=== PATIENT | female | born 1960 | race Caucasian/White ===

== ENCOUNTER 2020-12-18 13:17 | Emergency (ER) | payer SELFPAY ==
[2020-12-18 14:40] LABS: Absolute Lymphocytes (CBC) 2.6 K/uL (0.7-4.9); Basophils % 0.7 % (0-1.3); Hematocrit 24.9 % (36.0-45.0); Lymphocytes % 31.9 % (15.3-44.8); MPV 8.2 fL (7.6-11.3); RBC Red Blood Cell Count 1.84 M/uL (3.86-4.86)
[2020-12-18 14:51] LABS: Protime INR 1.44
--- NOTE | 2020-12-18 15:00 | RAD REPORT ---
EXAM DESCRIPTION: RAD - Chest Single View - 12/18/2020 2:43 pm CLINICAL HISTORY: ABDOMINAL DISTENTION COMPARISON: None TECHNIQUE: AP portable chest image was obtained 12/18/2020 2:43 pm . FINDINGS: Lungs are clear. Mild prominence of the interstitial pattern is favored to be baseline. Fa ilure or volume overload are not suspected. Heart and vasculature are normal. No measurable pleural e ffusion and no pneumothorax. No acute bony abnormality seen. No acute aortic findings suspected. IMPRESSION: No acute cardiopulmonary process.
[2020-12-18] MEDS ORDERED: MORPHINE 2 MG/ML SYR ONE (15:02)
[2020-12-18] MEDS ORDERED: ONDANSETRON 4 MG/2 ML VIAL ONE (15:02)
[2020-12-18 15:11] LABS: ALT/SGPT 48 U/L (12-78); AST/SGOT 116 U/L (15-37); Albumin 2.7 g/dL (3.4-5.0); Alkaline Phosphatase 103 U/L (45-117); BUN Blood Urea Nitrogen 8 mg/dL (7-18); Bicarbonate 24 mmol/L (21-32); Bilirubin Direct 0.7 mg/dL (0-0.2); Bilirubin Total 1.5 mg/dL (0.2-1.0); Glucose Level 92 mg/dL (74-106); Lipase 66 U/L (73-393); Potassium 3.4 mmol/L (3.5-5.1); Protein, Total 6.2 g/dL (6.4-8.2); Sodium Level 140 mmol/L (136-145)
[2020-12-18 15:13] LABS: Magnesium 1.4 mg/dL (1.8-2.4)
[2020-12-18] MEDS ORDERED: DIPHENHYDRAMINE 50 MG/ML VIAL ONE (15:20)
[2020-12-18] MEDS ORDERED: METHYLPREDNISOLONE 125 MG INJ ONE (15:23)
[2020-12-18] MEDS ORDERED: FAMOTIDINE 20 MG/2 ML VIAL IV ONE (15:23)
[2020-12-18 15:49] LABS: Urine Blood Negative (Negative); Urine Glucose Negative (Negative); Urine Protein Negative (Negative); Urine pH 6.5 (5.0-7.0)
[2020-12-18] MEDS ORDERED: Magnesium Sulfate 2gm IVPB 2 G/50 ML BAG IV ONE (15:49)
--- NOTE | 2020-12-18 16:07 | RAD REPORT ---
EXAM DESCRIPTION: CT - Abdomen Pelvis W Contrast - 12/18/2020 3:48 pm CLINICAL HISTORY: Abdominal distention;Abd pain, history of cirrhosis, history hepatitis-B and C COMPARISON: No comparisons TECHNIQUE: Biphasic, helical CT imaging of the abdomen and pelvis was performed following 100 ml non -ionic IV contrast. No oral contrast administered. All CT scans are performed using dose optimization technique as appropriate and may include automated exposure control or mA/KV adjustment according to patient size. FINDINGS: No suspicious findings in the lung bases. Liver is upper normal to slightly enlarged in size and shows nodular capsule contour. Diffuse fatty i nfiltration present with no focal liver parenchymal lesion. No portal vein abnormality. No focal panc reatic process identifiable. No splenomegaly or focal splenic finding. Multiple gallstones layer in t he dependent portion the gallbladder. Slight gallbladder wall thickening or edema seen. Biliary tree is prominent without intrahepatic dilatation. Duct stones can additional gallstones can be occult. Symmetric renal function is seen with no hydronephrosis or suspicious renal mass. No pyelonephritis o r acute parenchymal process. Urinary bladder is mostly contracted which limits assessment. No bladder stone or gross bladder wall abnormality seen. Uterus and ovaries show no suspicious findings. No adr enal abnormalities. No gastric wall abnormality. Small bowel loops are not dilated. No findings to suspect acute appendic itis. There may be minimal wall thickening of the colon. This could be due to electrolyte tissues. No colon mass seen. Acute colitis is not likely or only minimal in severity. Small gastrohepatic ligame nt lymph node is seen. No free air or pneumatosis. Small quantity of free fluid is present in the dependent portion of the pelvis and adjacent to the liver. No mass or bulky lymphadenopathy. Calcifications and surgical cli ps are seen along the pelvic floor. Patient has a very small fat only umbilical hernia. Atrophy of th e abdominal wall musculature noted. Disc and bone degenerative changes are present. No pathologic bone process seen. IMPRESSION: Cirrhosis and fatty infiltration of the liver with no focal liver lesion or portal vein abnormality. Ascites is minimal. No acute GI abnormality confirmed. Mild enteritis is possible.
[2020-12-18 16:10] LABS: Urine Bacteria <20 /HPF (<20); Urine RBC <5 /HPF (NONE SEEN)
--- NOTE | 2020-12-18 16:40 | EDPHYS ---
Physician Documentation [facility] Name: Selina Jasso Age: 60 yrs Sex: Female : 1960 Arrival Date: 12/18/2020 Time: 13:22 Bed 18 Private MD: ED Physician Reed Landeros HPI: 12/18 14:25 This 60 yrs old Female presents to ER via Ambulatory with complaints of cp Abdominal Pain, Urinary Problem. 14:25 The patient presents with abdominal distention that is diffuse. cp 14:25 Onset: The symptoms/episode began/occurred gradually. cp 14:25 The symptoms do not radiate. Associated signs and symptoms: Pertinent positives: cp nausea, flank pain, Pertinent negatives: blood in stools, chest pain, constipation, diarrhea, fever. The symptoms are described as constant. Modifying factors: the symptoms are aggravated by pressure. Historical: - Allergies: 13:42 Codeine; ss 13:42 clindamycin HCl; ss 14:00 Zofran; jd3 - PMHx: 13:42 Cirrhosis; Hypertension; Hepatits B\T\C; ss - PSHx: 13:42 Tubal ligation; Tonsillectomy; L arm; leg; ss - Immunization history:: Adult Immunizations up to date. - Social history:: Smoking status: Patient denies any tobacco usage or history of. ROS: 14:30 Constitutional: Negative for body aches, chills, fever, poor PO intake. cp 14:30 Eyes: Negative for injury, pain, redness, and discharge. cp 14:30 ENT: Negative for ear pain, sore throat, difficulty swallowing, difficulty handling secretions. 14:30 Cardiovascular: Negative for chest pain, edema, palpitations. 14:30 Respiratory: Negative for cough, shortness of breath, wheezing. 14:30 Abdomen/GI: Positive for abdominal pain, abdominal distension, Negative for vomiting, diarrhea, anorexia, black/tarry stool, rectal bleeding. 14:30 Back: Negative for radiated pain. 14:30 Neuro: Negative for altered mental status, headache, weakness. 14:30 All other systems are negative. Exam: 14:35 Constitutional: The patient appears in no acute distress, alert, awake, cp non-diaphoretic, non-toxic, well developed, well nourished. 14:35 Head/Face: Normocephalic, atraumatic. cp 14:35 Eyes: Periorbital structures: appear normal, Conjunctiva: normal, no exudate, no injection, Sclera: no appreciated abnormality, Lids and lashes: appear normal, bilaterally. 14:35 ENT: External ear(s): are unremarkable, Nose: is normal, Mouth: Lips: moist, Oral mucosa: moist, Posterior pharynx: Airway: no evidence of obstruction, patent. 14:35 Chest/axilla: Inspection: normal, Palpation: is normal, no crepitus, no tenderness. 14:35 Cardiovascular: Rate: tachycardic, Rhythm: regular, Edema: is not appreciated, JVD: is not appreciated. 14:35 Respiratory: the patient does not display signs of respiratory distress, Respirations: normal, no use of accessory muscles, no retractions, labored breathing, is not present, Breath sounds: are clear throughout, no decreased breath sounds, no stridor, no wheezing. 14:35 Abdomen/GI: Inspection: distension, that is mild, in the abdomen diffusely, Bowel sounds: active, all quadrants, Palpation: soft, in all quadrants, moderate abdominal tenderness, in all quadrants, rebound tenderness, is not appreciated, involuntary guarding, is not appreciated. 14:35 Back: CVA tenderness, is absent. 14:35 Skin: no rash present. 14:35 Neuro: Orientation: to person, place \T\ time. Mentation: is normal. 15:43 ECG was reviewed by the Attending Physician. cp Vital Signs: 13:38 BP 119 / 81; Pulse 101; Resp 18; Temp 98.4(TE); Pulse Ox 99% on R/A; Height 5 ft. 2 in. ss (157.48 cm); Pain 9/10; 16:09 Pulse 72; Resp 18 S; Pulse Ox 96% on R/A; jd3 18:01 BP 121 / 79; Pulse 70; Resp 17 S; Pulse Ox 97% on R/A; jd3 MDM: 14:14 Patient medically screened. cp 16:38 Data reviewed: vital signs, nurses notes, lab test result(s), EKG, radiologic studies, cp CT scan, plain films. 16:38 Test interpretation: by ED physician or midlevel provider: ECG, plain radiologic cp studies. 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 ED course: VSS. Pain improved. Will discharge to home for continued monitoring. Patient instructed to f/u with GI for chronic cirrhosis. 12/18 14:17 Order name: Basic Metabolic Panel; Complete Time: 15:19 cp 12/18 15:19 Interpretation: Normal except: K 3.4; CL 109. cp 12/18 14:17 Order name: CBC with Diff cp 12/18 15:20 Interpretation: Normal except: RBC 1.84; HGB 8.5; HCT 24.9; MCV 135.4; MCH 46.0; PLT cp 122; RDW 16.2. 12/18 14:17 Order name: Hepatic Function; Complete Time: 15:19 cp 12/18 15:20 Interpretation: Normal except: AST 116; BILIT 1.5; BILID 0.7; TP 6.2; ALB 2.7; A/G 0.8. cp 12/18 14:17 Order name: Lipase; Complete Time: 15:19 cp 12/18 16:28 Interpretation: LIP 66; Reviewed. cp 12/18 14:17 Order name: Magnesium; Complete Time: 15:19 cp 12/18 15:20 Interpretation: Abnormal: MG 1.4. cp 12/18 14:17 Order name: PT-INR; Complete Time: 15:19 cp 12/18 16:36 Interpretation: Abnormal: PT 16.6. cp 12/18 14:17 Order name: Ptt, Activated; Complete Time: 15:19 cp 12/18 14:17 Order name: Urine Microscopic Only; Complete Time: 16:27 cp 12/18 16:27 Interpretation: Reviewed. cp 12/18 14:17 Order name: XRAY Chest (1 view); Complete Time: 15:19 cp 12/18 15:21 Order name: CT Abd/Pelvis - IV Contrast Only; Complete Time: 16:27 cp 12/18 15:49 Order name: Urine Dipstick-Ancillary; Complete Time: 16:27 EDMS 12/18 16:46 Order name: CBC Smear Scan EDMS 12/18 14:17 Order name: IV Saline Lock; Complete Time: 14:18 cp 12/18 14:17 Order name: Labs collected and sent; Complete Time: 14:20 cp 12/18 15:21 Order name: EKG; Complete Time: 15:22 cp 12/18 15:21 Order name: EKG - Nurse/Tech; Complete Time: 15:40 cp EC:43 Rate is 77 beats/min. Rhythm is regular. WA interval is normal. QRS interval is normal. cp QT interval is normal. T waves are Inverted in lead aVR. Interpreted by me. Reviewed by me. Administered Medications: 14:48 Drug: morphine 2 mg Route: IVP; Site: left forearm; jd3 15:42 Follow up: Response: No adverse reaction; RASS: Alert and Calm (0) jd3 14:49 Drug: Zofran (Ondansetron) 4 mg Route: IVP; Site: left forearm; jd3 15:03 Follow up: Response: Adverse reaction, Physician notified; Adverse reaction, Physician jd3 notified, pt with hives up her arm from the site of the IV that itch. 15:03 Drug: Benadryl (diphenhydrAMINE) 25 mg Route: IVP; Site: left forearm; jd3 15:10 Drug: Pepcid (famotidine) 20 mg Route: IVP; Site: left forearm; jd3 15:11 Drug: SOLU-Medrol (methylPrednisoLONE) 125 mg Route: IVP; Site: left forearm; jd3 15:40 Drug: Magnesium Sulfate 2 grams Route: IVPB; Infused Over: 2 hrs; Site: left forearm; jd3 17:34 Drug: Potassium Effervescent Tablet 50 mEq Route: PO; jd3 17:34 Drug: ProTONIX (pantoprazole) 40 mg Route: PO; jd3 Disposition: 12/19 07:17 Co-signature as Attending Physician, Reed Landeros MD I agree with the assessment and reyna plan of care. Disposition: 12/18/20 16:39 Discharged to Home. Impression: Unspecified cirrhosis of liver, Disorder of teeth and supporting structures, unspecified, Hypomagnesemia, Ascites. - Condition is Stable. - Discharge Instructions: Ascites, Dental Pain, Hypomagnesemia. - Prescriptions for Amoxicillin 875 mg Oral Tablet - take 1 tablet by ORAL route every 12 hours for 10 days; 20 tablet. Bentyl 20 mg Oral Tablet - take 2 tablets by ORAL route every 6 hours As needed; 30 tablet. Protonix 40 mg Oral Tablet - take 1 tablet by ORAL route once daily; 30 tablet. - Medication Reconciliation Form, Thank You Letter, Antibiotic Education, Prescription Opioid Use form. - Follow up: Angelo Dela Cruz MD; When: 2 - 3 days; Reason: Recheck today's complaints. - Problem is an ongoing problem. - Symptoms have improved. Signatures: Dispatcher [employer] EDReed Canales MD MD cha Williams, Irene, RN RN iw Joslyn Foy RN RN ss Reed Garg, REYNA PA Tra West RN RN jd3 Corrections: (The following items were deleted from the chart) 12/18 16:40 16:39 12/18/2020 16:39 Discharged to Home. Impression: Unspecified cirrhosis of liver; cp Disorder of teeth and supporting structures, unspecified; Hypomagnesemia. Condition is Stable. Forms are Medication Reconciliation Form, Thank You Letter, Antibiotic Education, Prescription Opioid Use. Follow up: Angelo Dela Cruz; When: 2 - 3 days; Reason: Recheck today's complaints. Problem is an ongoing problem. Symptoms have improved. cp 18:06 16:40 12/18/2020 16:39 Discharged to Home. Impression: Unspecified cirrhosis of liver; iw Disorder of teeth and supporting structures, unspecified; Hypomagnesemia; Ascites. Condition is Stable. Discharge Instructions: Ascites, Dental Pain, Hypomagnesemia. Forms are Medication Reconciliation Form, Thank You Letter, Antibiotic Education, Prescription Opioid Use. Follow up: Angelo Dela Cruz; When: 2 - 3 days; Reason: Recheck today's complaints. Problem is an ongoing problem. Symptoms have improved. cp
--- NOTE | 2020-12-18 16:40 | ER ---
Nurse's Notes [facility] Name: Selina Jasso Age: 60 yrs Sex: Female : 1960 Arrival Date: 12/18/2020 Time: 13:22 Bed 18 Private MD: Diagnosis: Unspecified cirrhosis of liver;Disorder of teeth and supporting structures, unspecified;Hypomagnesemia;Ascites Presentation: 12/18 13:38 Chief complaint: Patient states: "I have liver cirrhosis and I'm retaining water bad. I ss also have reflux and kidney pain.". Coronavirus screen: Client denies travel out of the [place] in the last 14 days. Ebola Screen: Patient denies exposure to infectious person. Patient denies travel to an Ebola-affected area in the 21 days before illness onset. Initial Sepsis Screen: Does the patient meet any 2 criteria? No. Patient's initial sepsis screen is negative. Does the patient have a suspected source of infection? No. Patient's initial sepsis screen is negative. Risk Assessment: Do you want to hurt yourself or someone else? Patient reports no desire to harm self or others. Onset of symptoms was December 04, 2020. 13:38 Method Of Arrival: Ambulatory ss 13:38 Acuity: GABRIEL 3 ss Historical: - Allergies: 13:42 Codeine; ss 13:42 clindamycin HCl; ss 14:00 Zofran; jd3 - PMHx: 13:42 Cirrhosis; Hypertension; Hepatits B\\T\\C; ss - PSHx: 13:42 Tubal ligation; Tonsillectomy; L arm; leg; ss - Immunization history:: Adult Immunizations up to date. - Social history:: Smoking status: Patient denies any tobacco usage or history of. Screenin:11 Abuse screen: Denies threats or abuse. Nutritional screening: No deficits noted. jd3 Tuberculosis screening: No symptoms or risk factors identified. Fall Risk Ambulatory Aid- None/Bed Rest/Nurse Assist (0 pts). Gait- Normal/Bed Rest/Wheelchair (0 pts) Mental Status- Oriented to own ability (0 pts). Total Malave Fall Scale indicates No Risk (0-24 pts). Assessment: 14:05 General: Appears in no apparent distress. comfortable, Behavior is calm, cooperative, jd3 appropriate for age. Pain: Complains of pain in abdomen Quality of pain is described as aching, pressure. Neuro: Level of Consciousness is awake, alert, obeys commands, Oriented to person, place, time, situation. Cardiovascular: Denies chest pain, Capillary refill < 3 seconds Patient's skin is warm and dry. Respiratory: Airway is patent Respiratory effort is even, unlabored, Respiratory pattern is regular, symmetrical, Denies cough, shortness of breath. GI: Abdomen is round distended, Abd is soft X 4 quads Reports lower abdominal pain, upper abdominal pain, Patient currently denies diarrhea, nausea, vomiting. : No signs and/or symptoms were reported regarding the genitourinary system. EENT: No signs and/or symptoms were reported regarding the EENT system. Derm: Skin is intact, Skin is dry, Skin is normal, Skin temperature is warm. Musculoskeletal: Circulation, motion, and sensation intact. Range of motion: intact in all extremities. 15:00 Reassessment: Patient appears in no apparent distress at this time. No changes from jd3 previously documented assessment. Patient and/or family updated on plan of care and expected duration. Pain level reassessed. Patient is alert, oriented x 3, equal unlabored respirations, skin warm/dry/pink. 16:00 Reassessment: Patient appears in no apparent distress at this time. No changes from jd3 previously documented assessment. Patient and/or family updated on plan of care and expected duration. Pain level reassessed. Patient is alert, oriented x 3, equal unlabored respirations, skin warm/dry/pink. 17:00 Reassessment: Patient appears in no apparent distress at this time. Patient and/or jd3 family updated on plan of care and expected duration. Pain level reassessed. Patient is alert, oriented x 3, equal unlabored respirations, skin warm/dry/pink. 18:00 Reassessment: Patient appears in no apparent distress at this time. Patient and/or jd3 family updated on plan of care and expected duration. Pain level reassessed. Patient is alert, oriented x 3, equal unlabored respirations, skin warm/dry/pink. reported understanding of discharge instructions, even and steady gait upon discharge. Vital Signs: 13:38 BP 119 / 81; Pulse 101; Resp 18; Temp 98.4(TE); Pulse Ox 99% on R/A; Height 5 ft. 2 in. ss (157.48 cm); Pain 9/10; 16:09 Pulse 72; Resp 18 S; Pulse Ox 96% on R/A; jd3 18:01 BP 121 / 79; Pulse 70; Resp 17 S; Pulse Ox 97% on R/A; jd3 ED Course: 13:22 Patient arrived in ED. mr 13:40 Triage completed. ss 13:42 Arm band placed on right wrist. ss 14:07 Reed Garg PA is PHCP. cp 14:07 Reed Landeros MD is Attending Physician. cp 14:07 Tra Spaulding RN is Primary Nurse. jd3 14:35 Inserted saline lock: 20 gauge in left forearm, using aseptic technique. Blood tr6 collected. 14:43 XRAY Chest (1 view) In Process Unspecified. EDMS 15:00 Patient has correct armband on for positive identification. Placed in gown. Bed in low jd3 position. Call light in reach. Side rails up X 1. 15:00 Pulse ox on. NIBP on. jd3 15:48 CT Abd/Pelvis - IV Contrast Only In Process Unspecified. EDMS 16:38 Angelo Dela Cruz MD is Referral Physician. cp 18:03 No provider procedures requiring assistance completed. IV discontinued, intact, jd3 bleeding controlled, No redness/swelling at site. Pressure dressing applied. Administered Medications: 14:48 Drug: morphine 2 mg Route: IVP; Site: left forearm; jd3 15:42 Follow up: Response: No adverse reaction; RASS: Alert and Calm (0) jd3 14:49 Drug: Zofran (Ondansetron) 4 mg Route: IVP; Site: left forearm; jd3 15:03 Follow up: Response: Adverse reaction, Physician notified; Adverse reaction, Physician jd3 notified, pt with hives up her arm from the site of the IV that itch. 15:03 Drug: Benadryl (diphenhydrAMINE) 25 mg Route: IVP; Site: left forearm; jd3 15:10 Drug: Pepcid (famotidine) 20 mg Route: IVP; Site: left forearm; jd3 15:11 Drug: SOLU-Medrol (methylPrednisoLONE) 125 mg Route: IVP; Site: left forearm; jd3 15:40 Drug: Magnesium Sulfate 2 grams Route: IVPB; Infused Over: 2 hrs; Site: left forearm; jd3 17:34 Drug: Potassium Effervescent Tablet 50 mEq Route: PO; jd3 17:34 Drug: ProTONIX (pantoprazole) 40 mg Route: PO; jd3 Outcome: 16:39 Discharge ordered by MD. cp 18:05 Discharged to home ambulatory. iw 18:05 Condition: good 18:05 Discharged to home ambulatory, with family. jd3 18:05 Condition: stable 18:05 Discharge instructions given to patient, Instructed on discharge instructions, follow up and referral plans. medication usage, Demonstrated understanding of instructions, follow-up care, medications, Prescriptions given X 3. 18:06 Discharge instructions given to patient, Instructed on discharge instructions, follow iw up and referral plans. medication usage, Demonstrated understanding of instructions, follow-up care, medications, Prescriptions given X 3. 18:06 Patient left the ED. iw Signatures: Dispatcher [employer] EDDC Joel Linda Alix Herrera RN RN Joslyn Foy RN RN Reed Garg PA PA cp Davies, Jonathon, RN RN j Lesly Piper RN RN tr6 Corrections: (The following items were deleted from the chart) 15:41 15:03 Benadryl (diphenhydrAMINE) 25 mg IVP in left antecubital jd3 j 15:41 15:10 Pepcid (famotidine) 20 mg IVP in left antecubital [facility] j 15:41 15:11 SOLU-Medrol (methylPrednisoLONE) 125 mg IVP in left antecubital jd3 j 15:42 14:48 morphine 2 mg IVP in left antecubital jd3 j 15:43 14:49 Zofran (Ondansetron) 4 mg IVP in left antecubital jd3 j
[2020-12-18 16:49] LABS: Anisocytosis 2+; Blood Morphology Comment NOTED (NOT SEEN); Platelet Estimate DECR; Poikilocytosis 2+; White Blood Cell Scan OK (OK)
[2020-12-18] MEDS ORDERED: PANTOPRAZOLE 40MG TABLET PO ONE ×2 (17:30→17:53)
[2020-12-18] MEDS ORDERED: POTASSIUM 25 MEQ EFFERV TAB ONE (17:31)
[2020-12-18 18:21] VITALS: TEMP 98.4
[2020-12-18 18:24] VITALS: BP 121/79; O2SAT 97
--- NOTE | 2020-12-19 10:28 | EKG ---
Test Date: 2020-12-18 Test Time: 15:36:50 Fireboat Operator: DELVIS MEASUREMENT RESULTS: Intervals: Rate: 77 PA: 136 QRSD: 68 QT: 418 QTc: 473 [place]: P: 65 PA: 136 QRS: 49 T: 54 INTERPRETIVE STATEMENTS: Normal sinus rhythm Cannot rule out Anterior infarct, age undetermined Abnormal ECG No previous ECG available for comparison Electronically Signed On 12-19-20 10:25:47 CDT by Luther Rhoades
== END 2020-12-18 18:06 | disposition home or self-care (01) ==
LOC: ER 13:17
DX: R18.8 Other ascites (principal); K74.60 Unspecified cirrhosis of liver; E83.42 Hypomagnesemia; K08.9 Disorder of teeth and supporting structures, unspecified; I10 Essential (primary) hypertension; Z88.1 Allergy status to other antibiotic agents; Z88.5 Allergy status to narcotic agent; Z88.8 Allergy status to other drugs, medicaments and biological substances
CPT/HCPCS: 36415; 71045; 74177; 80048; 80076; 81003; 81015; 83690; 83735; 85025; 85610; 85730; 93005; 96374; 96375; 99284; J1200; J2270; J2405; J2930; J3475; Q9967

== ENCOUNTER 2021-01-16 16:43 | Emergency (ER) | payer SELFPAY ==
--- OUTSIDE RECORDS SUMMARY | 2021-01-16 16:45 | XMS REPORT | Continuity of Care Document ---
:1960 Author Organization [facility] t Address [address] [place] [address] Care Team Providers Name Role Phone [place] Attending Clinician Unavailable Betsy Gomez MD Attending Clinician Doctor Unassigned, Name Attending Clinician Unavailable Problems This patient has no known problems. Allergies, Adverse Reactions, Alerts This patient has no known allergies or adverse reactions. Medications This patient has no known medications. Procedures This patient has no known procedures. Encounters Start End Encounter Admission Attending Care Care Encounter Source Date/Time Date/Time Type Type Clinicians Facility Department ID 2020-11-20 2020-11-20 Letter JAMES Titus [id number] 00:00:00 00:00:00 (Out) [facility]rology [facility] [id number] [facility] [id number] 2020-08-14 2020-08-14 Telephone SHON Gomez [id number] 00:00:00 00:00:00 Norma [facility] [id number] [facility] [place] [id number] [facility] [id number] [facility] 2020-07-20 2020-07-20 Orders Doctor RHODES [id number] 00:00:00 00:00:00 Only Unassigned, DEE [id number] [facility] [id number] Results This patient has no known results.
[2021-01-16 21:18] LABS: Absolute Lymphocytes (CBC) 2.1 K/uL (0.7-4.9); Hematocrit 33.3 % (36.0-45.0); Lymphocytes % 18.1 % (15.3-44.8); MPV 8.3 fL (7.6-11.3); RBC Red Blood Cell Count 2.77 M/uL (3.86-4.86)
[2021-01-16 21:19] LABS: Protime INR 1.44
--- NOTE | 2021-01-16 21:30 | RAD REPORT ---
EXAM DESCRIPTION: RAD - Chest Single View - 01/16/2021 8:50 pm CLINICAL HISTORY: COUGH COMPARISON: Chest Single View dated 12/18/2020 FINDINGS: No evidence of edema or pneumonia. The heart size is within normal limits.No acute osseous abnormality. No significant pleural effusions or pneumothorax. IMPRESSION: No acute cardiopulmonary disease.
[2021-01-16] MEDS ORDERED: NA CHLORIDE 0.9% 1,000 ML ONE (21:34)
[2021-01-16] MEDS ORDERED: FAMOTIDINE 20 MG/2 ML VIAL IV ONE (21:34)
[2021-01-16 21:38] LABS: ALT/SGPT 31 U/L (12-78); AST/SGOT 63 U/L (15-37); Albumin 2.1 g/dL (3.4-5.0); Alkaline Phosphatase 72 U/L (45-117); BUN Blood Urea Nitrogen 9 mg/dL (7-18); Bicarbonate 22 mmol/L (21-32); Bilirubin Direct 0.4 mg/dL (0-0.2); Bilirubin Total 0.7 mg/dL (0.2-1.0); Glucose Level 137 mg/dL (74-106); Lipase 81 U/L (73-393); Magnesium 1.8 mg/dL (1.8-2.4); NT PRO-BNP 433 pg/mL (<125); Potassium 3.5 mmol/L (3.5-5.1); Protein, Total 6.5 g/dL (6.4-8.2); Sodium Level 142 mmol/L (136-145); Troponin (Emerg Dept Use Only) < 0.02 ng/mL (0.0-0.045)
[2021-01-16 21:39] LABS: Platelet Estimate ADEQ; White Blood Cell Scan OK (OK)
[2021-01-16 21:40] LABS: Blood Morphology Comment NOTED (NOT SEEN); Macrocytosis 3+
[2021-01-16 22:03] LABS: Urine Blood Negative (Negative); Urine Glucose Negative (Negative); Urine Protein 1+ (Negative); Urine Specific Gravity 1.025 (1.005-1.030); Urine pH 5.5 (5.0-7.0)
--- NOTE | 2021-01-16 22:08 | RAD REPORT ---
EXAM DESCRIPTION: CT - Head Brain Wo Cont - 01/16/2021 9:57 pm COMPARISON: None. TECHNIQUE: Axial 5 mm thick images of the head were obtained without IV contrast. All CT scans are performed using dose optimization technique as appropriate and may include automated exposure control or mA/KV adjustment according to patient size. FINDINGS: No intracranial hemorrhage, mass, edema or shift of mid-line structures. No acute infarcti on changes seen. No abnormal extra-axial fluid collections. Remote appearing left basal ganglia lacun ar infarct. Mild chronic small vessel ischemic changes. Mastoid air cells and visualized portions of the paranasal sinuses are clear. No acute bony findings. IMPRESSION: Negative non-contrast CT head examination.
--- NOTE | 2021-01-16 22:16 | RAD REPORT ---
EXAM DESCRIPTION: CTAbdomen Pelvis W Contrast - 01/16/2021 10:00 pm CLINICAL HISTORY: Abdominal pain. Abd pain;Abdominal distention COMPARISON: Abdomen Pelvis W Contrast dated 01/04/2021; Abdomen Pelvis W Contrast dated 12/18/2020; Cholangiogram dated 01/04/2021 TECHNIQUE: Biphasic CT imaging of the abdomen and pelvis was performed with 100 ml non-ionic IV cont rast. All CT scans are performed using dose optimization technique as appropriate and may include automated exposure control or mA/KV adjustment according to patient size. FINDINGS: Dependent atelectasis. Cirrhotic liver morphology. No focal liver lesions are seen. Surgical changes from recent cholecystec letitia. There is a mild to moderate volume of free air within the abdomen with some fluid as well. No l oculated fluid collections are identified. No bowel obstruction is identified. Atherosclerosis. Renal scarring. The spleen is within normal limits. The former location of the patient's right lower quadr ant surgical drain noted where there is gas in the anterior abdominal wall as well as a tract of flui d. Slight inferior endplate deformity of T12 is unchanged. New T10 compression deformity with less than 20% loss of height. . IMPRESSION: 1. Surgical changes from recent cholecystectomy. Moderate volume of free air and free f luid which is more than expected given recent surgery and could reflect hollow viscus perforation. No discrete collection to suggest abscess. 2. New mild superior endplate compression deformity at T10 concerning for a acute compression fractur e. No bony retropulsion.
--- NOTE | 2021-01-16 22:43 | EDPHYS ---
Physician Documentation [facility] Name: Selina Hickey Age: 60 yrs Sex: Female : 1960 Arrival Date: 01/16/2021 Time: 16:44 Bed 17 Private MD: ARNOLD Physician Reed Landeros HPI: 01/16 20:38 This 60 yrs old Female presents to ER via Wheelchair with complaints of reyna bowel/urine incontinence, General Weakness. 20:38 The patient presents with abdominal pain abdominal distention in the upper abdomen, in reyna the lower abdomen. Onset: The symptoms/episode began/occurred 2 day(s) ago. weak all over , cirrhosis, draining RUQ, drain out, vel last week. Onset: The symptoms/episode began/occurred 3 day(s) ago. The symptoms do not radiate. Associated signs and symptoms: none. The symptoms are described as constant, crampy. Modifying factors: The symptoms are alleviated by nothing, the symptoms are aggravated by nothing. Severity of pain: At its worst the pain was mild moderate in the emergency department the pain is unchanged. Severity of symptoms: At their worst the symptoms were mild moderate in the emergency department the symptoms are unchanged. Historical: - Allergies: 16:53 Codeine; hb 16:53 Clindamycin; hb 16:53 Vancomycin; hb 16:53 Zofran; hb - PMHx: 16:53 Cirrhosis; Hepatits B\T\C; Hypertension; hb - Immunization history:: Adult Immunizations up to date. - Social history:: Smoking status: Patient denies any tobacco usage or history of. - Family history:: not pertinent. ROS: 20:38 Constitutional: Negative for fever, chills, and weight loss, Eyes: Negative for injury, reyna pain, redness, and discharge, ENT: Negative for injury, pain, and discharge, Neck: Negative for injury, pain, and swelling, Cardiovascular: Negative for chest pain, palpitations, and edema, Respiratory: Negative for shortness of breath, cough, wheezing, and pleuritic chest pain, Back: Negative for injury and pain, : Negative for injury, bleeding, discharge, and swelling, MS/Extremity: Negative for injury and deformity, Skin: Negative for injury, rash, and discoloration, Neuro: Negative for headache, weakness, numbness, tingling, and seizure, Psych: Negative for depression, anxiety, suicide ideation, homicidal ideation, and hallucinations, Allergy/Immunology: Negative for hives, rash, and allergies, Endocrine: Negative for neck swelling, polydipsia, polyuria, polyphagia, and marked weight changes, Hematologic/Lymphatic: Negative for swollen nodes, abnormal bleeding, and unusual bruising. 20:38 Abdomen/GI: Positive for Exam: 20:38 Constitutional: This is a well developed, well nourished patient who is awake, alert, reyna and in no acute distress. Head/Face: Normocephalic, atraumatic. Eyes: Pupils equal round and reactive to light, extra-ocular motions intact. Lids and lashes normal. Conjunctiva and sclera are non-icteric and not injected. Cornea within normal limits. Periorbital areas with no swelling, redness, or edema. ENT: Nares patent. No nasal discharge, no septal abnormalities noted. Tympanic membranes are normal and external auditory canals are clear. Oropharynx with no redness, swelling, or masses, exudates, or evidence of obstruction, uvula midline. Mucous membranes moist. Neck: Trachea midline, no thyromegaly or masses palpated, and no cervical lymphadenopathy. Supple, full range of motion without nuchal rigidity, or vertebral point tenderness. No Meningismus. Chest/axilla: Normal chest wall appearance and motion. Nontender with no deformity. No lesions are appreciated. Cardiovascular: Regular rate and rhythm with a normal S1 and S2. No gallops, murmurs, or rubs. Normal PMI, no JVD. No pulse deficits. Respiratory: Lungs have equal breath sounds bilaterally, clear to auscultation and percussion. No rales, rhonchi or wheezes noted. No increased work of breathing, no retractions or nasal flaring. Back: No spinal tenderness. No costovertebral tenderness. Full range of motion. Female : Normal external genitalia. Skin: Warm, dry with normal turgor. Normal color with no rashes, no lesions, and no evidence of cellulitis. MS/ Extremity: Pulses equal, no cyanosis. Neurovascular intact. Full, normal range of motion. Neuro: Awake and alert, GCS 15, oriented to person, place, time, and situation. Cranial nerves II-XII grossly intact. Motor strength 5/5 in all extremities. Sensory grossly intact. Cerebellar exam normal. Normal gait. Psych: Awake, alert, with orientation to person, place and time. Behavior, mood, and affect are within normal limits. 20:38 Abdomen/GI: Bowel sounds: active, Palpation: mild abdominal tenderness, in all quadrants, Liver: is firm, Hernia: not appreciated. 20:38 Skin: Appearance: Color: pale. 21:32 ECG was reviewed by the Attending Physician. [facility] Vital Signs: 16:49 BP 108 / 79; Pulse 98; Resp 20; Temp 97.5; Pulse Ox 98% on R/A; Weight 54.43 kg; Height hb 5 ft. 2 in. (157.48 cm); Pain 8/10; 16:49 Body Mass Index 21.95 (54.43 kg, 157.48 cm) hb MDM: 20:11 Patient medically screened. reyna 20:41 Differential Diagnosis altered mental status. Differential diagnosis: bowel reyna obstruction, gastritis, non-specific abd pain, pancreatitis, Peptic Ulcer Disease, Peritonitis, urinary tract infection. Data reviewed: vital signs, nurses notes, lab test result(s), EKG, radiologic studies, CT scan, plain films. Data interpreted: residential monitor: rate is 98 beats/min, rhythm is regular, Pulse oximetry: on room air is 98 %. Test interpretation: by ED physician or midlevel provider: ECG, plain radiologic studies. Counseling: I had a detailed discussion with the patient and/or guardian regarding: the historical points, exam findings, and any diagnostic results supporting the discharge/admit diagnosis, lab results, radiology results. 22:43 Physician consultation: Timo Priest MD and will see patient in office, on . 01/16 20:37 Order name: Basic Metabolic Panel [facility] 01/16 20:37 Order name: CBC with Diff [facility] 01/16 20:37 Order name: LFT's; Complete Time: 21:39 [facility] 01/16 20:37 Order name: Magnesium; Complete Time: 21:39 [facility] 01/16 20:37 Order name: NT PRO-BNP; Complete Time: 21:39 [facility] 01/16 20:37 Order name: PT-INR; Complete Time: 21:39 [facility] 01/16 20:37 Order name: Troponin (emerg Dept Use Only); Complete Time: 21:39 [facility] 01/16 20:37 Order name: Lipase; Complete Time: 21:39 [facility] 01/16 20:37 Order name: AMMONIA; Complete Time: 21:39 [facility] 01/16 20:37 Order name: Urine Culture [facility] 01/16 20:38 Order name: Basic Metabolic Panel; Complete Time: 21:39 [facility] 01/16 20:38 Order name: CBC with Automated Diff; Complete Time: 21:59 [facility] 01/16 20:47 Order name: Type And Screen [facility] 01/16 20:37 Order name: XRAY Chest (1 view); Complete Time: 21:39 [facility] 01/16 20:37 Order name: EKG; Complete Time: 20:38 [facility] 01/16 20:37 Order name: Cardiac monitoring; Complete Time: 22:25 [facility] 01/16 20:37 Order name: EKG - Nurse/Tech; Complete Time: 21:30 [facility] 01/16 20:37 Order name: IV Saline Lock; Complete Time: 21:30 [facility] 01/16 20:37 Order name: Labs collected and sent; Complete Time: 21:30 [facility] 01/16 20:37 Order name: O2 Per Protocol; Complete Time: 21:30 [facility] 01/16 20:37 Order name: CT Head Brain wo Cont; Complete Time: 22:30 [facility] 01/16 20:37 Order name: CT Abd/Pelvis - IV Contrast Only; Complete Time: 22:30 [facility] 01/16 21:40 Order name: CBC Smear Scan; Complete Time: 21:59 [facility] 01/16 22:03 Order name: Urine Dipstick-Ancillary; Complete Time: 22:30 [facility] 01/16 23:09 Order name: SARS-COV-2 RT PCR [facility] 01/16 20:37 Order name: O2 Sat Monitoring; Complete Time: 21:30 [facility] 01/16 20:37 Order name: Urine Dipstick-Ancillary (obtain specimen); Complete Time: 22:25 [facility] EC:32 Rate is 76 beats/min. Rhythm is regular. QRS S[place] is Normal. NC interval is normal. QRS reyna interval is normal. QT interval is normal. No Q waves. T waves are Normal. No ST changes noted. Clinical impression: Normal ECG and No evidence of ischemia. Interpreted by me. Reviewed by me. Administered Medications: 21:47 Drug: NS 0.9% 1000 ml Route: IV; Rate: 125 ml/hr; Site: right forearm; bs2 21:47 Drug: Pepcid (famotidine) 20 mg Route: IVP; Site: right forearm; bs2 22:25 Follow up: Response: No adverse reaction bs2 23:24 Drug: Rocephin (cefTRIAXone) 1 grams Route: IV; Rate: per protocol; Site: left ld1 antecubital; 23:24 Drug: Cipro (ciprofloxacin) 500 mg Route: PO; ld1 Disposition Summary: 01/16/21 22:42 Discharge Ordered Location: Home reyna Problem: new reyna Symptoms: have improved reyna Condition: Stable reyna Diagnosis - Alcoholic cirrhosis of liver with ascites reyna - UTI/ Urinary tract infection, site not specified reyna Followup: reyna - With: Private Physician - When: 2 - 3 days - Reason: Recheck today's complaints, Continuance of care, Re-evaluation by your physician Followup: reyna - With: Sriram Loya MD - When: 2 - 3 days - Reason: Recheck today's complaints, Re-evaluation by your physician Followup: reyna - With: Timo Priest MD - When: 1 - 2 days - Reason: Recheck today's complaints, Continuance of care, Re-evaluation by your physician Discharge Instructions: - Discharge Summary Sheet reyna - Ascites reyna - Cirrhosis reyna - Dysuria reyna - Urinary Tract Infection, Adult reyna Forms: - Medication Reconciliation Form reyna - Thank You Letter reyna - Antibiotic Education reyna - Prescription Opioid Use [facility] Prescriptions: - Cipro 250 mg Oral Tablet - take 1 tablet by ORAL route every 12 hours; 14 tablet; Refills: 0, Product [facility] Selection Permitted - Pepcid 20 mg Oral Tablet - take 1 tablet by ORAL route every 12 hours for 15 days; 30 tablet; Refills: 0, [facility] Product Selection Permitted Signatures: Dispatcher [employer] EDMS Reed Landeros MD MD cha Baxter, Heather RN TAMIKA hb Darlyn Barnett RN RN ld1 Janie Martinez RN RN bs2 Corrections: (The following items were deleted from the chart) 16:54 16:53 Allergies: ondansetron; hb hb 16:54 16:53 Allergies: clindamycin HCl; hb hb 17:47 16:53 PMHx: Thyroid CA; hb hb 22:04 20:48 CORONAVIRUS+MR.LAB.BRZ ordered. EDMS EDMS
--- NOTE | 2021-01-16 22:43 | ER ---
Nurse's Notes [facility] Name: Selina Hickey Age: 60 yrs Sex: Female : 1960 Arrival Date: 01/16/2021 Time: 16:44 Bed 17 Private MD: Diagnosis: Alcoholic cirrhosis of liver with ascites;UTI/ Urinary tract infection, site not specified Presentation: 01/16 16:49 Coronavirus screen: At this time, the client does not indicate any symptoms associated hb with coronavirus-19. Ebola Screen: No symptoms or risks identified at this time. Initial Sepsis Screen: Does the patient meet any 2 criteria? No. Patient's initial sepsis screen is negative. Does the patient have a suspected source of infection? No. Patient's initial sepsis screen is negative. Risk Assessment: Do you want to hurt yourself or someone else? Patient reports no desire to harm self or others. Onset of symptoms was January 16, 2021. 16:49 Method Of Arrival: Wheelchair hb 16:49 Chief complaint: Generalized weakness, dizziness, and incontinence since hb cholecystectomy and hernia repair 01/06. 16:49 Acuity: GABRIEL 3 hb Historical: - Allergies: 16:53 Codeine; hb 16:53 Clindamycin; hb 16:53 Vancomycin; hb 16:53 Zofran; hb - PMHx: 16:53 Cirrhosis; Hepatits B\T\C; Hypertension; hb - Immunization history:: Adult Immunizations up to date. - Social history:: Smoking status: Patient denies any tobacco usage or history of. - Family history:: not pertinent. Screenin:26 Abuse screen: Denies threats or abuse. Denies injuries from another. Nutritional bs2 screening: No deficits noted. Tuberculosis screening: No symptoms or risk factors identified. Fall Risk None identified. Assessment: 20:26 General: Appears uncomfortable, well groomed, well developed, well nourished, Behavior bs2 is calm, cooperative, appropriate for age. Pain: Complains of pain in abdomen Pain currently is 5 out of 10 on a pain scale. Pain began 1 day ago. Neuro: No deficits noted. Cardiovascular: No deficits noted. Respiratory: No deficits noted. GI: Abdomen is round non-distended, Last BM was January 16, 2021. Bowel sounds present X 4 quads. Abd is soft X 4 quads Abdomen is tender to palpation X 4 quads. Reports lower abdominal pain, upper abdominal pain. : No deficits noted. No signs and/or symptoms were reported regarding the genitourinary system. EENT: No deficits noted. No signs and/or symptoms were reported regarding the EENT system. Derm: No signs and/or symptoms reported regarding the dermatologic system. 20:28 General: pt had cholecystectomy, hernia repair and liver biopsy 01/06/2021, was sent home bs2 with drain to RT upper quadrant, drain was removed yesterday and pt states consistent drainage since of light green liquid. . Vital Signs: 16:49 BP 108 / 79; Pulse 98; Resp 20; Temp 97.5; Pulse Ox 98% on R/A; Weight 54.43 kg; Height hb 5 ft. 2 in. (157.48 cm); Pain 8/10; 16:49 Body Mass Index 21.95 (54.43 kg, 157.48 cm) hb ED Course: 16:44 Patient arrived in ED. as 16:49 Arm band placed on. hb 16:53 Triage completed. hb 20:11 Janie Martinez, RN is Primary Nurse. bs2 20:11 Reed Landeros MD is Attending Physician. reyna 20:26 Patient has correct armband on for positive identification. Placed in gown. Bed in low bs2 position. Call light in reach. Side rails up X2. Adult w/ patient. Pulse ox on. NIBP on. Door closed. Warm blanket given. 20:50 XRAY Chest (1 view) In Process Unspecified. EDMS 21:30 Type And Screen Sent. bs2 21:30 Basic Metabolic Panel Sent. bs2 21:30 Lipase Sent. bs2 21:30 Basic Metabolic Panel Sent. bs2 21:30 CBC with Diff Sent. bs2 21:30 LFT's Sent. bs2 21:30 Magnesium Sent. bs2 21:30 NT PRO-BNP Sent. bs2 21:30 Troponin (emerg Dept Use Only) Sent. bs2 21:57 CT Head Brain wo Cont In Process Unspecified. EDMS 22:00 CT Abd/Pelvis - IV Contrast Only In Process Unspecified. EDMS 22:25 Urine Culture Sent. bs2 22:41 Sriram Loya MD is Referral Physician. reyna 22:42 Timo Priest MD is Referral Physician. reyna 23:37 No provider procedures requiring assistance completed. IV discontinued, intact, ld1 bleeding controlled, No redness/swelling at site. Administered Medications: 21:47 Drug: NS 0.9% 1000 ml Route: IV; Rate: 125 ml/hr; Site: right forearm; bs2 21:47 Drug: Pepcid (famotidine) 20 mg Route: IVP; Site: right forearm; bs2 22:25 Follow up: Response: No adverse reaction bs2 23:24 Drug: Rocephin (cefTRIAXone) 1 grams Route: IV; Rate: per protocol; Site: left ld1 antecubital; 23:24 Drug: Cipro (ciprofloxacin) 500 mg Route: PO; ld1 Outcome: 22:42 Discharge ordered by . [facility] 23:37 Discharged to home via wheelchair, with family. ld1 23:37 Condition: stable 23:37 Discharge instructions given to patient, Instructed on discharge instructions, follow up and referral plans. medication usage, Demonstrated understanding of instructions, follow-up care, medications. 23:37 Patient left the ED. ld1 Signatures: Dispatcher [employer] EDMS Reed Landeros MD MD cha Martinez, Amelia as Dee Dee Maza RN RN Darlyn Barnett RN RN ld1 Janie Martinez RN RN bs2 Corrections: (The following items were deleted from the chart) 16:54 16:49 Chief complaint: EMS states: Worsening lethargy since feeding tube placement last hb week. originally called EMS for ride to [place] but was rerouted here. Appears sedated, speech slurred, slumped in wheelchair, unable to maintain conversation. Reported taking [place] for pain, hospice not yet set up. hb 16:54 16:49 Chief complaint: EMS states: Worsening lethargy since feeding tube placement last hb week. originally called EMS for ride to [place] but was rerouted here. Appears sedated, speech slurred, slumped in wheelchair, unable to maintain conversation. Reported taking [place] for pain, hospice not yet set up. hb 16:54 16:49 BP 127 / 77; Pulse 82bpm; Resp 16bpm; Pulse Ox 98% RA; Temp 98.9F; Pain 10/10; hb hb 16:54 16:49 Acuity: GABRIEL 2 hb hb 16:54 16:53 Allergies: ondansetron; hb hb 16:54 16:53 Allergies: clindamycin HCl; hb hb 17:01 16:49 Method Of Arrival: EMS: [facility] 17:47 16:53 PMHx: Thyroid CA; hb hb 22:04 21:30 CORONAVIRUS+MRDEREK.BRZ drawn and sent. bs2 EDMS
[2021-01-16 23:42] VITALS: BP 108/79; TEMP 97.5; O2SAT 98
[2021-01-16] MEDS ORDERED: CIPROFLOXACIN HCL 500 MG TAB ONE (23:44)
[2021-01-16] MEDS ORDERED: CEFTRIAXONE/SWI 1gm 1 GM/10 ML SYR ONE (23:44)
--- NOTE | 2021-01-17 12:40 | EKG ---
Test Date: 2021-01-16 Test Time: 21:26:00 Manager Of Network: MARGOTH MEASUREMENT RESULTS: Intervals: Rate: 76 PA: 132 QRSD: 72 QT: 418 QTc: 470 Aiken: P: 53 PA: 132 QRS: 27 T: 42 INTERPRETIVE STATEMENTS: Normal sinus rhythm Normal ECG No previous ECG available for comparison Electronically Signed On 01-17-21 12:37:32 CDT by Luther Rhoades
== END 2021-01-16 23:37 | disposition home or self-care (01) ==
LOC: ER 16:43
DX: K70.31 Alcoholic cirrhosis of liver with ascites (principal); N39.0 Urinary tract infection, site not specified; I10 Essential (primary) hypertension; Z88.1 Allergy status to other antibiotic agents; Z88.3 Allergy status to other anti-infective agents; Z88.5 Allergy status to narcotic agent; Z88.8 Allergy status to other drugs, medicaments and biological substances; Z20.822 Contact with and (suspected) exposure to COVID-19
CPT/HCPCS: 36415; 70450; 71045; 74177; 80048; 80076; 81003; 82140; 83690; 83735; 83880; 84484; 85025; 85610; 86850; 86900; 86901; 87077; 87086; 87088; 87186; 93005; 99284; J0696; J7030; Q9967; U0003

== ENCOUNTER 2021-02-07 13:18 | Emergency (ER) | payer SELFPAY ==
--- OUTSIDE RECORDS SUMMARY | 2021-02-07 13:21 | XMS REPORT | Continuity of Care Document ---
:1960 Author Organization [facility] t Address [address] [place] [address] Care Team Providers Name Role Phone [place] Attending Clinician Unavailable Betsy Gomez MD Attending [...] 2020-11-20 2020-11-20 Letter JAMES Titus [id number] 00:00:00 00:00:00 (Out) Nephrology [facility] [id number] [facility] [id number] 2020-08-14 2020-08-14 Telephone SHON Gomez [id number] 00:00:00 00:00:00 Norma [facility] [id number] [facility] [place] [id number] [facility] [id number] [facility] 2020-07-20 2020-07-20 Orders Doctor RHODES [id number] 00:00:00 00:00:00 Only Unassigned, DEE [id number] [place] [facility] [id number] Results This patient has no known results.
[2021-02-07 18:23] LABS: Absolute Lymphocytes (CBC) 2.2 K/uL (0.7-4.9); Basophils % 0.8 % (0-1.3); Hematocrit 34.3 % (36.0-45.0); Lymphocytes % 20.2 % (15.3-44.8); MPV 8.8 fL (7.6-11.3); RBC Red Blood Cell Count 3.18 M/uL (3.86-4.86)
[2021-02-07 18:42] LABS: Bilirubin Direct 0.3 mg/dL (0-0.2); Bilirubin Total 0.9 mg/dL (0.2-1.0); Potassium 4.3 mmol/L (3.5-5.1); Protein, Total 7.8 g/dL (6.4-8.2)
[2021-02-07] MEDS ORDERED: KETOROLAC 30 MG/ML INJ ONE (19:02)
--- NOTE | 2021-02-07 19:42 | ER ---
Nurse's Notes [facility] Name: Selina Hickey Age: 60 yrs Sex: Female : 1960 Arrival Date: 02/07/2021 Time: 13:20 Bed 12 Private MD: Diagnosis: Gout, unspecified;Olecranon bursitis, right elbow Presentation: 02/07 13:53 Chief complaint: Patient states: Pain to R elbow, R knee, and L foot for over 10 days. ll1 Chills, fever, and nausea since last night. No PCP. Had liver biopsy and cholecystectomy 3 weeks ago. Coronavirus screen: Client denies travel out of the [place] in the last 14 days. At this time, the client does not indicate any symptoms associated with coronavirus-19. Ebola Screen: Patient denies travel to an Ebola-affected area in the 21 days before illness onset. No symptoms or risks identified at this time. Initial Sepsis Screen: Does the patient meet any 2 criteria? No. Patient's initial sepsis screen is negative. Does the patient have a suspected source of infection? Yes: Bone or joint infection. Risk Assessment: Do you want to hurt yourself or someone else? Patient reports no desire to harm self or others. Onset of symptoms was January 30, 2021. 13:53 Method Of Arrival: Ambulatory ll1 13:53 Acuity: GABRIEL 3 ll1 Historical: - Allergies: 13:56 Clindamycin; ll1 13:56 Codeine; ll1 13:56 Vancomycin; ll1 13:56 Zofran; ll1 - PMHx: 13:56 Cirrhosis; Hepatits B\T\C; Hypertension; high cholesterol; ll1 - PSHx: 13:56 Cholecystectomy; liver biopsy; ll1 - Immunization history:: Client reports having NOT received the Covid vaccine. Flu vaccine is not up to date. - Social history:: Smoking status: Patient reports the use of cigarette tobacco products, smokes one pack cigarettes per day. Screenin:48 Abuse screen: Denies threats or abuse. Denies injuries from another. Nutritional iw screening: No deficits noted. Tuberculosis screening: No symptoms or risk factors identified. Fall Risk None identified. Assessment: 18:00 General: Appears uncomfortable, Behavior is. Pain: Complains of pain in abdomen, right iw foot and right leg. Neuro: Level of Consciousness is awake, alert, obeys commands, Oriented to person, place, time. 18:48 Reassessment: Patient appears in no apparent distress at this time. Patient and/or iw family updated on plan of care and expected duration. Pain level reassessed. Patient is alert, oriented x 3, equal unlabored respirations, skin warm/dry/pink. Vital Signs: 13:53 BP 126 / 102; Pulse 77; Resp 17; Temp 97.1; Pulse Ox 100% ; Weight 50.35 kg; Height 5 ll1 ft. 2 in. (157.48 cm); Pain 9/10; 17:49 BP 155 / 89; Pulse 85; Resp 17; Temp 98.4; Pulse Ox 100% on R/A; mh5 13:53 Body Mass Index 20.30 (50.35 kg, 157.48 cm) ll1 ED Course: 13:20 Patient arrived in ED. mr 13:56 Triage completed. ll1 13:57 Arm band placed on. ll1 17:27 Alix Tinsley, TAMIKA is Primary Nurse. iw 17:40 Ryan Luke PA is PHCP. jr8 17:40 Reed Landeros MD is Attending Physician. jr8 17:49 Patient has correct armband on for positive identification. Bed in low position. Call 5 light in reach. Pulse ox on. NIBP on. 18:11 Initial lab(s) drawn, by id, sent to lab. Missed attempt(s): 20 gauge in right wrist. 5 18:12 Uric Acid Sent. 5 18:12 Basic Metabolic Panel Sent. 5 18:12 CBC with Diff Sent. 5 18:12 Hepatic Function Sent. 5 18:13 Lipase Sent. 5 20:02 No provider procedures requiring assistance completed. Patient did not have IV access iw during this emergency room visit. Administered Medications: 18:30 Drug: Ketorolac 30 mg Route: IM; Site: left deltoid; iw 19:00 Follow up: Response: No adverse reaction iw 19:04 Not Given (Physician Discretion): Ketorolac 15 mg IVP once iw Outcome: 19:41 Discharge ordered by . jr8 20:02 Discharged to home ambulatory. iw 20:02 Condition: good 20:02 Discharge instructions given to patient, Instructed on discharge instructions, follow up and referral plans. medication usage, Demonstrated understanding of instructions, follow-up care, medications, Prescriptions given X 1. 20:04 Patient left the ED. Signatures: Linda Maldonado Irene, RN RN Ryan Luke PA PA jr8 Martinez, Maria [facility] Crystal Padron RN RN ll1 Corrections: (The following items were deleted from the chart) 18:17 18:12 Uric Acid drawn and sent. [facility] EDMA
--- NOTE | 2021-02-07 19:42 | EDPHYS ---
Physician Documentation [facility] Name: Selina Hickey Age: 60 yrs Sex: Female : 1960 Arrival Date: 02/07/2021 Time: 13:20 Bed 12 Private MD: ARNOLD Physician Reed Landeros HPI: 02/07 19:42 This 60 yrs old Female presents to ER via Ambulatory with complaints of Foot jr8 Pain, Knee Pain, Elbow Pain. 19:42 Severity of symptoms: At their worst the symptoms were moderate, in the emergency jr8 department the symptoms are unchanged. The patient has not experienced similar symptoms in the past. The patient has not recently seen a physician. Patient stated that she had a flareup of her gout in the left foot and great toe. Also had swelling that started yesterday to the right elbow with pain and warmness. Denies trauma to the elbow. Has been on colchicine at home.. Historical: - Allergies: 13:56 Clindamycin; ll1 13:56 Codeine; ll1 13:56 Vancomycin; ll1 13:56 Zofran; ll1 - PMHx: 13:56 Cirrhosis; Hepatits B\T\C; Hypertension; high cholesterol; ll1 - PSHx: 13:56 Cholecystectomy; liver biopsy; ll1 - Immunization history:: Client reports having NOT received the Covid vaccine. Flu vaccine is not up to date. - Social history:: Smoking status: Patient reports the use of cigarette tobacco products, smokes one pack cigarettes per day. ROS: 19:42 Eyes: Negative for injury, pain, redness, and discharge, ENT: Negative for injury, jr8 pain, and discharge, Neck: Negative for injury, pain, and swelling, Cardiovascular: Negative for chest pain, palpitations, and edema, Respiratory: Negative for shortness of breath, cough, wheezing, and pleuritic chest pain, Abdomen/GI: Negative for abdominal pain, nausea, vomiting, diarrhea, and constipation, Back: Negative for injury and pain, Skin: Negative for injury, rash, and discoloration, Neuro: Negative for headache, weakness, numbness, tingling, and seizure. 19:42 MS/extremity: Positive for pain, swelling, warmth, of the left foot and right arm. Exam: 19:42 Constitutional: This is a well developed, well nourished patient who is awake, alert, jr8 and in no acute distress. Cardiovascular: Regular rate and rhythm with a normal S1 and S2. No gallops, murmurs, or rubs. Normal PMI, no JVD. No pulse deficits. Respiratory: Lungs have equal breath sounds bilaterally, clear to auscultation and percussion. No rales, rhonchi or wheezes noted. No increased work of breathing, no retractions or nasal flaring. Skin: Warm, dry with normal turgor. Normal color with no rashes, no lesions, and no evidence of cellulitis. Neuro: Awake and alert, GCS 15, oriented to person, place, time, and situation. Cranial nerves II-XII grossly intact. Motor strength 5/5 in all extremities. Sensory grossly intact. Cerebellar exam normal. Normal gait. 19:42 Musculoskeletal/extremity: Extremities: grossly normal except: noted in the left foot: Patient has mild swelling with tenderness and warmth to the left MCP with mild tenderness to the anterior left ankle. Small amount of erythema noted to the left MCP., noted in the right arm: Patient has moderate swelling to the right olecranon process. Mild tenderness to palpation with warmth. No erythema or cellulitis noted. No abrasion or other external trauma signs., ROM: intact in all extremities, Circulation is intact in all extremities. Sensation intact. Vital Signs: 13:53 BP 126 / 102; Pulse 77; Resp 17; Temp 97.1; Pulse Ox 100% ; Weight 50.35 kg; Height 5 ll1 ft. 2 in. (157.48 cm); Pain 9/10; 17:49 BP 155 / 89; Pulse 85; Resp 17; Temp 98.4; Pulse Ox 100% on R/A; mh5 13:53 Body Mass Index 20.30 (50.35 kg, 157.48 cm) ll1 MDM: 17:40 Patient medically screened. [facility] 19:40 Data reviewed: vital signs, nurses notes, lab test result(s), and as a result, I will [facility] discharge patient. Data interpreted: Pulse oximetry: on room air is 100 %. Interpretation: normal. Counseling: I had a detailed discussion with the patient and/or guardian regarding: the historical points, exam findings, and any diagnostic results supporting the discharge/admit diagnosis, lab results, the need for outpatient follow up, a family practitioner, to return to the emergency department if symptoms worsen or persist or if there are any questions or concerns that arise at home. Response to treatment: the patient's symptoms have mildly improved after treatment. 02/07 17:37 Order name: Basic Metabolic Panel; Complete Time: 19:40 iw 02/07 17:37 Order name: CBC with Diff iw 02/07 17:37 Order name: Hepatic Function; Complete Time: 19:40 iw 02/07 17:37 Order name: Lipase; Complete Time: 19:40 iw 02/07 18:00 Order name: Uric Acid jr8 02/07 17:37 Order name: Labs collected and sent; Complete Time: 18:25 iw 02/07 18:15 Order name: Uric Acid; Complete Time: 19:40 EDMS Administered Medications: 18:30 Drug: Ketorolac 30 mg Route: IM; Site: left deltoid; iw 19:00 Follow up: Response: No adverse reaction iw 19:04 Not Given (Physician Discretion): Ketorolac 15 mg IVP once iw Disposition: 02/08 07:29 Co-signature as Attending Physician, Reed Landeros MD I agree with the assessment and reyna plan of care. Disposition Summary: 02/07/21 19:41 Discharge Ordered Location: Home jr8 Problem: new jr8 Symptoms: have improved jr8 Condition: Stable jr8 Diagnosis - Gout, unspecified jr8 - Olecranon bursitis, right elbow jr8 Followup: jr8 - With: Private Physician - When: 2 - 3 days - Reason: Recheck today's complaints, Continuance of care, Re-evaluation by your physician Discharge Instructions: - Discharge Summary Sheet jr8 - Bursitis jr8 - Gout jr8 Forms: - Medication Reconciliation Form jr8 - Thank You Letter jr8 - Antibiotic Education jr8 - Prescription Opioid Use jr8 Prescriptions: - Prednisone 20 mg Oral Tablet - take 3 tablets by ORAL route once daily for 5 days; 15 tablet; Refills: 0, jr8 Product Selection Permitted Signatures: Dispatcher [employer] Reed Licona MD MD cha Williams, Irene, RN RN Ryan Luke PA PA jr8 Crystal Padron RN RN ll1 Corrections: (The following items were deleted from the chart) 02/07 18:17 18:02 Uric Acid ordered. EDMS EDMS 20:01 17:37 IV Saline Lock ordered. iw iw
[2021-02-07 20:22] VITALS: O2SAT 100
[2021-02-07 20:22] LABS: Blood Morphology Comment NOTED (NOT SEEN); Macrocytosis 1+; Platelet Estimate ADEQ; White Blood Cell Scan OK (OK)
[2021-02-07 20:25] VITALS: BP 155/89; TEMP 98.4
== END 2021-02-07 20:04 | disposition home or self-care (01) ==
LOC: ER 13:18
DX: M70.21 Olecranon bursitis, right elbow (principal); M10.9 Gout, unspecified; I10 Essential (primary) hypertension; F17.210 Nicotine dependence, cigarettes, uncomplicated; Z88.3 Allergy status to other anti-infective agents; Z88.5 Allergy status to narcotic agent; Z88.8 Allergy status to other drugs, medicaments and biological substances
CPT/HCPCS: 36415; 80048; 80076; 83690; 84550; 85025; 96372; 99284

== ENCOUNTER 2021-10-03 12:56 | Emergency (ER) | payer SELFPAY ==
--- OUTSIDE RECORDS SUMMARY | 2021-10-03 13:00 | XMS REPORT | Continuity of Care Document ---
:1960 Author Organization [facility] t Address [address] [place] [address] Care Team Providers Name Role Phone RAYMUNDO, Kyler Primary Care Physician Unavailable RAYMUNDO, Kyler Attending Clinician Unavailable Kyler Fonseca PA-C Attending Clinician Dunia BHARDWAJ Attending Clinician Unavailable [place] TERRAZAS, R Attending Clinician BETSY GOMEZ Attending Clinician Unavailable Sebastien ENRIQUEZ Attending Clinician Delmy TOTH Attending Clinician Unavailable Delmy Toth MD Attending Clinician NAILA ALFARO Attending Clinician Unavailable [place] Attending Clinician Unavailable Betsy Gomez MD Attending Clinician Doctor Unassigned, Name Attending Clinician Unavailable Dunia BHARDWAJ Admitting Clinician Unavailable Payers Payer Name Policy Type Policy Number Effective Date Expiration Date S ource Problems Condition Condition Condition Status Onset Resolution Last Treating Co mments Source Name Details Category Date Date Treatment Clinician Date 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 Added automatic ally from request for surgery [id number] Hepatitis Hepatitis Disease Active Overview: Univers C virus C virus 08-03 Formattin ity o f infection infection 00:00: [place] of [place] without without 00 note Medical hepatic hepatic might be Branch coma, coma, different unspecifie unspecifie from the d d original. chronicity chronicity Added automatic ally from request for surgery [id number] NSAID NSAID Disease Active Overview: Univer s long-term long-term 08-03 Formattin i ty of use use 00:00: g of this [place] 00 note Medical might be Branch different from the original. 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 00:00: [place] multiple multiple 00 Medica l sites with sites with Br ritesh toparmidas tophus Immunizati Immunizati Disease Active 2017-07 U quitaers on on 08-03 ity of counseling counseling 00:00: [place] 00 [facility] [place] Hepatitis Hepatitis Disease Active 2017-07 Uni vers B core B core 08-03 ity of antibody antibody 00:00: [place] positive positive 00 Medica l Branch Blurry Blurry Disease Active 2017-07 Univers vision vision 08-03 ity of 00:00: [place] [facility] 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 08-03 ity of microscopi microscopi 00:00: [place] c c 00 Medical hematuria hematuria 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 Added automatic ally from request for surgery [id number] Special Special Disease Active Overview: Univ ers screening screening 02-09 Formattin i ty of for for 00:00: g of this [place] malignant malignant 00 note Medi kimber neoplasms, neoplasms, might be Branch colon colon different from the original. Added automatic ally from request for surgery [id number] Dysphagia, Dysphagia, Disease Active Overview : Univers oropharyng oropharyng 02-09 Formattin ity of eal phase eal phase 00:00: g of this [place] 00 note Medical might be Branch different from the original. Added automatic ally from request for surgery [id number] Gastroesop Gastroesop Disease Active Overview : Univers hageal hageal 02-09 Formattin ity of reflux reflux 00:00: g of this [place] disease, disease, 00 note Medica l esophagiti esophagiti might be Branch s presence s presence different not not from the specified specified original. Added automatic ally from request for surgery [id number] Hepatitis Hepatitis Disease Active Overview: Univers C C 01-08 Formattin ity of 00:00: g of this [place] 00 note Medical might be Branch different from the original. currently being treated at [facility] transferr ing to [facility] Allergies, Adverse Reactions, Alerts Allergy Allergy Status Severity Reaction(s) Onset Inactive Treating Comm ents Source Name Type Date Date Clinician Vancomyc Propensi Active Hives Univer s in ty to 03-18 ity of adverse 00:00: [place] reaction 00 Medical s Branch VANCOMYC DRUG Active Hives Univers IN INGREDI 03-18 ity of 00:00: [place] 00 Medical Branch Codeine Propensi Active Itching Univer s ty to 01-08 ity of adverse 00:00: [place] reaction 00 Medical s Branch CODEINE DRUG Active ITCHING Univers INGREDI 01-08 ity of 00:00: [place] 00 Medical Branch Social History Social Habit Start Date Stop Date Quantity Comments Source History of tobacco Cigarette Smoker University of use [place] [facility] History [facility] University o f Alcohol Frequency [place] [facility] History [facility] University o f Alcohol Std Drinks [place] [facility] History [facility] o f Alcohol Binge [place] [facility] Branch Exposure to Not sure University of SARS-CoV-2 (event) [place] [facility] Alcohol intake 2021-05-28 2021-05-28 .57 /d University of 00:00:00 00:00:00 [facility] Tobacco Comment 2018-03-18 2018-03-18 1 pack a day Univers ity of 00:00:00 00:00:00 [facility] Cigarettes smoked 2018-01-08 2018-01-08 Univers ity of current (pack per 00:00:00 00:00:00 [facility] ) - Reported Branch Cigarette 2018-01-08 2018-01-08 University of pack-years 00:00:00 00:00:00 [facility] Tobacco use and 2018-01-08 2018-01-08 Never used Universit y of exposure 00:00:00 00:00:00 [facility] Alcohol Comment 2018-01-08 2018-01-08 quit etoh when Unive rsity of 00:00:00 00:00:00 started [employer] [place] Med ical 6.9.18 Branch Sex [birth year] At [birth year] Universit y of 00:00:00 00:00:00 [facility] Smoking Status Start Date Stop Date Source Current every day smoker 2018-01-08 00:00:00 Uni versity of [facility] Medications Ordered Filled Start Stop Current Ordering Indication Dosage Frequency Signature Comments Components Source Medication Medication Date Date Medication? Clinician (SIG) Name Name predniSONE Yes [id number] 5mg Take 1 U nivers 5 mg tablet 3-02 tablet by ity of 00:00: mouth [place] 00 daily. Medical Branch PREDNISONE Yes [id number] TAKE 1 U nivers 5 mg tablet 1-14 TABLET BY ity of 00:00: MOUTH [place] 00 EVERY DAY Medical Branch PREDNISONE 2021-0 Yes [id number] TAKE 1 U nivers 5 mg tablet 1-14 TABLET BY ity of 00:00: MOUTH [place] 00 EVERY DAY Medical Branch PREDNISONE 2021-2021- No [id number] TAKE 1 Univers 5 mg tablet 1-14 03-02 TABLET BY it y of 00:00: 16:49 MOUTH [place] 00 :03 EVERY DAY Medical Branch predniSONE 2021-0 2021- Yes [id number] 40mg Take 2 Univers 20 mg 1-13 07-25 [id number] tablets by ity o f tablet 00:00: 05:59 mouth [place] 00 :00 daily for Medical 5 days. Branch dexamethaso No 10mg 10 mg, Uni vers ne 07-18 Oral, ity of (DECADRON 19:30: 18:54 ONCE, 1 [place] PHOSPHATE) 00 :00 dose, On Medic al injection Wed Branch 10 mg 07/18/21 at 1330, VIKAS ibuprofen No 600mg 600 mg, Uni vers (IBU) 07-18 Oral, ity of tablet 600 18:30: 18:00 ONCE, 1 [place] as mg 00 :00 dose, On Medical Wed Branch 07/18/21 at 1230, VIKAS HYDROcodone No 1{tbl} 1 tablet, Univers -acetaminop 07-18 Oral, ity of hen (NORCO) 18:30: 18:00 ONCE, 1 [place] 10-325 mg 00 :00 dose, On Medica l tablet 1 Wed Branch tablet 07/18/21 at 1230, Routine ibuprofen Yes [id number] 800mg Take 1 Univers 800 mg 1-12 [id number] tablet by ity of tablet 00:00: mouth [place] 00 every 6 Medical (six) Branch hours as needed for Pain (scale 4-6) for up to 24 doses. traMADoL 50 0 Yes [id number] 50mg Take 1 Univ ers mg tablet 1-12 tablet by ity o f 00:00: mouth [place] 00 every 8 Medical (eight) Branch hours as needed for Pain (scale 7-10) for up to 12 doses. Indication s: acute pain ibuprofen 0 Yes [id number] 800mg Take 1 Univers 800 mg 1-12 [id number] tablet by ity of tablet 00:00: mouth [place] 00 every 6 Medical (six) Branch hours as needed for Pain (scale 4-6) for up to 24 doses. traMADoL 50 2021-0 Yes [id number] 50mg Take 1 Univ ers mg tablet 1-12 tablet by ity o f 00:00: mouth [place] 00 every 8 Medical (eight) Branch hours as needed for Pain (scale 7-10) for up to 12 doses. Indication s: acute pain ibuprofen 0 Yes [id number] 800mg Take 1 Univers 800 mg 1-12 [id number] tablet by ity of tablet 00:00: mouth [place] 00 every 6 Medical (six) Branch hours as needed for Pain (scale 4-6) for up to 24 doses. traMADoL 50 Yes [id number] 50mg Take 1 Univ ers mg tablet 1-12 tablet by ity o f 00:00: mouth [place] 00 every 8 Medical (eight) Branch hours as needed for Pain (scale 7-10) for up to 12 doses. Indication s: acute pain allopurinoL 2020-07 Yes [id number] 100mg Take 1 Univers 100 mg 2-09 tablet by ity of tablet 00:00: mouth [place] 00 daily. Medical Branch allopurinoL 2020-07 Yes [id number] 100mg Take 1 Univers 100 mg 2-09 tablet by ity of tablet 00:00: mouth [place] 00 daily. Medical Branch allopurinoL 2020-07 Yes [id number] 100mg Take 1 Univers 100 mg 2-09 tablet by ity of tablet 00:00: mouth [place] 00 daily. Medical Branch allopurinoL 2020-07 Yes [id number] 100mg Take 1 Univers 100 mg 2-09 tablet by ity of tablet 00:00: mouth [place] 00 daily. Medical Branch allopurinoL 2020-07 Yes [id number] 100mg Take 1 Univers 100 mg 2-09 tablet by ity of tablet 00:00: mouth [place] 00 daily. Medical Branch allopurinoL 2020-07 Yes [id number] 100mg Take 1 Univers 100 mg 2-09 tablet by ity of tablet 00:00: mouth [place] 00 daily. Medical Branch traMADoL 50 2020-07 Yes [id number] 50mg Take 1 Univ ers mg tablet 1-17 tablet by ity o f 00:00: mouth [place] 00 every 6 Medical (six) Branch hours as needed for Pain (scale 4-6). Indication s: acute pain traMADoL 50 2020-07 Yes [id number] 50mg Take 1 Univ ers mg tablet 1-17 tablet by ity o f 00:00: mouth [place] 00 every 6 Medical (six) Branch hours as needed for Pain (scale 4-6). Indication s: acute pain traMADoL 50 2020-07 Yes [id number] 50mg Take 1 Univ ers mg tablet 1-17 tablet by ity o f 00:00: mouth [place] 00 every 6 Medical (six) Branch hours as needed for Pain (scale 4-6). Indication s: acute pain traMADoL 50 2020-07 Yes [id number] 50mg Take 1 Univ ers mg tablet 1-17 tablet by ity o f 00:00: mouth [place] 00 every 6 Medical (six) Branch hours as needed for Pain (scale 4-6). Indication s: acute pain traMADoL 50 2020-07 Yes [id number] 50mg Take 1 Univ ers mg tablet 1-17 tablet by ity o f 00:00: mouth [place] 00 every 6 Medical (six) Branch hours as needed for Pain (scale 4-6). Indication s: acute pain traMADoL 50 2020-07 Yes [id number] 50mg Take 1 Univ ers mg tablet 1-17 tablet by ity o f 00:00: mouth [place] 00 every 6 Medical (six) Branch hours as needed for Pain (scale 4-6). Indication s: acute pain traMADoL 50 2020-07 Yes [id number] 50mg Take 1 Univ ers mg tablet 1-17 tablet by ity o f 00:00: mouth [place] 00 every 6 Medical (six) Branch hours as needed for Pain (scale 4-6). Indication s: acute pain traMADoL 50 2020-07 Yes [id number] 50mg Take 1 Univ ers mg tablet 1-17 tablet by ity o f 00:00: mouth [place] 00 every 6 Medical (six) Branch hours as needed for Pain (scale 4-6). Indication s: acute pain traMADoL 50 2020-07 Yes [id number] 50mg Take 1 Univ ers mg tablet 1-17 tablet by ity o f 00:00: mouth [place] 00 every 6 Medical (six) Branch hours as needed for Pain (scale 4-6). Indication s: acute pain traMADoL 50 2020-07 Yes [id number] 50mg Take 1 Univ ers mg tablet 1-17 tablet by ity o f 00:00: mouth [place] 00 every 6 Medical (six) Branch hours as needed for Pain (scale 4-6). Indication s: acute pain traMADoL 50 2020-07 Yes [id number] 50mg Take 1 Univ ers mg tablet 1-17 tablet by ity o f 00:00: mouth [place] 00 every 6 Medical (six) Branch hours as needed for Pain (scale 4-6). Indication s: acute pain predniSONE 2020-07- No [id number] 5mg Take 1 Univers 5 mg tablet 07-15 tablet by it y of 00:00: 00:00 mouth [place] 00 :00 daily for Medical 60 days. Branch predniSONE 2020-2021- No [id number] 5mg Take 1 Univers 5 mg tablet 07-15 tablet by it y of 00:00: 05:59 mouth [place] 00 :00 daily for Medical 60 days. Branch predniSONE 2020-2021- No [id number] 5mg Take 1 Univers 5 mg tablet 07-15 tablet by it y of 00:00: 05:59 mouth [place] 00 :00 daily for Medical 60 days. Branch predniSONE 2020-2021- No [id number] 5mg Take 1 Univers 5 mg tablet 07-15 tablet by it y of 00:00: 05:59 mouth [place] 00 :00 daily for Medical 60 days. Branch predniSONE 2020-2021- No [id number] 5mg Take 1 Univers 5 mg tablet 07-15 tablet by it y of 00:00: 05:59 mouth [place] 00 :00 daily for Medical 60 days. Branch predniSONE 2020-2021- No [id number] 5mg Take 1 Univers 5 mg tablet 07-15 tablet by it y of 00:00: 05:59 mouth [place] 00 :00 daily for Medical 60 days. Branch predniSONE 2020-07- No [id number] 5mg Take 1 Univers 5 mg tablet 07-15 tablet by it y of 00:00: 05:59 mouth [place] 00 :00 daily for Medical 60 days. Branch predniSONE 2020-07- No [id number] 5mg Take 1 Univers 5 mg tablet 07-15 tablet by it y of 00:00: 05:59 mouth [place] 00 :00 daily for Medical 60 days. Branch colchicine 0 Yes .6mg Take 0.6 Uni vers (MITIGARE) 2-08 mg by ity of 0.6 mg Cap 00:00: mouth [place] 00 daily. Medical Branch colchicine 2020-0 Yes .6mg Take 0.6 Uni vers (MITIGARE) 2-08 mg by ity of 0.6 mg Cap 00:00: mouth [place] 00 daily. Medical Branch colchicine Yes .6mg Take 0.6 Uni vers (MITIGARE) 2-08 mg by ity of 0.6 mg Cap 00:00: mouth [place] 00 daily. Medical Branch colchicine 2021-0 Yes .6mg Take 0.6 Uni vers (MITIGARE) 2-08 mg by ity of 0.6 mg Cap 00:00: mouth [place] 00 daily. Medical Branch colchicine 0 Yes .6mg Take 0.6 Uni vers (MITIGARE) 2-08 mg by ity of 0.6 mg Cap 00:00: mouth [place] 00 daily. Medical Branch colchicine 2020-0 Yes .6mg Take 0.6 Uni vers (MITIGARE) 2-08 mg by ity of 0.6 mg Cap 00:00: mouth [place] 00 daily. Medical Branch colchicine 0 Yes .6mg Take 0.6 Uni vers (MITIGARE) 2-08 mg by ity of 0.6 mg Cap 00:00: mouth [place] 00 daily. Medical Branch colchicine Yes .6mg Take 0.6 Uni vers (MITIGARE) 2-08 mg by ity of 0.6 mg Cap 00:00: mouth [place] 00 daily. Medical Branch colchicine Yes .6mg Take 0.6 Uni vers (MITIGARE) 2-08 mg by ity of 0.6 mg Cap 00:00: mouth [place] 00 daily. Medical Branch colchicine Yes .6mg Take 0.6 Uni vers (MITIGARE) 2-08 mg by ity of 0.6 mg Cap 00:00: mouth [place] 00 daily. Medical Branch colchicine Yes .6mg Take 0.6 Uni vers (MITIGARE) 2-08 mg by ity of 0.6 mg Cap 00:00: mouth [place] 00 daily. Medical Branch allopurinoL 0 Yes [id number] 100mg Take 1 Univers 100 mg 2-01 tablet by ity of tablet 00:00: mouth [place] 00 daily. Medical Branch allopurinoL 0 Yes [id number] 100mg Take 1 Univers 100 mg 2-01 tablet by ity of tablet 00:00: mouth [place] 00 daily. Medical Branch allopurinoL 0 Yes [id number] 100mg Take 1 Univers 100 mg 2-01 tablet by ity of tablet 00:00: mouth [place] 00 daily. Medical Branch allopurinoL Yes [id number] 100mg Take 1 Univers 100 mg 2-01 tablet by ity of tablet 00:00: mouth [place] 00 daily. Medical Branch allopurinoL 2020-0 Yes [id number] 100mg Take 1 Univers 100 mg 2- tablet by ity of tablet 00:00: mouth [place] 00 daily. Medical Branch allopurinoL 0 2021- No [id number] 100mg Take 1 Univers 100 mg 2- 12-09 tablet by ity of tablet 00:00: 00:00 mouth [place] 00 :00 daily. Medical Branch naproxen 2020-0 Yes 500mg Take 500 Univ ers 500 mg 1-26 mg by ity of tablet 10:33: mouth at [place] [address] bedtime. Medical Branch naproxen 0 Yes 500mg Take 500 Univ ers 500 mg 1-26 mg by ity of tablet 10:33: mouth at [place] [address] bedtime. Medical Branch naproxen 0 Yes 500mg Take 500 Univ ers 500 mg 1-26 mg by ity of tablet 10:33: mouth at [place] [address] bedtime. Medical Branch naproxen 0 Yes 500mg Take 500 Univ ers 500 mg 1-26 mg by ity of tablet 10:33: mouth at [place] [address] bedtime. Medical Branch naproxen 0 Yes 500mg Take 500 Univ ers 500 mg 1-26 mg by ity of tablet 10:33: mouth at [place] [address] bedtime. Medical Branch naproxen 0 Yes 500mg Take 500 Univ ers 500 mg 1-26 mg by ity of tablet 10:33: mouth at [place] [address] bedtime. Medical Branch naproxen 0 Yes 500mg Take 500 Univ ers 500 mg 1-26 mg by ity of tablet 10:33: mouth at [place] [address] bedtime. Medical Branch naproxen 2020-0 Yes 500mg Take 500 Univ ers 500 mg 1-26 mg by ity of tablet 10:33: mouth at [place] [address] bedtime. Medical Branch naproxen 2020-0 Yes 500mg Take 500 Univ ers 500 mg 1-26 mg by ity of tablet 10:33: mouth at [place] [address] bedtime. Medical Branch naproxen 2020-0 Yes 500mg Take 500 Univ ers 500 mg 1-26 mg by ity of tablet 10:33: mouth at [place] [address] bedtime. Medical Branch naproxen 2020-0 Yes 500mg Take 500 Univ ers 500 mg 1-26 mg by ity of tablet 10:33: mouth at [place] [address] bedtime. Medical Branch colchicine 2019-07 Yes [id number] .6mg Take 0.6 Univers 0.6 mg Cap 2-29 mg by ity of 00:00: mouth [place] (two) Medical times Branch daily. colchicine 2019- Yes [id number] .6mg Take 0.6 Univers 0.6 mg Cap 2-29 mg by ity of 00:00: mouth [place] (two) Medical times Branch daily. colchicine 2019-07 Yes [id number] .6mg Take 0.6 Univers 0.6 mg Cap 2-29 mg by ity of 00:00: mouth [place] (two) Medical times Branch daily. colchicine 2019- Yes [id number] .6mg Take 0.6 Univers 0.6 mg Cap 2-29 mg by ity of 00:00: mouth [place] (two) Medical times Branch daily. colchicine 2019-07 Yes [id number] .6mg Take 0.6 Univers 0.6 mg Cap 2-29 mg by ity of 00:00: mouth [place] (two) Medical times Branch daily. colchicine 2019-07 Yes [id number] .6mg Take 0.6 Univers 0.6 mg Cap 2-29 mg by ity of 00:00: mouth [place] (two) Medical times Branch daily. colchicine 2019- Yes [id number] .6mg Take 0.6 Univers 0.6 mg Cap 2-29 mg by ity of 00:00: mouth [place] (two) Medical times Branch daily. colchicine 2019- Yes [id number] .6mg Take 0.6 Univers 0.6 mg Cap 2-29 mg by ity of 00:00: mouth [place] (two) Medical times Branch daily. colchicine 2019- Yes [id number] .6mg Take 0.6 Univers 0.6 mg Cap 2-29 mg by ity of 00:00: mouth [place] (two) Medical times Branch daily. colchicine 2019- Yes [id number] .6mg Take 0.6 Univers 0.6 mg Cap 2-29 mg by ity of 00:00: mouth [place] (two) Medical times Branch daily. colchicine 2019- Yes [id number] .6mg Take 0.6 Univers 0.6 mg Cap 2-29 mg by ity of 00:00: mouth [place] (two) Medical times Branch daily. ketorolac 2019- Yes [id number] 10mg Take 1 Un mag 10 mg 2-26 tablet by ity of tablet 00:00: mouth [place] 00 every 6 Medical (six) Branch hours as needed for Pain (scale 4-6) for up to 12 doses. ketorolac 2019-1 Yes 10mg Take 1 Un mag 10 mg 2-26 tablet by ity of tablet 00:00: mouth [place] 00 every 6 Medical (six) Branch hours as needed for Pain (scale 4-6) for up to 12 doses. ketorolac 2019- Yes 10mg Take 1 Un mag 10 mg 2-26 tablet by ity of tablet 00:00: mouth [place] 00 every 6 Medical (six) Branch hours as needed for Pain (scale 4-6) for up to 12 doses. ketorolac 2019-1 Yes 10mg Take 1 Un mag 10 mg 2-26 tablet by ity of tablet 00:00: mouth [place] 00 every 6 Medical (six) Branch hours as needed for Pain (scale 4-6) for up to 12 doses. ketorolac 2019-1 Yes 10mg Take 1 Un mag 10 mg 2-26 tablet by ity of tablet 00:00: mouth [place] 00 every 6 Medical (six) Branch hours as needed for Pain (scale 4-6) for up to 12 doses. ketorolac 2019-1 Yes 10mg Take 1 Un mag 10 mg 2-26 tablet by ity of tablet 00:00: mouth [place] 00 every 6 Medical (six) Branch hours as needed for Pain (scale 4-6) for up to 12 doses. ketorolac 2019-1 Yes 10mg Take 1 Un mag 10 mg 2-26 tablet by ity of tablet 00:00: mouth [place] 00 every 6 Medical (six) Branch hours as needed for Pain (scale 4-6) for up to 12 doses. ketorolac 2019-1 Yes [id number] 10mg Take 1 Un mag 10 mg 2-26 tablet by ity of tablet 00:00: mouth [place] 00 every 6 Medical (six) Branch hours as needed for Pain (scale 4-6) for up to 12 doses. ketorolac 2019-1 Yes [id number] 10mg Take 1 Un mag 10 mg 2-26 tablet by ity of tablet 00:00: mouth [place] 00 every 6 Medical (six) Branch hours as needed for Pain (scale 4-6) for up to 12 doses. ketorolac 2020-1 Yes [id number] 10mg Take 1 Un mag 10 mg 2-26 tablet by ity of tablet 00:00: mouth [place] 00 every 6 Medical (six) Branch hours as needed for Pain (scale 4-6) for up to 12 doses. ketorolac 2020-1 Yes [id number] 10mg Take 1 Un mag 10 mg 2-26 tablet by ity of tablet 00:00: mouth [place] 00 every 6 Medical (six) Branch hours as needed for Pain (scale 4-6) for up to 12 doses. levothyroxi 2020-0 Yes [id number] 25ug Take 1 Univers ne 25 mcg 9-28 tablet by ity o f tablet 00:00: mouth [place] 00 every Medical morning. Branch levothyroxi 2020-0 Yes [id number] 25ug Take 1 Univers ne 25 mcg 9-28 tablet by ity o f tablet 00:00: mouth [place] 00 every Medical morning. Branch levothyroxi 2020-0 Yes [id number] 25ug Take 1 Univers ne 25 mcg 9-28 tablet by ity o f tablet 00:00: mouth [place] 00 every Medical morning. Branch levothyroxi 2020-0 Yes [id number] 25ug Take 1 Univers ne 25 mcg 9-28 tablet by ity o f tablet 00:00: mouth [place] 00 every Medical morning. Brilliant levothyroxi 2020-0 Yes [id number] 25ug Take 1 Univers ne 25 mcg 9-28 tablet by ity o f tablet 00:00: mouth [place] 00 every Medical morning. Branch levothyroxi 2020-0 Yes [id number] 25ug Take 1 Univers ne 25 mcg 9-28 tablet by ity o f tablet 00:00: mouth [place] 00 every Medical morning. Branch levothyroxi 2020-0 Yes [id number] 25ug Take 1 Univers ne 25 mcg 9-28 tablet by ity o f tablet 00:00: mouth [place] 00 every Medical morning. Branch levothyroxi 2020-0 Yes [id number] 25ug Take 1 Univers ne 25 mcg 9-28 tablet by ity o f tablet 00:00: mouth [place] 00 every Medical morning. Branch levothyroxi 2020-0 Yes [id number] 25ug Take 1 Univers ne 25 mcg 9-28 tablet by ity o f tablet 00:00: mouth [place] 00 every Medical morning. Branch levothyroxi 2020-0 Yes [id number] 25ug Take 1 Univers ne 25 mcg 9-28 tablet by ity o f tablet 00:00: mouth [place] 00 every Medical morning. Branch levothyroxi 2020-0 Yes [id number] 25ug Take 1 Univers ne 25 mcg 9-28 tablet by ity o f tablet 00:00: mouth [place] 00 every Medical morning. Branch ergocalcife 2020-0 Yes [id number] Take Univ ers rol, 9-17 50,000 ity of vitamin d2, 13:57: Units by [place] (VITAMIN 34 mouth Medical D2) 50,000 weekly. Branch unit capsule ergocalcife 2020-0 Yes [id number] Take Univ ers rol, 9-17 50,000 ity of vitamin d2, 13:57: Units by [place] (VITAMIN 34 mouth Medical D2) 50,000 weekly. Branch unit capsule ergocalcife 2020-0 Yes [id number] Take Univ ers rol, 9-17 50,000 ity of vitamin d2, 13:57: Units by [place] (VITAMIN 34 mouth Medical D2) 50,000 weekly. Branch unit capsule ergocalcife 2020-0 Yes [id number] Take Univ ers rol, 9-17 50,000 ity of vitamin d2, 13:57: Units by [place] (VITAMIN 34 mouth Medical D2) 50,000 weekly. Branch unit capsule ergocalcife 2020-0 Yes [id number] Take Univ ers rol, 9-17 50,000 ity of vitamin d2, 13:57: Units by [place] (VITAMIN 34 mouth Medical D2) 50,000 weekly. Branch unit capsule ergocalcife 2020-0 Yes [id number] Take Univ ers rol, 9-17 50,000 ity of vitamin d2, 13:57: Units by [place] (VITAMIN 34 mouth Medical D2) 50,000 weekly. Branch unit capsule ergocalcife 2020-0 Yes [id number] Take Univ ers rol, 9-17 50,000 ity of vitamin d2, 13:57: Units by [place] (VITAMIN 34 mouth Medical D2) 50,000 weekly. Branch unit capsule ergocalcife 2020-0 Yes [id number] Take Univ ers rol, 9-17 50,000 ity of vitamin d2, 13:57: Units by [place] (VITAMIN 34 mouth Medical D2) 50,000 weekly. Branch unit capsule ergocalcife 2020-0 Yes [id number] Take Univ ers rol, 9-17 50,000 ity of vitamin d2, 13:57: Units by [place] (VITAMIN 34 mouth Medical D2) 50,000 weekly. Branch unit capsule ergocalcife 2020-0 Yes [id number] Take Univ ers rol, 9-17 50,000 ity of vitamin d2, 13:57: [place] (VITAMIN 34 mouth Medical D2) 50,000 weekly. Branch unit capsule ergocalcife 2020-0 Yes [id number] Take Univ ers rol, 9-17 50,000 ity of vitamin d2, 13:57: [place] (VITAMIN 34 mouth Medical D2) 50,000 weekly. Branch unit capsule Diclofenac 2020-0 Yes [id number] Apply to Univers Sodium 9-17 area(s) 2 ity of (VOLTAREN) 00:00: (two) [place] 1 % gel 00 times Medical daily. Branch Diclofenac 2020-0 Yes [id number] Apply to Univers Sodium 9-17 area(s) 2 ity of (VOLTAREN) 00:00: (two) [place] 1 % gel 00 times Medical daily. Branch Diclofenac 2020-0 Yes [id number] Apply to Univers Sodium 9-17 area(s) 2 ity of (VOLTAREN) 00:00: (two) [place] 1 % gel 00 times Medical daily. Branch Diclofenac 2020-0 Yes [id number] Apply to Univers Sodium 9-17 area(s) 2 ity of (VOLTAREN) 00:00: (two) [place] 1 % gel 00 times Medical daily. Branch Diclofenac 2020-0 Yes [id number] Apply to Univers Sodium 9-17 area(s) 2 ity of (VOLTAREN) 00:00: (two) [place] 1 % gel 00 times Medical daily. Branch Diclofenac 2020-0 Yes [id number] Apply to Univers Sodium 9-17 area(s) 2 ity of (VOLTAREN) 00:00: (two) [place] 1 % gel 00 times Medical daily. Branch Diclofenac 2020-0 Yes [id number] Apply to Univers Sodium 9-17 area(s) 2 ity of (VOLTAREN) 00:00: (two) [place] 1 % gel 00 times Medical daily. Branch Diclofenac 2020-0 Yes [id number] Apply to Univers Sodium 9-17 area(s) 2 ity of (VOLTAREN) 00:00: (two) [place] 1 % gel 00 times Medical daily. Branch Diclofenac 2020-0 Yes [id number] Apply to Univers Sodium 9-17 area(s) 2 ity of (VOLTAREN) 00:00: (two) [place] 1 % gel 00 times Medical daily. Branch Diclofenac 2020-0 Yes [id number] Apply to Univers Sodium 9-17 area(s) 2 ity of (VOLTAREN) 00:00: (two) [place] 1 % gel 00 times Medical daily. Branch Diclofenac 2020-0 Yes [id number] Apply to Univers Sodium 9-17 area(s) 2 ity of (VOLTAREN) 00:00: (two) [place] 1 % gel 00 times Medical daily. [facility]illiant atorvastati 2017-07 Yes [id number] 40mg Take 1 Univers n 40 mg 0-04 tablet by ity of tablet 00:00: mouth [place] 00 every Medical evening. [place]ant atorvastati 2017-07 Yes [id number] 40mg Take 1 Univers n 40 mg 0-04 tablet by ity of tablet 00:00: mouth [place] 00 every Medical evening. [place]illiant atorvastati 2017-07 Yes [id number] 40mg Take 1 Univers n 40 mg 0-04 tablet by ity of tablet 00:00: mouth [place] 00 every Medical evening. Brilliant atorvastati 2017-07 Yes [id number] 40mg Take 1 Univers n 40 mg 0-04 tablet by ity of tablet 00:00: mouth [place] 00 every Medical evening. Brilliant atorvastati 2017-07 Yes [id number] 40mg Take 1 Univers n 40 mg 0-04 tablet by ity of tablet 00:00: mouth [place] 00 every Medical evening. Brilliant atorvastati 2017-07 Yes [id number] 40mg Take 1 Univers n 40 mg 0-04 tablet by ity of tablet 00:00: mouth [place] 00 every Medical evening. Brilliant atorvastati 2017-07 Yes [id number] 40mg Take 1 Univers n 40 mg 0-04 tablet by ity of tablet 00:00: mouth [place] 00 every Medical evening. Brilliant atorvastati 2017-07 Yes [id number] 40mg Take 1 Univers n 40 mg 0-04 tablet by ity of tablet 00:00: mouth [place] 00 every Medical evening. [facility] 2017-07 Yes [id number] 40mg Take 1 Univers n 40 mg 0-04 tablet by ity of tablet 00:00: mouth [place] 00 every Medical evening. Branch atorvasta 2017-07 Yes [id number] 40mg Take 1 Univers n 40 mg 0-04 tablet by ity of tablet 00:00: mouth [place] 00 every Medical evening. Branch atorvasta 2017-07 Yes [id number] 40mg Take 1 Univers n 40 mg 0-04 tablet by ity of tablet 00:00: mouth [place] 00 every Medical evening. Branch Vital Signs Vital Name Observation Time Observation Value Comments Source Systolic blood 2021-07-18 18:59:20 135 mm[Hg] [facility] [place] Diastolic blood 2021-07-18 18:59:20 70 mm[Hg] [facility] Heart rate 2021-07-18 18:59:20 81 /min [facility] Respiratory rate 2021-07-18 18:59:20 16 /min [facility] Oxygen saturation in 2021-07-18 18:59:20 100 /min [facility] Arterial blood by [facility] Pulse oximetry [place]illi[place] Body temperature 2021-07-18 17:16:00 36.78 Mayra [facility] Body weight 2021-07-18 17:16:00 52.617 kg [facility] BMI 2021-07-18 17:16:00 21.22 kg/m2 [facility] Procedures Procedure Date / Time Performing Clinician Source Performed ED SPLINT APPLICATION 2021-07-18 18:51:50 Yana Bhardwaj [facility] XR ANKLE 3+ VW RIGHT 2021-07-18 17:50:00 Yana Bhardwaj [facility] XR FOOT 3+ VW RIGHT 2021-07-18 17:50:00 Yana Bhardwaj [facility] XR KNEE 3 VW RIGHT 2021-07-18 17:50:00 Yana Bhardwaj [facility] XR TIBIA FIBULA 2 VW 2021-07-18 17:50:00 Yana Bhardwaj ity [facility] CONSENT/REFUSAL FOR 2021-07-18 17:17:57 Doctor Unassigned, No Un [facility] DIAGNOSIS AND TREATMENT Name Medical Branch Encounters Start End Encounter Admission Attending Care Care Encounter Source Date/Time Date/Time Type Type Clinicians Facility Department ID 2021-09-13 2021-09-13 Outpatient Dunia FONSECA [facility] [id number] Univers 14:45:00 14:45:00 JACKIE [id number] zoe [facility] 2021-09-13 2021-09-13 Outpatient Dunia FONSECA [facility] [id number] Univers 14:45:00 14:45:00 JACKIE enriquez [facility] 2021-09-05 2021-09-05 [facility] [id number] Univers 00:00:00 00:00:00 Jackie WEBBPEC 350.1.13.10 [place] [id number] [address] [facility] 2021-08-23 2021-08-23 Outpatient Dunia FONSECA [facility] [id number] Univers 14:45:00 14:45:00 JACKIE enriquez [facility] 2021-08-07 2021-08-07 Rachel [facility] [id number] Univers 00:00:00 00:00:00 Jackie WEBBPEC 350.1.13.10 [place] [id number] [address] [facility] 2021-07-18 2021-07-18 Emergency X [place], INANNY ERT [id number] Univers 11:17:00 13:12:00 YANA enriquez [facility] 2021-07-18 2021-07-18 Emergency [place], TRAUMA [id number] Univers 11:17:00 13:12:00 Yana [place]que [place] 350.1.13.10 [place] [id number] [address] 2021-07-11 2021-07-11 Sarika Fonseca [facility] [id number] Univers 00:00:00 00:00:00 Jackie WEBBPEC 350.1.13.10 [place] [id number] [address] [facility] 2021-06-21 2021-06-21 Outpatient R [facility] [id number] Univers 10:15:00 10:15:00 [id number] ity of [facility] 2021-06-21 2021-06-21 [facility] [id number] Univers 10:15:00 10:15:00 [facility] 2021-[facility] 2021-06-21 Telephone [facility] [id number] Univers 00:00:00 00:00:00 Jackie ULLOA 350.1.13.10 [place] [id number] [address] [facility] 2021-06-14 2021-06-14 Nohelia Ward [facility] [id number] Univers 00:00:00 00:00:00 TRACEYPEC 350.1.13.10 [place] [id number] [address] [facility] 2021-06-13 2021-06-13 Out[facility] [id number] Univers 14:00:00 14:00:00 GELY enriquez [facility] 2021-06-11 2021-06-11 Telephone [facility] [id number] Univers 00:00:00 00:00:00 Gely HEALTH 350.1.13.10 it y of [place] 4.2.7.2.686 Edgar as BHAVIN?BLEA [id number] [address] MEDICAL OFFICE BUILDING 2021-06-08 2021-06-08 Telephone Navneet [facility] [id number] Univers 00:00:00 00:00:00 Gely Brock HEALTH 350.1.13.10 it y of [place] 4.2.7.2.686 [place] as BHAVIN?BLEA [id number] Ok taylor [address] MEDICAL OFFICE [facility] 2021-06-04 2021-06-04 Telephone [facility] [id number] Univers 00:00:00 00:00:00 Jackie Chávez MULTISPEC 350.1.13.10 [place] [id number] [facility] AND MARCELO [address] [place] [address] DIABETES CLINIC 2021-05-28 2021-05-28 Office [facility] [id number] Univers 14:55:29 15:30:46 Visit Gely Brock [facility] 350.1.13.10 it y of [place] 4.2.7.2.686 [place] as BHAVIN?BLEA [id number] Ok taylor [address] OFFICE [facility] 2021-05-23 2021-05-23 Outpatient R Edwin ALFARO [facility] [id number] Univers 16:09:19 16:09:19 ity of [facility] 2020-11-20 2020-11-20 Letter Pelham, JAMES [id number] 00:00:00 00:00:00 (Out) Nephrology Y HEALTH 350.1.13.10 CLINICS 4.2.7.2.686 [id number] [facility] 2020-08-14 2020-08-14 Telephone [facility] [id number] 00:00:00 00:00:00 Jose MULTISPEC 350.1.13.10 [place] IALTY 4.2.7.2.686 CENTER [id number] AND MARCLEO [facility] DIABETES CLINIC 2020-07-20 2020-07-20 Orders Doctor CARMELO [id number] [id number] 00:00:00 00:00:00 Only Unassigned, DEE 350.1.13.10 [place] [facility] 4.2.7.2.686 [id number] Results This patient has no known results.
[2021-10-03] MEDS ORDERED: ONDANSETRON 4 MG/2 ML VIAL ONE (13:14)
[2021-10-03] MEDS ORDERED: MORPHINE 4 MG/ML SYR ONE ×2 (13:14→16:05)
[2021-10-03] MEDS ORDERED: NA CHLORIDE 0.9% 1,000 ML ONE (13:14)
[2021-10-03 13:20] LABS: Urine Blood Negative (Negative); Urine Glucose Negative (Negative); Urine Protein Negative (Negative); Urine Specific Gravity <=1.005 (1.005-1.030)
[2021-10-03 13:36] LABS: Urine Bacteria 20-50 /HPF (<20); Urine RBC NONE SEEN /HPF (NONE SEEN)
[2021-10-03 13:56] LABS: Absolute Lymphocytes (CBC) 2.9 K/uL (0.7-4.9); Hematocrit 30.2 % (36.0-45.0); Lymphocytes % 39.8 % (15.3-44.8); MPV 7.9 fL (7.6-11.3); RBC Red Blood Cell Count 2.59 M/uL (3.86-4.86)
[2021-10-03 14:10] LABS: Albumin 2.9 g/dL (3.4-5.0); Bilirubin Total 3.6 mg/dL (0.2-1.0); Potassium 3.9 mmol/L (3.5-5.1); Protein, Total 6.6 g/dL (6.4-8.2)
--- NOTE | 2021-10-03 14:51 | RAD REPORT ---
EXAM DESCRIPTION: CT - Abdomen Pelvis W Contrast - 10/03/2021 2:28 pm CLINICAL HISTORY: Abdominal pain COMPARISON: 2020 TECHNIQUE: Computed axial tomography of the abdomen pelvis was obtained. 100 cc Isovue-300 was admin istered intravenously. Oral contrast was not requested which limits evaluation of bowel. All CT scans are performed using dose optimization technique as appropriate and may include automated exposure control or mA/KV adjustment according to patient size. FINDINGS: Cirrhotic fatty liver Cholecystectomy. Spleen, pancreas, adrenals are unremarkable. Cortical thinning involves the right kidney perhaps related to prior inflammation. There is prominent calcification involving the proximal left renal artery which appears to result in a high-grade steno sis. This could result in ischemia to left kidney. Small amount of ascites abdomen small to moderate amount of ascites pelvis There is no evidence of diverticulitis. Small to moderate umbilical hernia High-grade stenosis celiac artery IMPRESSION: Cirrhosis Small to moderate amount of ascites
[2021-10-03 15:36] LABS: Protime INR 1.43
[2021-10-03 15:44] LABS: Anisocytosis 1+; Blood Morphology Comment NOTED (NOT SEEN); Platelet Estimate DECR; White Blood Cell Scan OK (OK)
[2021-10-03 15:45] LABS: Poikilocytosis 2+
[2021-10-03] MEDS ORDERED: PANTOPRAZOLE 40 MG INJ ONE (16:05)
--- NOTE | 2021-10-03 16:44 | EDPHYS ---
Physician Documentation [facility] Name: Selina Hickey Age: 60 yrs Sex: Female : 1960 Arrival Date: 10/03/2021 Time: 12:57 Bed 19 Private MD: ED Physician Jose Juan Almaraz HPI: 10/03 15:52 This 60 yrs old Female presents to ER via Ambulatory with complaints of Pain All Over, kb Blood in Urine/Stool. 15:52 The patient complains of pain in the left flank and right flank. The pain does not kb radiate. Onset: The symptoms/episode began/occurred 1 month(s) ago. Modifying factors: The symptoms are alleviated by nothing. the symptoms are aggravated by nothing. Associated signs and symptoms: Pertinent positives: hematuria. Severity of pain: At its worst the pain was moderate in the emergency department the pain is unchanged. The patient has not experienced similar symptoms in the past. The patient has not recently seen a physician. Pt reports severe flank pain, abd pain, blood in stool and urine. States it started a month ago, but has gotten progressively worse. Could not tolerate the pain today. Historical: - Allergies: 13:05 Clindamycin; ll1 13:05 Codeine; ll1 13:05 Vancomycin; ll1 13:05 Zofran; ll1 - PMHx: 13:05 Cirrhosis; Hepatits B\\T\\C; High Cholesterol; Hypertension; ll1 - PSHx: 13:05 Cholecystectomy; liver biopsy; Tonsillectomy; arm/leg SX; "tubes tied"; ll1 - Immunization history:: Client reports receiving the 1st dose of the Covid vaccine. - Social history:: Smoking status: Patient reports the use of cigarette tobacco products, smokes one pack cigarettes per day. ROS: 15:51 Constitutional: Negative for fever, chills, and weight loss. kb 15:51 Abdomen/GI: Positive for abdominal pain, black/tarry stool. 15:51 Back: Positive for flank pain, bilaterally. 15:51 All other systems are negative. Exam: 15:51 Constitutional: This is a well developed, well nourished patient who is awake, alert, kb and in no acute distress. Head/Face: Normocephalic, atraumatic. ENT: Moist Mucous membranes Cardiovascular: Regular rate and rhythm with a normal S1 and S2. No gallops, murmurs, or rubs. No pulse deficits. Respiratory: Respirations even and unlabored. No increased work of breathing. Talking in full sentences Skin: Warm, dry with normal turgor. Normal color. MS/ Extremity: Pulses equal, no cyanosis. Neurovascular intact. Full, normal range of motion. Neuro: Awake and alert, GCS 15, oriented to person, place, time, and situation. Moves all extremities. Normal gait. Psych: Awake, alert, with orientation to person, place and time. Behavior, mood, and affect are within normal limits. 15:51 Abdomen/GI: Inspection: abdomen appears normal, Bowel sounds: normal, in all quadrants, Palpation: soft, in all quadrants, moderate abdominal tenderness, in all quadrants. 15:51 Back: CVA tenderness, that is moderate, is noted bilaterally. Vital Signs: 13:06 BP 135 / 93; Pulse 100; Resp 17; Pulse Ox 100% ; Weight 54.43 kg; Height 5 ft. 2 in. ll1 (157.48 cm); Pain 9/10; 13:53 BP 124 / 84; Pulse 89; Resp 18; Pulse Ox 98% on R/A; ph 15:19 BP 122 / 82; Pulse 76; Resp 16; Pulse Ox 97% on R/A; ph 16:25 BP 115 / 68; Pulse 78; Resp 16; Pulse Ox 98% on R/A; ph 17:56 BP 108 / 70; Pulse 72; Resp 18; Temp 97.8; Pulse Ox 98% on R/A; ph 13:06 Body Mass Index 21.95 (54.43 kg, 157.48 cm) ll1 MDM: 13:00 Patient medically screened. kb 15:50 Data reviewed: vital signs, nurses notes. Data interpreted: Pulse oximetry: on room air kb is 97 %. Interpretation: normal. 16:40 Counseling: I had a detailed discussion with the patient and/or guardian regarding: the kb historical points, exam findings, and any diagnostic results supporting the discharge/admit diagnosis, lab results, radiology results, the need to transfer to another facility, [facility] does not immediately have the required specialist. ED course: Transfer initiated to [facility] due to lack of GI coverage here. Dr Lizama (GI at [facility]) accepts pt for consult, Dr Murray (hospitalist at [facility]) accepts pt for transfer. . 10/03 13:05 Order name: CBC with Diff; Complete Time: 15:47 kb 10/03 13:05 Order name: CMP; Complete Time: 14:28 kb 10/03 13:05 Order name: Lipase; Complete Time: 14:28 kb 10/03 13:05 Order name: Urine Microscopic Only; Complete Time: 13:38 kb 10/03 13:20 Order name: Urine Dipstick-Ancillary; Complete Time: 13:21 EDMS 10/03 13:38 Order name: Urine Culture EDMS 10/03 13:05 Order name: CT Abd/Pelvis - IV Contrast Only; Complete Time: 14:54 kb 10/03 14:59 Order name: Protime (+inr); Complete Time: 15:37 kb 10/03 14:59 Order name: Ptt, Activated; Complete Time: 15:37 kb 10/03 15:34 Order name: COVID-19 SARS RT PCR (Document "Date of Onset" if Symptomatic); Complete ss Time: 16:36 10/03 15:45 Order name: CBC Smear Scan; Complete Time: 15:47 EDMS 10/03 13:05 Order name: IV Saline Lock; Complete Time: 13:52 kb 10/03 13:05 Order name: Labs collected and sent; Complete Time: 13:52 kb 10/03 13:05 Order name: Urine Dipstick-Ancillary (obtain specimen); Complete Time: 13:14 kb Administered Medications: 13:52 Drug: NS 0.9% 1000 ml Route: IV; Rate: 1 bolus; Site: right forearm; ph 15:30 Follow up: Response: No adverse reaction; IV Status: Completed infusion; IV Intake: ph 1000ml 13:52 Drug: Zofran (Ondansetron) 4 mg Route: IVP; Site: right forearm; ph 16:58 Follow up: Response: No adverse reaction ph 13:52 Drug: morphine 4 mg Route: IVP; Site: right forearm; ph 14:05 Follow up: Response: No adverse reaction; Pain is decreased; RASS: Alert and Calm (0) ph 16:09 Drug: morphine 4 mg Route: IVP; Site: right forearm; ph 16:58 Follow up: Response: No adverse reaction ph 16:51 Drug: ProTONIX (pantoprazole) 40 mg Route: IVP; Site: right forearm; ph 16:58 Follow up: Response: No adverse reaction ph Disposition: 10/04 13:48 Co-signature as Attending Physician, Jose Juan ROSALES was immediately available on-site ms3 in the Emergency Department for consultation in the care of the patient.. Disposition Summary: 10/03/21 16:43 Transfer Ordered Transfer Location: Other Acute Care Facility kb Reason: Higher level of care kb Condition: Stable kb Problem: new kb Symptoms: are unchanged kb Accepting Physician: Trevor(10/03/21 17:57) ph Diagnosis - GI Bleed/ Gastrointestinal hemorrhage, unspecified kb - Alcoholic cirrhosis of liver with ascites kb - Abnormal results of liver function studies kb Forms: - Medication Reconciliation Form kb - SBAR form kb Signatures: Dispatcher [employer] Valerie Franco, MK-C DEALER ACCOUNTS INVESTIGATOR-Caity Leiva RN Crystal Moreno ph, RN RN ll1 Jose Juan Almaraz DO DO ms3 Corrections: (The following items were deleted from the chart) 10/03 15:53 15:51 Abdomen/GI: Positive for abdominal pain, kb kb 17:57 16:43 Trevor kb ph
--- NOTE | 2021-10-03 16:44 | ER ---
Nurse's Notes [facility] Name: Selina Hickey Age: 60 yrs Sex: Female : 1960 Arrival Date: 10/03/2021 Time: 12:57 Bed 19 Private MD: Diagnosis: GI Bleed/ Gastrointestinal hemorrhage, unspecified;Alcoholic cirrhosis of liver with ascites;Abnormal results of liver function studies Presentation: 10/03 13:06 Chief complaint: Patient states: "My kidneys and my liver are shot". 5 days of abd ll1 pain, low back pain, blood in stool and urine. No known fever. Coronavirus screen: Vaccine status: Patient reports receiving the 1st dose of the Covid vaccine. Client denies travel out of the [place] in the last 14 days. fatigue, muscle pain, Client presents with at least one sign or symptom that may indicate coronavirus-19. Standard/surgical mask placed on the client. Ebola Screen: Patient denies travel to an Ebola-affected area in the 21 days before illness onset. Initial Sepsis Screen: Does the patient meet any 2 criteria? HR > 90 bpm. No. Patient's initial sepsis screen is negative. Does the patient have a suspected source of infection? Yes: Acute abdominal pain. Risk Assessment: Do you want to hurt yourself or someone else? Patient reports no desire to harm self or others. Onset of symptoms was September 28, 2021. 13:06 Method Of Arrival: Ambulatory [facility] 13:06 Acuity: GABRIEL 3 ll1 Triage Assessment: 13:09 General: Appears uncomfortable, ill, Behavior is calm, cooperative, appropriate for 3 age. Pain: Complains of pain in abdomen Quality of pain is described as aching, crampy. Neuro: No deficits noted. Cardiovascular: No deficits noted. Respiratory: No deficits noted. GI: Reports lower abdominal pain, upper abdominal pain. : Reports pain in bilateral in lower back bilateral low back pain and tenderness. Historical: - Allergies: 13:05 Clindamycin; ll1 13:05 Codeine; ll1 13:05 Vancomycin; ll1 13:05 Zofran; ll1 - PMHx: 13:05 Cirrhosis; Hepatits B\\T\\C; High Cholesterol; Hypertension; ll1 - PSHx: 13:05 Cholecystectomy; liver biopsy; Tonsillectomy; arm/leg SX; "tubes tied"; ll1 - Immunization history:: Client reports receiving the 1st dose of the Covid vaccine. - Social history:: Smoking status: Patient reports the use of cigarette tobacco products, smokes one pack cigarettes per day. Screenin:09 Abuse screen: Denies threats or abuse. Denies injuries from another. Nutritional ph screening: No deficits noted. Tuberculosis screening: No symptoms or risk factors identified. Fall Risk None identified. Assessment: 13:30 General: Appears in no apparent distress. uncomfortable, well groomed, Behavior is ph calm, cooperative, appropriate for age, Denies fever. Pain: Complains of pain in low back area and right low back. Pain: Complains of pain in left lower quadrant. Neuro: Level of Consciousness is awake, alert, obeys commands, Oriented to person, place, time, situation. Cardiovascular: Capillary refill < 3 seconds in bilateral fingers Patient's skin is warm and dry. Respiratory: Airway is patent Respiratory effort is even, unlabored. GI: Reports lower abdominal pain, bloody stool, nausea. : Reports pain in lower back. Derm: Skin is healthy with good turgor, Skin is jaundiced. Musculoskeletal: Circulation, motion, and sensation intact. Range of motion: intact in all extremities. 14:30 Reassessment: Patient appears in no apparent distress at this time. Patient and/or ph family updated on plan of care and expected duration. Pain level reassessed. Patient is alert, oriented x 3, equal unlabored respirations, skin warm/dry/pink. 15:39 Reassessment: Patient appears in no apparent distress at this time. Patient and/or ph family updated on plan of care and expected duration. Pain level reassessed. Patient is alert, oriented x 3, equal unlabored respirations, skin warm/dry/pink. Pt c/o abdominal pain, states that IV medication helped but has worn off. 16:30 Reassessment: Patient appears in no apparent distress at this time. Patient and/or ph family updated on plan of care and expected duration. Pain level reassessed. Patient is alert, oriented x 3, equal unlabored respirations, skin warm/dry/pink. 17:34 Reassessment: Patient appears in no apparent distress at this time. Patient and/or ph family updated on plan of care and expected duration. Pain level reassessed. Patient is alert, oriented x 3, equal unlabored respirations, skin warm/dry/pink. Report called to TAMIKA Fisher at [facility], transfer form signed by pt, awaiting EMS for transport. Vital Signs: 13:06 BP 135 / 93; Pulse 100; Resp 17; Pulse Ox 100% ; Weight 54.43 kg; Height 5 ft. 2 in. ll1 (157.48 cm); Pain 9/10; 13:53 BP 124 / 84; Pulse 89; Resp 18; Pulse Ox 98% on R/A; ph 15:19 BP 122 / 82; Pulse 76; Resp 16; Pulse Ox 97% on R/A; ph 16:25 BP 115 / 68; Pulse 78; Resp 16; Pulse Ox 98% on R/A; ph 17:56 BP 108 / 70; Pulse 72; Resp 18; Temp 97.8; Pulse Ox 98% on R/A; ph 13:06 Body Mass Index 21.95 (54.43 kg, 157.48 cm) ll1 ED Course: 12:57 Patient arrived in ED. ds1 13:00 Valerie De Leon FNP-C is PHCP. kb 13:00 Jose Juan Almaraz DO is Attending Physician. kb 13:04 Caity Ruby RN is Primary Nurse. ph 13:05 Arm band placed on Patient placed in an exam room, on a stretcher. ll1 13:09 Triage completed. ll1 13:09 Patient has correct armband on for positive identification. Bed in low position. Call ph light in reach. Side rails up X 1. Pulse ox on. NIBP on. Door closed. Noise minimized. 13:52 Initial lab(s) drawn, by wa, sent to lab. Inserted saline lock: 22 gauge in right ph forearm, using aseptic technique. Blood collected. 14:30 CT Abd/Pelvis - IV Contrast Only In Process Unspecified. EDMS 15:28 Protime (+inr) Sent. 5 15:29 Ptt, Activated Sent. 5 15:30 Served as a personal lines advisor during rectal exam. ph 15:38 No provider procedures requiring assistance completed. Patient transferred, IV remains ph in place. Administered Medications: 13:52 Drug: NS 0.9% 1000 ml Route: IV; Rate: 1 bolus; Site: right forearm; ph 15:30 Follow up: Response: No adverse reaction; IV Status: Completed infusion; IV Intake: ph 1000ml 13:52 Drug: Zofran (Ondansetron) 4 mg Route: IVP; Site: right forearm; ph 16:58 Follow up: Response: No adverse reaction ph 13:52 Drug: morphine 4 mg Route: IVP; Site: right forearm; ph 14:05 Follow up: Response: No adverse reaction; Pain is decreased; RASS: Alert and Calm (0) ph 16:09 Drug: morphine 4 mg Route: IVP; Site: right forearm; ph 16:58 Follow up: Response: No adverse reaction ph 16:51 Drug: ProTONIX (pantoprazole) 40 mg Route: IVP; Site: right forearm; ph 16:58 Follow up: Response: No adverse reaction ph Intake: 15:30 IV: 1000ml; Total: 1000ml. ph Outcome: 16:43 ER care complete, transfer ordered by . kb 17:56 Transferred by ground EMS [place]. to [facility], [facility] [place], Transfer form ph completed. X-rays sent w/ patient. 17:56 Condition: stable 17:56 Instructed on the need for transfer. 17:57 Patient left the ED. ph Signatures: Dispatcher [employer] EDIL Valerie De Leon, AGUILA FISH SALTER-Beryl Rdidle ds1 Caity Ruby, RN RN Berkley Priest [facility] Crystal Padron RN RN ll1 Corrections: (The following items were deleted from the chart) 13:10 13:06 Chief complaint: Patient states: "My kidneys and my liver" are shot. 5 days of ll1 abd pain, low back pain, blood in stool and urine. No known fever. ll1
[2021-10-03 18:28] VITALS: O2SAT 98
[2021-10-03 18:29] VITALS: BP 108/70; TEMP 97.8
== END 2021-10-03 17:57 ==
LOC: ER 12:56
DX: K70.31 Alcoholic cirrhosis of liver with ascites (principal); R94.5 Abnormal results of liver function studies; F17.210 Nicotine dependence, cigarettes, uncomplicated; I10 Essential (primary) hypertension; Z20.822 Contact with and (suspected) exposure to COVID-19; Z88.1 Allergy status to other antibiotic agents; Z88.5 Allergy status to narcotic agent; Z88.8 Allergy status to other drugs, medicaments and biological substances
CPT/HCPCS: 36415; 74177; 80053; 81003; 81015; 83690; 85025; 85610; 85730; 87086; 87088; C9113; J2405; J7030; Q9967; U0003

== ENCOUNTER 2021-10-31 13:38 | Inpatient (IN) | payer OTHER ==
--- OUTSIDE RECORDS SUMMARY | 2021-10-31 14:37 | XMS REPORT | Continuity of Care Document ---
:1960 Author Organization [facility] [place] [facility] t Address [address] [place] [address] Care Team Providers Name Role Phone RAYMUNDO, Kyler Primary Care Physician Unavailable Raymundo KENDRICK, Kyler Attending Clinician DARIUS Attending Clinician Unavailable Billie RIVERA Attending Clinician Unavailable PATRICE Attending Clinician Unavailable Kyler FONSECA Attending Clinician Unavailable Dunia BHARDWAJ Attending Clinician Unavailable Dunia Deluca Attending Clinician BETSY GOMEZ Attending Clinician Unavailable Sebastien ENRIQUEZ Attending Clinician Delmy TOTH Attending Clinician Unavailable Delmy Toth MD Attending Clinician NAILA ALFARO Attending Clinician Unavailable Malcolm Attending Clinician Unavailable Betsy Gomez MD Attending Clinician Doctor Unassigned, Name Attending Clinician Unavailable DARIUS Admitting Clinician Unavailable RODOLFO MARRERO Admitting Clinician Unavailable Dunia BHARDWAJ Admitting Clinician Unavailable NAILA ALFARO Admitting Clinician Unavailable Payers Payer Name Policy [...] Added automatic ally from request for surgery [id number] Hepatitis Hepatitis Disease Active Overview: Univers C virus C virus 08-03 Formattin ity o f infection infection 00:00: [place] without without 00 note Medical hepatic hepatic might be Branch coma, coma, different unspecifie unspecifie from the d d original. chronicity chronicity Added automatic ally from request for surgery [id number] NSAID NSAID Disease Active Overview: Univer s long-term long-term 08-03 Formattin i ty of use use 00:00: g of this [place] 00 note Medical might be Branch different from the original. 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 08-03 ity of microscopi microscopi 00:00: [place] c c 00 Medical hematuria hematuria Bran ch [facility] for medical terminology Disease Active 2017-07 Uni vers current current 08-03 ity of use of use of 00:00: [place] systemic systemic 00 Medica l steroids steroids Branch Chest pain Chest pain Disease Active U nivers 9-12 ity of 00:00: [place] 00 Medical Branch Elbow pain Elbow pain Disease Active U nivers 9-12 ity of 00:00: [place] 00 Medical Branch Abdominal Abdominal Disease Active Overview: Univers pain, pain, 02-09 Formattin ity of right right 00:00: g of this [place] upper upper 00 note Medical quadrant quadrant might be Bran ch different from the original. Added automatic ally from request for surgery [id number] Special Special Disease Active Overview: Univ ers screening screening 02-09 Formattin i ty of for for 00:00: g of this [place] malignant malignant 00 note Medi kimber neoplasms, neoplasms, might be Branch colon colon different from the original. Added automatic ally from request for surgery [id number] Dysphagia, Dysphagia, Disease Active Overview : Univers oropharyng oropharyng 02-09 Formattin ity of eal phase eal phase 00:00: [place] of this [place] 00 note Medical might be Branch different from the original. Added automatic ally from request for surgery [id number] Gastroesop Gastroesop Disease Active Overview : Univers hageal hageal 02-09 Formattin ity of reflux reflux 00:00: g of this [place] disease, disease, 00 note Medica l esophagiti esophagiti might be Branch s presence s presence different not not from the specified specified original. Added automatic ally from request for surgery [id number] Hepatitis Hepatitis Disease Active Overview: Univers C C 7-05 Formattin ity of 00:00: g of this [place] 00 note Medical might be Branch different from the original. currently being treated at [facility] clinic transferr ing to [facility] Allergies, Adverse Reactions, Alerts Allergy Allergy Status Severity Reaction(s) Onset Inactive Treating Comm ents Source Name Type Date Date Clinician FISH Allergy Active High Sob [facility] CONTAINI 4-01 NG 00:00: PRODUCTS 00 CLINDAMY Allergy Active 0 [facility]SL EDDIE 3 00:00: 00 ONDANSET Allergy Active [facility]SL GAUDENCIO HCL 10-04 00:00: 00 CODEINE Allergy Active Itching SLSL 3 00:00: 00 VANCOMYC Allergy Active High Hives 0 SLSL IN 10-03 00:00: 00 Vancomyc Propensi Active Hives Univer s in ty to 03-18 ity of adverse 00:00: [place] reaction 00 Medical s Branch VANCOMYC DRUG Active Hives Univers IN INGREDI 03-18 ity of 00:00: [place] 00 Medical Branch Codeine Propensi Active Itching Univer s ty to 01-08 ity of adverse 00:00: [place] reaction Medical s Branch CODEINE DRUG Active ITCHING Univers INGREDI 01-08 ity of 00:00: [place] 00 Medical [place] NO KNOWN Allergy Active SLSL ALLERGIE S Social History Social Habit Start Date Stop Date Quantity Comments Source History of tobacco Cigarette Smoker University of use [facility] o f Alcohol Std Drinks [place] Medical [place] History [facility] o f Alcohol Binge [facility] al [place] Exposure to Not sure University of SARS-CoV-2 (event) [facility] Alcohol intake 2021-10-15 2021-10-15 .57 /d University of 00:00:00 00:00:00 [facility] Tobacco Comment 2018-03-18 2018-03-18 1 pack a day Univers ity of 00:00:00 00:00:00 [facility] Cigarettes smoked 2018-01-08 2018-01-08 Univers ity of current (pack per 00:00:00 00:00:00 [facility] ) - Reported Branch Cigarette 2018-01-08 2018-01-08 University of pack-years 00:00:00 00:00:00 [facility] Tobacco use and 2018-01-08 2018-01-08 Never used Universit y of exposure 00:00:00 00:00:00 [facility] Alcohol Comment 2018-01-08 2018-01-08 quit etoh when Unive rsity of 00:00:00 00:00:00 started [employer] [place] Med ical 6.9.18 Branch Sex [birth year] At [birth year] Universit y of 00:00:00 00:00:00 [facility] Smoking Status Start Date Stop Date Source Current every day smoker 2018-01-08 00:00:00 Uni versity of [facility] Medications Ordered Filled Start Stop Current Ordering Indication Dosage Frequency Signature Comments Components Source Medication Medication Date Date Medication? Clinician (SIG) Name Name traMADoL 50mg 50 mg, Univer s (ULTRAM) 10-15 Oral, ity of tablet 50 18:45: 17:55 ONCE, 1 [place] mg 00 :00 dose, On Medical Mon Branch 10/15/21 at 1345, Routine iopamidol 2021- No [id number] 100mL 100 mL, Univers (ISOVUE 10-15 [id number] Intravenou ity of 370-500 mL) 16:50: 16:50 s, ONCE, 1 [place] injection 00 :00 dose, On Medica l 100 mL Mon Branch 10/15/21 at 1200, Routine predniSONE Yes [id number] 5mg Take 1 U nivers 5 mg tablet 3-02 tablet by ity of 00:00: mouth [place] 00 daily. Medical Branch predniSONE Yes [id number] 5mg Take 1 U nivers 5 mg tablet 3-02 tablet by ity of 00:00: mouth [place] 00 daily. Medical Branch predniSONE Yes [id number] 5mg Take 1 U nivers 5 mg tablet 3-02 tablet by ity of 00:00: mouth [place] 00 daily. Medical Branch PREDNISONE Yes [id number] TAKE 1 U nivers 5 mg tablet 1-14 TABLET BY ity of 00:00: MOUTH [place] 00 EVERY DAY Medical Branch PREDNISONE 2021-0 Yes [id number] TAKE 1 U nivers 5 mg tablet 1-14 TABLET BY ity of 00:00: MOUTH [place] 00 EVERY DAY Medical Branch PREDNISONE 2021-0 2021- No [id number] TAKE 1 Univers 5 mg tablet -14 -02 TABLET BY it y of 00:00: 16:49 MOUTH [place] 00 :03 EVERY DAY Medical Branch predniSONE 2021-0 2021- No [id number] 40mg Take 2 Univers 20 mg 07-19 [id number] tablets by ity o f tablet 00:00: 05:59 mouth [place] 00 :00 daily for Medical 5 days. Branch dexamethaso 2021-2021- No 10mg 10 mg, Uni vers ne 07-18 Oral, ity of (DECADRON 19:30: 18:54 ONCE, 1 [place] PHOSPHATE[place] 00 :00 dose, On Medic al injection Wed Branch 10 mg 07/18/21 at 1330, VIKAS ibuprofen 2021-2021- No 600mg 600 mg, Uni vers (IBU) 07-18 Oral, ity of tablet 600 18:30: 18:00 ONCE, 1 [place] mg 00 :00 dose, On Medical Wed Branch 07/18/21 at 1230, VIKAS HYDROcodone 2021-0 2021- No 1{tbl} 1 tablet, Univers -acetaminop 07-18 Oral, ity of hen (NORCO) 18:30: 18:00 ONCE, 1 [place] 10-325 mg 00 :00 dose, On Medica l tablet 1 Wed Branch tablet 07/18/21 at 1230, Routine ibuprofen 2021-0 Yes [id number] 800mg Take 1 Univers 800 mg 1-12 [id number] tablet by ity of tablet 00:00: mouth [...] Indication s: acute pain ibuprofen 0 Yes [id number] 800mg Take 1 Univers 800 mg 1-12 [id number] tablet by ity of tablet 00:00: mouth [...] 12 doses. Indication s: acute pain ibuprofen 2021-0 Yes [id number] 800mg Take 1 Univers 800 mg 1-12 [id number] tablet by ity of tablet 00:00: mouth [...] 12 doses. Indication s: acute pain ibuprofen 2021-0 Yes [id number] 800mg Take 1 Univers 800 mg 1-12 [id number] tablet by ity of tablet 00:00: mouth [...] 12 doses. Indication s: acute pain ibuprofen Yes [id number] 800mg Take 1 Univers 800 mg 1-12 [id number] tablet by ity of tablet 00:00: mouth [...] Indication s: acute pain allopurinoL 2020-07 Yes [id number] 100mg Take 1 Univers 100 mg 2-09 tablet by ity of tablet 00:00: mouth [place] 00 daily. Medical Branch allopurinoL 2020-07 Yes [id number] 100mg Take 1 Univers 100 mg 2-09 tablet by ity of tablet 00:00: mouth [place] 00 daily. Medical Branch allopurinoL 2020-07 Yes [id number] 100mg Take 1 Univers 100 mg 2-09 tablet by ity of tablet 00:00: mouth [place] 00 daily. Medical Branch allopurinoL 2020-07 Yes [id number] 100mg Take 1 Univers 100 mg 2-09 tablet by ity of tablet 00:00: mouth [place] 00 daily. Medical Branch allopurinoL 2020-07 Yes [id number] 100mg Take 1 Univers 100 mg 2-09 tablet by ity of tablet 00:00: mouth [place] 00 daily. Medical Branch allopurinoL 2020-07 Yes [id number] 100mg Take 1 Univers 100 mg 2-09 tablet by ity of tablet 00:00: mouth [place] 00 daily. Medical Branch allopurinoL 2020-07 Yes [id number] 100mg Take 1 Univers 100 mg 2-09 tablet by ity of tablet 00:00: mouth [place] 00 daily. Medical Branch allopurinoL 2020-07 Yes [id number] 100mg Take 1 Univers 100 mg 2-09 [...] 4-6). Indication s: acute pain traMADoL 50 2021-1 Yes [id number] 50mg Take 1 Univ ers [...] Indication s: acute pain predniSONE 2020-07- No [id number] 5mg Take 1 Univers 5 mg tablet 07-15 tablet by it y of 00:00: 00:00 mouth [place] 00 :00 daily for Medical 60 days. Branch predniSONE 2020-07- No [id number] 5mg Take 1 Univers 5 mg tablet 07-15 tablet by it y of 00:00: 05:59 mouth [place] 00 :00 daily for Medical 60 days. Branch predniSONE 2020-07- No [id number] 5mg Take 1 Univers 5 mg tablet 07-15 tablet by it y of 00:00: 05:59 mouth [place] 00 :00 daily for Medical 60 days. Branch predniSONE 2020-07- No [id number] 5mg Take 1 Univers 5 mg tablet 07-15 tablet by it y of 00:00: 05:59 mouth [place] 00 :00 daily for Medical 60 days. Branch predniSONE 2020-07- No [id number] 5mg Take 1 Univers 5 mg tablet 07-15 tablet by it y of 00:00: 05:59 mouth [place] 00 :00 daily for Medical 60 days. Branch predniSONE 2020-2021- No [id number] 5mg Take 1 Univers 5 mg tablet 07-15 tablet by it y of 00:00: 05:59 mouth [place] 00 :00 daily for Medical 60 days. Branch predniSONE 2020-2021- No [id number] 5mg Take 1 Univers 5 mg tablet 07-15 tablet by it y of 00:00: 05:59 mouth [place] 00 :00 daily for Medical 60 days. Branch predniSONE 2020-2021- No [id number] 5mg Take 1 Univers 5 mg tablet 07-15 tablet by it y of 00:00: 05:59 mouth [place] 00 :00 daily for Medical 60 days. Branch colchicine Yes .6mg Take 0.6 Uni [...] [place] 00 daily. Medical Branch allopurinoL Yes [id number] 100mg Take 1 Univers 100 mg 2-01 tablet by ity of tablet 00:00: mouth [place] 00 daily. Medical Branch allopurinoL 0 Yes [id number] 100mg Take 1 Univers 100 mg 2-01 tablet by ity of tablet 00:00: mouth [place] 00 daily. Medical Branch allopurinoL Yes [id number] 100mg Take 1 Univers 100 mg 2-01 tablet by ity of tablet 00:00: mouth [place] 00 daily. Medical Branch allopurinoL 0 Yes [id number] 100mg Take 1 Univers 100 mg 2-01 tablet by ity of tablet 00:00: mouth [place] 00 daily. Medical Branch allopurinoL 0 Yes [id number] 100mg Take 1 Univers 100 mg 2-01 tablet by ity of tablet 00:00: mouth [place] 00 daily. Medical Branch allopurinoL 2020- No [id number] 100mg Take 1 Univers 100 mg 2-01 12-09 tablet by ity of tablet 00:00: 00:00 mouth [place] 00 :00 daily. Medical Branch naproxen 0 Yes 500mg Take 500 Univ ers 500 mg 1-26 mg by ity of tablet 10:33: mouth at [place] [address] bedtime. Medical Branch naproxen 2020-0 Yes 500mg Take 500 Univ ers 500 mg 1-26 mg by ity of tablet 10:33: mouth at [place] [address] bedtime. Medical Branch naproxen 2020-0 Yes 500mg Take 500 Univ ers 500 mg 1-26 mg by ity of tablet 10:33: mouth at [place] [address] bedtime. Medical Branch naproxen 2020-0 Yes 500mg Take 500 Univ ers 500 mg 1-26 mg by ity of tablet 10:33: mouth at [place] [address] bedtime. Medical Branch naproxen 2020-0 Yes 500mg Take 500 Univ ers 500 mg 1-26 mg by ity of tablet 10:33: mouth at [place] [address] bedtime. Medical Branch naproxen 2020-0 Yes 500mg Take 500 Univ ers 500 mg 1-26 mg by ity of tablet 10:33: mouth at [place] [address] bedtime. Medical Branch naproxen 2020-0 Yes 500mg Take 500 Univ ers 500 mg 1-26 mg by ity of tablet 10:33: mouth at [place] [address] bedtime. Medical Branch naproxen 0 Yes 500mg Take 500 Univ ers 500 mg 1-26 mg by ity of tablet 10:33: mouth at [place] [address] bedtime. Medical Branch naproxen 2020-0 Yes 500mg Take 500 Univ ers 500 mg 1-26 mg by ity of tablet 10:33: mouth at [place] [address] bedtime. Medical Branch naproxen 2020-0 Yes 500mg Take 500 Univ ers 500 mg 1-26 mg by ity of tablet 10:33: mouth at [place] [address] bedtime. Medical Branch naproxen 2020-0 Yes 500mg Take 500 Univ ers 500 mg 1-26 mg by ity of tablet 10:33: mouth at [place] [address] bedtime. Medical Branch naproxen 2020-0 Yes 500mg Take 500 Univ ers 500 mg 1-26 mg by ity of tablet 10:33: mouth at [place] [address] bedtime. Medical Branch naproxen 2020-0 Yes 500mg Take 500 Univ ers 500 mg 1-26 mg by ity of tablet 10:33: mouth at [place] [address] bedtime. Medical Branch colchicine 2019-07 Yes [id number] .6mg Take 0.6 Univers 0.6 mg Cap 2-29 mg by ity of 00:00: mouth [place] (two) Medical times Branch daily. colchicine 2020- Yes [id number] .6mg Take 0.6 Univers 0.6 mg Cap 2-29 mg by ity of 00:00: mouth [place] (two) Medical times Branch daily. colchicine 2019- Yes [id number] .6mg Take 0.6 Univers 0.6 mg Cap 2-29 mg by ity of 00:00: mouth [place] (two) Medical times Branch daily. colchicine 2020- Yes [id number] .6mg Take 0.6 Univers 0.6 mg Cap 2-29 mg by ity of 00:00: mouth [place] (two) Medical times Branch daily. colchicine 2019- Yes [id number] .6mg Take 0.6 Univers 0.6 mg Cap 2-29 mg by ity of 00:00: mouth [place] (two) Medical times Branch daily. colchicine 2019- Yes [id number] .6mg Take 0.6 Univers 0.6 mg Cap 2-29 mg by ity of 00:00: mouth [place] (two) Medical times Branch daily. colchicine 2019- Yes [id number] .6mg Take 0.6 Univers 0.6 mg Cap 2-29 mg by ity of 00:00: mouth [place] (two) Medical times Branch daily. colchicine 2020- Yes [id number] .6mg Take 0.6 Univers 0.6 mg Cap 2-29 mg by ity of 00:00: mouth [place] (two) Medical times Branch daily. colchicine 2019- Yes [id number] .6mg Take 0.6 Univers 0.6 mg Cap 2-29 mg by ity of 00:00: mouth [place] (two) Medical times Branch daily. colchicine 2020- Yes [id number] .6mg Take 0.6 Univers 0.6 mg Cap 2-29 mg by ity of 00:00: mouth [place] (two) Medical times Branch daily. colchicine 2020- Yes [id number] .6mg Take 0.6 Univers 0.6 mg Cap 2-29 mg by ity of 00:00: mouth 2 [place] (two) Medical times Branch daily. colchicine 2020- Yes [id number] .6mg Take 0.6 Univers 0.6 mg Cap 2-29 mg by ity of 00:00: mouth 2 [place] 00 (two) Medical times Branch daily. colchicine 2019- Yes [id number] .6mg Take 0.6 Univers 0.6 mg Cap 2-29 mg by ity of 00:00: mouth 2 [place] 00 (two) Medical times Branch daily. ketorolac 2019-07 Yes [id number] 10mg Take 1 Un mag 10 mg 2-26 tablet by ity of tablet 00:00: mouth [place] 00 every 6 Medical (six) Branch hours as needed for Pain (scale 4-6) for up to 12 doses. ketorolac 2019-07 Yes [id number] 10mg Take 1 Un mag 10 mg 2-26 tablet by ity of tablet 00:00: mouth [place] 00 every 6 Medical (six) Branch hours as needed for Pain (scale 4-6) for up to 12 doses. ketorolac 2019-07 Yes [id number] 10mg Take 1 Un mag 10 mg 2-26 tablet by ity of tablet 00:00: mouth [place] 00 every 6 Medical (six) Branch hours as needed for Pain (scale 4-6) for up to 12 doses. ketorolac 2019-07 Yes [id number] 10mg Take 1 Un mag 10 mg 2-26 tablet by ity of tablet 00:00: mouth [place] 00 every 6 Medical (six) Branch hours as needed for Pain (scale 4-6) for up to 12 doses. ketorolac 2019-07 Yes [id number] 10mg Take 1 Un mag 10 mg 2-26 tablet by ity of tablet 00:00: mouth [place] 00 every 6 Medical (six) Branch hours as needed for Pain (scale 4-6) for up to 12 doses. ketorolac 2019-07 Yes [id number] 10mg Take 1 Un mag 10 mg 2-26 tablet by ity of tablet 00:00: mouth [place] 00 every 6 Medical (six) Branch hours as needed for Pain (scale 4-6) for up to 12 doses. ketorolac 2019-07 Yes [id number] 10mg Take 1 Un mag 10 mg 2-26 tablet by ity of tablet 00:00: mouth [place] 00 every 6 Medical (six) Branch hours as needed for Pain (scale 4-6) for up to 12 doses. ketorolac 2019-07 Yes [id number] 10mg Take 1 Un mag 10 mg 2-26 tablet by ity of tablet 00:00: mouth [place] 00 every 6 Medical (six) Branch hours as needed for Pain (scale 4-6) for up to 12 doses. ketorolac 2020-1 Yes [id number] 10mg Take 1 Un mag 10 mg 2-26 tablet by ity of tablet 00:00: mouth [place] 00 every 6 Medical (six) Branch hours as needed for Pain (scale 4-6) for up to 12 doses. ketorolac 2019-1 Yes [id number] 10mg Take 1 Un mag 10 mg 2-26 tablet by ity of tablet 00:00: mouth [place] 00 every 6 Medical (six) Branch hours as needed for Pain (scale 4-6) for up to 12 doses. ketorolac 2019- Yes [id number] 10mg Take 1 Un mag 10 mg 2-26 tablet by ity of tablet 00:00: mouth [place] 00 every 6 Medical (six) Branch hours as needed for Pain (scale 4-6) for up to 12 doses. ketorolac 2019-1 Yes [id number] 10mg Take 1 Un mag 10 mg 2-26 tablet by ity of tablet 00:00: mouth [place] 00 every 6 Medical (six) Branch hours as needed for Pain (scale 4-6) for up to 12 doses. ketorolac 2019-1 Yes [id number] 10mg Take 1 Un mag 10 mg 2-26 tablet by ity of tablet 00:00: mouth [place] 00 every 6 Medical (six) Branch hours as needed for Pain (scale 4-6) for up to 12 doses. levothyroxi 2020-0 Yes [id number] 25ug Take 1 Univers ne 25 mcg 9-28 tablet by ity o f tablet 00:00: mouth [place] 00 every Medical morning. Branch levothyroxi 2020-0 Yes [id number] 25ug Take 1 Univers ne 25 mcg 9-28 tablet by ity o f tablet 00:00: mouth [place] 00 every Medical morning. Branch levothyroxi 2020-0 Yes [id number] 25ug Take 1 Univers ne 25 mcg 9-28 tablet by ity o f tablet 00:00: mouth [place] 00 every Medical morning. Branch levothyroxi 2020-0 Yes [id number] 25ug Take 1 Univers ne 25 mcg 9-28 tablet by ity o f tablet 00:00: mouth [place] 00 every Medical morning. Branch levothyroxi 2020-0 Yes [id number] 25ug Take 1 Univers ne 25 mcg 9-28 tablet by ity o f tablet 00:00: mouth [place] 00 every Medical morning. Branch levothyroxi 2020-0 Yes [id number] 25ug Take 1 Univers ne 25 mcg 9-28 tablet by ity o f tablet 00:00: mouth [place] 00 every Medical morning. Branch levothyroxi 2020-0 Yes [id number] 25ug Take 1 Univers ne 25 mcg 9-28 tablet by ity o f tablet 00:00: mouth [place] 00 every Medical morning. Branch levothyroxi 2020-0 Yes [id number] 25ug Take 1 Univers ne 25 mcg 9-28 tablet by ity o f tablet 00:00: mouth [place] 00 every Medical morning. Branch levothyroxi 2020-0 Yes [id number] 25ug Take 1 Univers ne 25 mcg 9-28 tablet by ity o f tablet 00:00: mouth [place] 00 every Medical morning. [place] levothyroxi 2020-0 Yes [id number] 25ug Take 1 Univers ne 25 mcg 9-28 tablet by ity o f tablet 00:00: mouth [place] 00 every Medical morning. Branch levothyroxi 2020-0 Yes [id number] 25ug Take 1 Univers ne 25 mcg 9-28 tablet by ity o f tablet 00:00: mouth [place] 00 every Medical morning. [place] levothyroxi 2020-0 Yes [id number] 25ug Take 1 Univers ne 25 mcg 9-28 tablet by ity o f tablet 00:00: mouth [place] 00 every Medical morning. [place] levothyroxi 2020-0 Yes [id number] 25ug Take 1 Univers ne 25 mcg 9-28 tablet by ity o f tablet 00:00: mouth [place] 00 every Medical morning. [place] ergocalcife 2020-0 Yes [id number] Take Univ ers rol, 9- 50,000 ity of vitamin d2, 13:57: Units by [place] (VITAMIN 34 mouth Medical D2) 50,000 weekly. Branch unit capsule ergocalcife 2020-0 Yes [id number] Take Univ ers rol, 9- 50,000 ity of vitamin d2, 13:57: Units by [place] (VITAMIN 34 mouth Medical D2) 50,000 weekly. Branch unit capsule ergocalcife 2020-0 Yes [id number] Take Univ ers rol, 9-17 50,000 ity of vitamin d2, 13:57: Units by [place] (VITAMIN 34 mouth Medical D2) 50,000 weekly. Branch unit capsule ergocalcife 2020-0 Yes [id number] Take Univ ers rol, 9-17 50,000 ity of vitamin d2, 13:57: Units by [place] (VITAMIN 34 mouth Medical D2) 50,000 weekly. Branch unit capsule ergocalcife 2020-0 Yes [id number] Take Univ ers rol, 9-17 50,000 ity of vitamin d2, 13:57: Units by [place] (VITAMIN 34 mouth Medical D2) 50,000 weekly. Branch unit capsule ergocalcife 2020-0 Yes [id number] Take Univ ers rol, 9-17 50,000 ity of vitamin d2, 13:57: Units by [place] (VITAMIN 34 mouth Medical D2) 50,000 weekly. Branch unit capsule ergocalcife 2020-0 Yes [id number] Take Univ ers rol, 9-17 50,000 ity of vitamin d2, 13:57: Units by [place] (VITAMIN 34 mouth Medical D2) 50,000 weekly. Branch unit capsule ergocalcife 2020-0 Yes [id number] Take Univ ers rol, 9-17 50,000 ity of vitamin d2, 13:57: Units by [place] (VITAMIN 34 mouth Medical D2) 50,000 weekly. Branch unit capsule ergocalcife 2020-0 Yes [id number] Take Univ ers rol, 9-17 50,000 ity of vitamin d2, 13:57: Units by [place] (VITAMIN 34 mouth Medical D2) 50,000 weekly. Branch unit capsule ergocalcife 2020-0 Yes [id number] Take Univ ers rol, 9-17 50,000 ity of vitamin d2, 13:57: Units by [place] (VITAMIN 34 mouth Medical D2) 50,000 weekly. Branch unit capsule ergocalcife 2020-0 Yes [id number] Take Univ ers rol, 9-17 50,000 ity of vitamin d2, 13:57: Units by [place] (VITAMIN 34 mouth Medical D2) 50,000 weekly. Branch unit capsule ergocalcife 2020-0 Yes [id number] Take Univ ers rol, 9-17 50,000 ity of vitamin d2, 13:57: Units by [place] (VITAMIN 34 mouth Medical D2) 50,000 weekly. Branch unit capsule ergocalcife 2020-0 Yes [id number] Take Univ ers rol, 9-17 50,000 ity of vitamin d2, 13:57: Units by Cosmo weller (VITAMIN 34 mouth Medical D2) 50,000 weekly. Branch unit capsule Diclofenac 2020-0 Yes [id number] Apply to Univers Sodium 9-17 area(s) 2 ity of (VOLTAREN) 00:00: (two) [place] 1 % gel 00 times Medical daily. Branch Diclofenac 2020-0 Yes [id number] Apply to Univers Sodium 9-17 area(s) 2 ity of (VOLTAREN) 00:00: (two) [place] 1 % gel 00 times Medical daily. Branch Diclofenac 2020-0 Yes [id number] Apply to Univers Sodium 9-17 area(s) 2 ity of (VOLTAREN) 00:00: (two) [place] 1 % gel 00 times Medical daily. Branch Diclofenac 2020-0 Yes [id number] Apply to Univers Sodium 9-17 area(s) 2 ity of (VOLTAREN) 00:00: (two) [place] 1 % gel 00 times Medical daily. Branch Diclofenac 2020-0 Yes [id number] Apply to Univers Sodium 9-17 area(s) 2 ity of (VOLTAREN) 00:00: (two) [place] 1 % gel 00 times Medical daily. Branch Diclofenac 2020-0 Yes [id number] Apply to Univers Sodium 9-17 area(s) 2 ity of (VOLTAREN) 00:00: (two) [place] 1 % gel 00 times Medical daily. Branch Diclofenac 2020-0 Yes [id number] Apply to Univers Sodium 9-17 area(s) 2 ity of (VOLTAREN) 00:00: (two) [place] 1 % gel 00 times Medical daily. Branch Diclofenac 2020-0 Yes [id number] Apply to Univers Sodium 9-17 area(s) 2 ity of (VOLTAREN) 00:00: (two) [place] 1 % gel 00 times Medical daily. Branch Diclofenac 2020-0 Yes [id number] Apply to Univers Sodium 9-17 area(s) 2 ity of (VOLTAREN) 00:00: (two) [place] 1 % gel 00 times Medical daily. Branch Diclofenac 2020-0 Yes [id number] Apply to Univers Sodium 9-17 area(s) 2 ity of (VOLTAREN) 00:00: (two) [place] 1 % gel 00 times Medical daily. Branch Diclofenac 2020-0 Yes [id number] Apply to Univers Sodium 9-17 area(s) 2 ity of (VOLTAREN) 00:00: (two) [place] 1 % gel 00 times Medical daily. Branch Diclofenac 2020-0 Yes [id number] Apply to Univers Sodium 9-17 area(s) 2 ity of (VOLTAREN) 00:00: (two) [place] 1 % gel 00 times Medical daily. Branch Diclofenac 2020-0 Yes [id number] Apply to Univers Sodium 9-17 area(s) 2 ity of (VOLTAREN) 00:00: (two) [place] 1 % gel 00 times Medical daily. [place] atorvastati 2017-07 Yes [id number] 40mg Take 1 Univers n 40 mg 0-04 tablet by ity of tablet 00:00: mouth [place] 00 every Medical evening. [place] atorvastati 2017-07 Yes [id number] 40mg Take 1 Univers n 40 mg 0-04 tablet by ity of tablet 00:00: mouth [place] 00 every Medical evening. [place] atorvastati 2017-07 Yes [id number] 40mg Take 1 Univers n 40 mg 0-04 tablet by ity of tablet 00:00: mouth [place] 00 every Medical evening. [place] atorvastati 2017-07 Yes [id number] 40mg Take 1 Univers n 40 mg 0-04 tablet by ity of tablet 00:00: mouth [place] 00 every Medical evening. [place] atorvastati 2017-07 Yes [id number] 40mg Take 1 Univers n 40 mg 0-04 tablet by ity of tablet 00:00: mouth [place] 00 every Medical evening. [place] atorvastati 2017-07 Yes [id number] 40mg Take 1 Univers n 40 mg 0-04 tablet by ity of tablet 00:00: mouth [place] 00 every Medical evening. [place] atorvastati 2017-07 Yes [id number] 40mg Take 1 Univers n 40 mg 0-04 tablet by ity of tablet 00:00: mouth [place] 00 every Medical evening. [place] atorvastati 2017-07 Yes [id number] 40mg Take 1 Univers n 40 mg 0-04 tablet by ity of tablet 00:00: mouth [place] 00 every Medical evening. [place] atorvastati 2017-07 Yes [id number] 40mg Take 1 Univers n 40 mg 0-04 tablet by ity of tablet 00:00: mouth [place] 00 every Medical evening. [facility] 2017-07 Yes [id number] 40mg Take 1 Univers n 40 mg 0-04 tablet by ity of tablet 00:00: mouth [place] 00 every Medical evening. [facility] 2017-07 Yes [id number] 40mg Take 1 Univers n 40 mg 0-04 tablet by ity of tablet 00:00: mouth [place] 00 every Medical evening. [facility] 2017-07 Yes [id number] 40mg Take 1 Univers n 40 mg 0-04 tablet by ity of tablet 00:00: mouth [place] 00 every Medical evening. [place] [facility] 2017-07 Yes [id number] 40mg Take 1 Univers n 40 mg 0-04 tablet by ity of tablet 00:00: mouth [place] 00 every Medical evening. [place] Vital Signs Vital Name Observation Time Observation Value Comments Source Systolic blood 2021-10-15 17:56:00 108 mm[Hg] Univer sity of pressure [facility] Diastolic blood 2021-10-15 17:56:00 70 [facility]Hg[facility] 2021-10-15 17:56:00 99 /min [facility] Body temperature 2021-10-15 17:56:00 36.72 Mayra [facility] Respiratory rate 2021-10-15 17:56:00 18 /min [facility] Oxygen saturation in 2021-10-15 17:56:00 96 /min [facility] Arterial blood by [facility] Pulse oximetry [place] Body weight 2021-10-15 15:03:00 52.617 kg [facility] BMI 2021-10-15 15:03:00 21.22 kg/m2 [facility] HEIGHT 2021-10-06 08:30:00 157.5 cm WEIGHT 2021-10-06 08:30:00 56.901 kg HEIGHT 2021-10-03 19:55:00 157.5 cm WEIGHT 2021-10-03 19:55:00 56.9 kg HEIGHT 2021-10-06 08:30:00 157.5 cm WEIGHT 2021-10-06 08:30:00 56.901 kg HEIGHT 2021-10-03 19:55:00 157.5 cm WEIGHT 2021-10-03 19:55:00 56.9 kg Systolic blood 2021-07-18 18:59:20 135 mm[facility]Hg[facility] 2021-07-18 18:59:20 70 mm[Hg] [facility] 2021-07-18 18:59:20 81 /min [facility] Respiratory rate 2021-07-18 18:59:20 16 /min [facility] Oxygen saturation in 2021-07-18 18:59:20 100 /min [facility] Arterial blood by [facility] Pulse oximetry [place] Body temperature 2021-07-18 17:16:00 36.78 Mayra [facility] Body weight 2021-07-18 17:16:00 52.617 kg [facility] BMI 2021-07-18 17:16:00 21.22 kg/m2 [facility] Procedures Procedure Date / Time Performing Clinician Source Performed CT ABDOMEN PELVIS W 2021-10-15 16:55:53 Carmelo Ang [facility] CONTRAST [facility] XR CHEST 1 VW 2021-10-15 16:14:00 Carmelo Ang [facility] EKG-12 LEAD 2021-10-15 15:30:[address] [facility] URINALYSIS 2021-10-15 15:30:[address] [facility] URINE DRUG (IMMUNOASSAY) 2021-10-15 15:30:[address] [facility] DRUG Medical [facility] nch SCREEN W/O REFLEX LIPASE 2021-10-15 15:22:[address] [facility] AMMONIA, PLASMA 2021-10-15 15:22:[address] [facility] TROPONIN I 2021-10-15 15:22:[address] [facility] COMP. METABOLIC PANEL 2021-10-15 15:22:00 Carmelo Ang [facility] ([id number]) Medical [place] ETHANOL 2021-10-15 15:22:[address] [facility] CBC WITH DIFF 2021-10-15 15:22:00 Carmelo Ang o [facility] N-TERMINAL PRO-BNP 2021-10-15 15:22:00 Carmelo Ang [facility] CONSENT/REFUSAL FOR 2021-10-15 15:01:55 Doctor Unassigned, No Un iversity [facility] DIAGNOSIS AND TREATMENT Name [facility] ED SPLINT APPLICATION 2021-07-18 18:51:50 Yana Bhardwaj [facility] [place] [facility] XR ANKLE 3+ VW RIGHT 2021-07-18 17:50:00 Yana Bhardwaj [facility] FOOT 3+ VW RIGHT 2021-07-18 17:50:00 Yana Bhardwaj [facility] XR KNEE 3 VW RIGHT 2021-07-18 17:50:00 [facility] XR TIBIA FIBULA 2 VW 2021-07-18 17:50:00 Yana Bhardwaj [facility] CONSENT/REFUSAL FOR 2021-07-18 17:17:57 Doctor Unassigned, No [facility] [place] DIAGNOSIS AND TREATMENT Name [facility] Encounters Start End Encounter Admission Attending Care Care Encounter Source Date/Time Date/Time Type Type Clinicians Facility Department ID 2021-10-20 2021-10-20 Sarika Fonseca [facility] [id number] Univers 00:00:00 00:00:00 Jackie Chávez MULTISPEC 350.1.13.10 ity of IAY 4.2.7.2.686 [facility] [place] [id number] [facility] AND MARCELO 086 Branch DIABETES CLINIC 2021-10-15 2021-10-15 Emergency X DARIUS SDANNY ERT [id number] Univers 10:03:00 14:01:00 CARMELO enriquez [facility] 2021-10-15 2021-10-15 Emergency Darius, TRAU[place] 1.2.840.114 [id number] Univers 10:03:00 14:01:00 Carmelo MUNGUIA 350.1.13.10 [place] [id number] [facility] 014 Branch 2021-10-03 2021-10-06 Inpatient ER SHIEH, [facility] [id number] [facility] 19:13:00 13:10:00 [place] 2021-09-13 2021-09-13 Outpatient Dunia [facility] [id number] Univers 14:45:00 14:45:00 JACKIE [id number] [facility] 2021-09-13 2021-09-13 Outpatient Dunia [facility] [id number] Univers 14:45:00 14:45:00 [facility] 2021-09-05 2021-09-05 [facility] 1.2.840.114 [id number] Univers 00:00:00 00:00:00 Jackie ULLOA 350.1.13.10 ity of [place]2.686 [place] [id number] [address] DIABETES [facility] 2021-08-23 2021-08-23 Outpatient Dunia [facility] [id number] Univers 14:45:00 14:45:00 JACKIE [facility] 2021-08-07 2021-08-07 [facility] [id number] Univers 00:00:00 00:00:00 Jackie ULLOA 350.1.13.10 ity of [place] [id number] [address] DIABETES [facility] 2021-07-18 2021-07-18 Emergency X [place], SDMB ERT [id number] Univers 11:17:00 13:12:00 YANA ity [facility] 2021-07-18 2021-07-18 Emergency [place], TRAUMA 1..028.984 [id number] Univers 11:17:00 13:12:00 Yana [facility] 350.1.13.10 it [id number] [place] [address] Branch 2021-07-11 2021-07-11 [facility] 1.2.840.114 [id number] Univers 00:00:00 00:00:00 Jackie Chávez MULTISPEC 350.1.13.10 ity of [place]2.686 [place] C[place] [id number] [address] DIABETES CLINIC 2021-06-21 2021-06-21 Outpatient R [facility] [id number] Univers 10:15:00 10:15:00 [id number] ity [facility] 2021-06-21 2021-06-21 [facility] [id number] Univers 10:15:00 10:15:00 JOSE ity [facility] 2021-06-21 2021-06-21 Telephone [facility] [id number] Univers 00:00:00 00:00:00 Jackie Chávez MULTISPEC 350.1.13.10 ity [place]2.[place] [id number] [address] DIABETES [facility] 2021-06-14 2021-06-14 Nohelia Ward [facility] 1.2.840.114 [id number] Univers 00:00:00 00:00:00 MULTISPEC 350.1.13.10 it[place]2.[place] [id number] [address] DIABETES [facility] 2021-06-13 2021-06-13 [facility] [id number] Univers 14:00:00 14:00:00 GELY enri[facility] 2021-06-11 2021-06-11 Telephone [facility] 1.2.840.114 [id number] Univers 00:00:00 00:00:00 Gely L HEALTH 350.1.13.10 it y of [place] 4.2.7.2.686 Edgar as BHAVIN?BLEA [id number] Il taylor [address] MEDICAL OFFICE BUILDING 2021-06-08 2021-06-08 Telephone [facility] 1.2.840.114 [id number] Univers 00:00:00 00:00:00 Gely L HEALTH 350.1.13.10 it y of [place] 4.2.7.2.686 Edgar as BHAVIN?BLEA [id number] Il taylor [address] MEDICAL OFFICE [facility] 2021-06-04 2021-06-04 Telephone [facility] 1.2.396.561 [id number] Univers 00:00:00 00:00:00 Jackie Chávez MULTISPEC 350.1.13.10 ity of [facility] 4.2.7.2.686 [place] [facility] [id number] [facility] AND MARCELO [address] [place] [address] DIABETES CLINIC 2021-05-28 2021-05-28 Outpatient R NAVNEET [facility] [id number] Univers 15:00:00 15:30:46 GELY enriquez [facility] 2021-05-28 2021-05-28 Office [facility] 1.2.209.282 [id number] Univers 14:55:29 15:30:46 Visit [facility] 350.1.13.10 it y of [place] 4.2.7.2.686 Edgar as BHAVIN?BLEA [id number] Il taylor [address] OFFICE [facility] 2021-05-23 2021-05-23 Outpatient R Edwin ALFARO [facility] ERT [id number] Univers 16:09:19 16:09:19 itramila [facility] 2021-05-14 2021-05-14 Outpatient Dunia [facility] [id number] Univers 13:30:00 13:30:00 JACKIE [facility] 2021-04-19 2021-04-19 Outpatient Dunia [facility] [id number] Univers 15:15:00 15:15:00 JACKIE [facility] 2020-11-20 2020-11-20 Letter Malcolm, UNIVERSIT 1.2.840.114 [id number] 00:00:00 00:00:00 (Out) Nephrology HEALTH 350.1.13.10 CLINICS 4.2.7.2.686 [id number] 2020-08-14 2020-08-14 Telephone [facility] 1.2.200.270 [id number] 00:00:00 00:00:00 Jose MULTISPEC 350.1.13.10 [place]y IALTY 4.2.7.2.686 [place] [id number] AND MARCELO 086 DIABETES CLINIC 2020-07-20 2020-07-20 Orders Doctor CARMELO 1.2.840.114 [id number] 00:00:00 00:00:00 Only Unassigned, DEE 350.1.13.10 [place] [facility] 4.2.7.2.686 [id number] Results Test Description Test Time Test Comments Results Result Comments Source CBC WITH DIFF 2021-10-15 16:46:30 Test Item Value Reference Range Interpretation Comme nts WBC (test code = 6690-2) See_Comment [A utomated message] The system which Kalion nerated this result transmit ora reference range: 4.30 - 1 1.10 10*3/?L. The reference r marcial was not used to interpr et this result as normal/abnor mal. RBC (test code = 789-8) See_Comment L [Au tomated message] The system which ge nerated this result transmit ora reference range: 3.93 - 5 .25 10*6/?L. The reference r marcial was not used to interpr et this result as normal/abnor mal. HGB (test code = 718-7) 9.9 g/dL 11.6-15.0 L HCT (test code = 4544-3) 28.5 % 35.7-45.2 L MCV (test code = 787-2) 111.8 fL 80.6-95.5 H MCH (test code = 785-6) 38.8 pg 25.9-32.8 H MCHC (test code = 786-4) 34.7 g/dL 31.6-35.1 RDW-SD (test code = 36310-6) 72.0 fL 39.0-49.9 H RDW-CV (test code = 788-0) 17.3 % 12.0-15.5 H PLT (test code = 777-3) See_Comment L [Au tomated message] The system which Kalion nerated this result transmit ora reference range: 166 - 35 8 10*3/?L. The reference range was not used to interpret th is result as normal/abnormal . MPV (test code = 07964-4) 9.9 fL 9.5-12.9 IPF % (test code = 2.4 % 1.3-7.7 Platelet count measured by 7371215785) fluorescence me thod. NRBC/100 WBC (test code = See_Comment [ Automated message] The 8567327296) system which Kalion nerated this result transmit ora reference range: 0.0 - 10 .0 /100 WBCs. The reference r marcial was not used to interpr et this result as normal/abnor mal. NRBC x10^3 (test code = <0.01 See_Comment [Au tomated message] The 4244283864) system which Kalion nerated this result transmit ora reference range: 10*3/?L. The reference range was not u sed to interpret this result as normal/abnormal . GRAN MAT (NEUT) % (test code 43.6 % = 770-8) IMM GRAN % (test code = 0.90 % 4344249033) LYMPH % (test code = 736-9) 41.6 % MONO % (test code = 5905-5) 12.2 % EOS % (test code = 713-8) 0.8 % BASO % (test code = 706-2) 0.9 % GRAN MAT x10^3(ANC) (test 4.04 10*3/uL 1.88-7.09 code = 4928369413) IMM GRAN x10^3 (test code = 0.08 10*3/uL 0.00-0.06 H 9224041233) LYMPH x10^3 (test code = 3.84 10*3/uL 1.32-3.29 H 731-0) MONO x10^3 (test code = 1.13 10*3/uL 0.33-0.92 H 742-7) EOS x10^3 (test code = 0.07 10*3/uL 0.03-0.39 711-2) BASO x10^3 (test code = 0.08 10*3/uL 0.01-0.07 H 704-7) TARGET CELLS (test code = 2+ See_Comment A [ Automated message] The 49300-6) system which Kalion nerated this result transmit ora reference range: (none). The reference range was not u sed to interpret this result as normal/abnormal . Lab Interpretation (test Abnormal code = 37496-1) [facility] [id number] 16:07:17 Test Item Value Reference Interpretation Comments Range TROPONIN I (test 0.008 ng/mL See_Comment [Automated code = 5831685367) message] The system which generated this result transmitted reference range : <=0.034. The reference range was not used to interpret this result as normal/abnormal . LUZ (test code = Reference (Normal) LUZ) Range (defined by the 99th percentile reference limit): <= 0.034 ng/mL Note: Cardiac troponin begins to rise 3-4 hours after the onset of ischemia. Repeat in 4-6 hours if the sample was drawn within 3-4 hours of the onset of the symptom and found normal. Diagnosis of myocardial injury is made with acute changes in cTn concentrations with at least one serial sample above the 99th percentile upper reference limit (URL), taken together with the patient's clinical presentation. Biotin has been reported to cause a negative bias, interpret results relative to patient's use of biotin. Lab Interpretation Normal (test code = 57814-5) [facility] [id number] 16:07:17 Test Item Value Reference Range Interpretation Comments NT-proBNP (test code 68 pg/mL See_Comment [Autom ated = 3646144549) message] The system which generated this result transmitted reference range : <=125. The reference range was not used to interpret this result as normal/abnormal . LUZ (test code = LUZ) Biotin has been reported to cause a negative bias, interpret results relative to patient's use of biotin. Lab Interpretation Normal (test code = 89124-6) [facility] 15:54:14 Test Item Value Reference Range Interpretation Comments LIPASE (test code = 3535260361) 95 U/L 0-220 Lab Interpretation (test code = Normal 57554-3) [facility] 15:54:14 Test Item Value Reference Range Interpretation Comments ALCOHOL (test code = 241 mg/dL 5818068257) LUZ (test code = Toxic Greater than or LUZ) equal to 80 mg/dL. NOTE: Whole blood values are approximately 10% to 15% lower than serum and plasma. [facility]. METABOLIC PANEL (14237)2021-10-15 15:54:13 Test Item Value Reference Range Interpretation Comments NA (test code = 142 mmol/L 135-145 9223883815) K (test code = 4.5 mmol/L 3.5-5.0 Slight 4500584918) hemolysis CL (test code = 112 mmol/L 98-108 H 3678727274) CO2 TOTAL (test code 22 mmol/L 23-31 L = 7352337798) AGAP (test code = 2-16 7980211466) BUN (test code = 8 mg/dL 7-23 Slight 1159939001) hemolysis GLUCOSE (test code = 75 mg/dL 70-110 3121816512) CREATININE (test code 0.80 mg/dL 0.50-1.04 = 4605067067) TOTAL BILI (test code 2.3 mg/dL 0.1-1.1 H = 3585507476) CALCIUM (test code = 8.0 mg/dL 8.6-10.6 L 6549074939) T PROTEIN (test code 6.5 g/dL 6.3-8.2 = 7314229901) ALBUMIN (test code = 3.3 g/dL 3.5-5.0 L 6163591655) ALK PHOS (test code = 113 U/L 34-122 Slight 4432364614) hemolysis ALTv (test code = 91 U/L 5-35 H 1742-6) AST(SGOT) (test code 188 U/L 13-40 H Slight = 1932134245) hemolysis eGFR (test code = mL/min/1.73m2 4739658541) LUZ (test code = LUZ) Association of Glomerular Filtration Rate (GFR) and Staging of Kidney Disease* + -----+ --------+ +| GFR (mL/min/1.73 m2) ?| With Kidney Damage ?| ?Without Kidney Damage+ +------- +---- --+| ?>90 ?| ?Stage one ?| ? Normal ?+ ------+ ---------+--------- +| ?60-89 ?| ?Stage two ?| ? Decreased GFR ? + -----+ --------+ +| ?30-59 ?| ?Stage three ?| ? Stage three ? + -----+ --------+ +| ?15-29 ?| ?Stage four ? | ? Stage four ?+ ------+ ---------+--------- +| ?<15 (or dialysis) ? ?| ?Stage five ? | ? Stage five ?+ ------+ ---------+--------- + *Each stage assumes the associated GFR level has been in effect for at least three months. ?Stages 1 to 5, with or without kidney disease, indicate chronic kidney disease. Notes: Determination of stages one and two (with eGFR >59mL/min/1.73 m2) requires estimation of kidney damage for at least three months as defined by structural or functional abnormalities of the kidney, manifested by either:Pathological abnormalities or Markers of kidney damage (including abnormalities in the composition of the blood or urine or abnormalities in imaging tests). Lab Interpretation Abnormal (test code = 77306-3) [facility] CenterAMMONIA, [id number] 15:45:52 Test Item Value Reference Range Interpretation Comments AMMONIA (test code = 19 umol/L 9-33 Slight hemolysis 6856941025) Lab Interpretation (test Normal code = 43519-6) [facility] CenterCOMPREHENSIVE METABOLIC [id number] 07:24:44 Test Item Value Reference Range Interpretation Comments TOTAL PROTEIN 6.1 gm/dL 6.0-8.5 (BEAKER) (test code = 770) ALBUMIN (BEAKER) 3.0 g/dL 3.5-5.0 L (test code = 1145) ALKALINE PHOSPHATASE 127 U/L 30-115 H (BEAKER) (test code = 346) BILIRUBIN TOTAL 4.7 mg/dL 0.1-1.2 H (BEAKER) (test code = 377) SODIUM (BEAKER) (test 137 meq/L 135-148 code = 381) POTASSIUM (BEAKER) 4.0 meq/L 3.6-5.5 (test code = 379) CHLORIDE (BEAKER) 105 meq/L 98-106 (test code = 382) CO2 (BEAKER) (test 20 meq/L 20-29 code = 355) BLOOD UREA NITROGEN 11 mg/dL 10-26 (BEAKER) (test code = 354) CREATININE (BEAKER) 0.85 mg/dL 0.50-1.20 (test code = 358) GLUCOSE RANDOM 145 mg/dL 70-110 H (BEAKER) (test code = 652) CALCIUM (BEAKER) 7.9 mg/dL 8.5-10.5 L (test code = 697) AST (SGOT) (BEAKER) 319 U/L 5-40 H (test code = 353) ALT (SGPT) (BEAKER) 123 U/L 5-50 H (test code = 347) EGFR (BEAKER) (test 69 mL/min/1.73 ESTIMA ORA GFR IS code = 1092) sq m NOT ACCURATE CREATININE CLEARANCE IN PREDICTING GLOMERULAR FILTRATION RATE . ESTIMATED GFR I S NOT APPLICABLE FOR DIALYSIS PATIEN TS. Melting Furnace Skimmer ID - [id number] ID - [id number] ID - [id number] ID - [id number] ID - [id number] ID - [id number] ID - [id number] ID - [id number] ID - [id number] ID - [id number] ID - [id number] ID - [id number] ID - [id number] ID - [id number] ID - [id number] ID - [id number] slightly ictericCBC W/PLT COUNT & AUTO DIFFERENTIAL 2021-10-06 07:24:35 Test Item Value Reference Range Interpretation Comments WHITE BLOOD CELL COUNT (BEAKER) 4.7 K/ L 4.0-10.0 (test code = 775) RED BLOOD CELL COUNT (BEAKER) 2.33 M/ L 4.00-5.00 L (test code = 761) HEMOGLOBIN (BEAKER) (test code = 9.4 GM/DL 12.0-15.5 L 410) HEMATOCRIT (BEAKER) (test code = 26.8 % 36.0-46.0 L 411) MEAN CORPUSCULAR VOLUME (BEAKER) 115.0 fL 82.0-99.0 H (test code = 753) MEAN CORPUSCULAR HEMOGLOBIN 40.3 pg 27.0-33.0 H (BEAKER) (test code = 751) MEAN CORPUSCULAR HEMOGLOBIN CONC 35.1 GM/DL 32.0-36.0 (BEAKER) (test code = 752) RED CELL DISTRIBUTION WIDTH 16.9 % 12.0-15.0 H (BEAKER) (test code = 412) PLATELET COUNT (BEAKER) (test code 58 K/CU MM 150-430 L = 756) MEAN PLATELET VOLUME (BEAKER) 10.6 fL 6.0-11.5 (test code = 754) NUCLEATED RED BLOOD CELLS (BEAKER) 0 /100 WBC 0-0 (test code = 413) NEUTROPHILS RELATIVE PERCENT 87 % (BEAKER) (test code = 429) LYMPHOCYTES RELATIVE PERCENT 9 % (BEAKER) (test code = 430) MONOCYTES RELATIVE PERCENT 4 % (BEAKER) (test code = 431) EOSINOPHILS RELATIVE PERCENT 0 % (BEAKER) (test code = 432) BASOPHILS RELATIVE PERCENT 0 % (BEAKER) (test code = 437) NEUTROPHILS ABSOLUTE COUNT 4.02 K/ L 1.80-8.00 (BEAKER) (test code = 670) LYMPHOCYTES ABSOLUTE COUNT 0.42 K/ L 1.48-4.50 L (BEAKER) (test code = 414) MONOCYTES ABSOLUTE COUNT (BEAKER) 0.17 K/ L 0.00-1.30 (test code = 415) EOSINOPHILS ABSOLUTE COUNT 0.00 K/ L 0.00-0.50 (BEAKER) (test code = 416) BASOPHILS ABSOLUTE COUNT (BEAKER) 0.01 K/ L 0.00-0.20 (test code = 417) IMMATURE GRANULOCYTES-RELATIVE 1 % 0-0 H PERCENT (BEAKER) (test code = 2801) [id number] 07:18:14 Test Item Value Reference Range Interpretation Comments MAGNESIUM (BEAKER) (test code = 2.0 mg/dL 1.5-3.0 627) [employer] ID - [id number] ID - [id number] ID - [id number] ID - [id number]/S, ABDOMINAL, [id number] 11:11:00Labs to be ordered:->Body Fluid Culture (w/Gram Stain, C\\T\\S) Labs to be ordered:->Cell Count Reason for exam:->Diagnostic/Therapeutic [facility] : 1960 Sex: FFINAL REPORT TECHNIQUE: Grayscale ultrasound of the 4 abdominal quadrants.INDICATION: Evaluate for ascites. COMPARISON: None. DISCUSSION/IMPRESSION: Minimal fluid seen in the right lower quadrant. No other free fluid identified within the abdomen. Fluid volume too small for paracentesis. Recommend short interval reassessment for fluid accumulation. Signed: Santiago Tracy Verified Date/Time: 10/05/2021 11:11:37 Reading Location: [facility] Radiology Reading Room CBC W/PLT COUNT & AUTO [id number] 07:59:21 Test Item Value Reference Range Interpretation Comments WHITE BLOOD CELL COUNT (BEAKER) 5.0 K/ L 4.0-10.0 (test code = 775) RED BLOOD CELL COUNT (BEAKER) 1.94 M/ L 4.00-5.00 L (test code = 761) HEMOGLOBIN (BEAKER) (test code = 8.0 GM/DL 12.0-15.5 L 410) HEMATOCRIT (BEAKER) (test code = 23.1 % 36.0-46.0 L 411) MEAN CORPUSCULAR VOLUME (BEAKER) 119.1 fL 82.0-99.0 H (test code = 753) MEAN CORPUSCULAR HEMOGLOBIN 41.2 pg 27.0-33.0 H (BEAKER) (test code = 751) MEAN CORPUSCULAR HEMOGLOBIN CONC 34.6 GM/DL 32.0-36.0 (BEAKER) (test code = 752) RED CELL DISTRIBUTION WIDTH 16.8 % 12.0-15.0 H (BEAKER) (test code = 412) PLATELET COUNT (BEAKER) (test code 51 K/CU MM 150-430 L = 756) MEAN PLATELET VOLUME (BEAKER) 10.5 fL 6.0-11.5 (test code = 754) NUCLEATED RED BLOOD CELLS (BEAKER) 1 /100 WBC 0-0 H (test code = 413) (MANUAL DIFFERENTIAL)2021-10-05 07:59:21 Test Item Value Reference Range Interpretation Comments NEUTROPHILS - REL (DIFF) (BEAKER) 64 % (test code = 1359) LYMPHOCYTES - REL (DIFF) (BEAKER) 30 % (test code = 1360) MONOCYTES - REL (DIFF) (BEAKER) 1 % (test code = 1361) EOSINOPHILS - REL (DIFF) (BEAKER) 1 % (test code = 1362) METAMYELOCYTES-REL (DIFF) (BEAKER) 2 % 0-0 H (test code = 258) MYELOCYTES-REL (DIFF) (BEAKER) 2 % 0-0 H (test code = 1594) NEUTROPHILS - ABS (DIFF) (BEAKER) 3.20 K/ L 1.80-8.00 (test code = 1365) LYMPHOCYTES - ABS (DIFF) (BEAKER) 1.50 K/ L 1.48-4.50 (test code = 1366) MONOCYTES - ABS (DIFF) (BEAKER) 0.05 K/ L 0.00-1.30 (test code = 1367) EOSINOPHILS - ABS (DIFF) (BEAKER) 0.05 K/ L 0.00-0.50 (test code = 1368) METAMYELOCTYES - ABS (DIFF) 0.10 K/ L 0.00-0.00 H (BEAKER) (test code = 261) MYELOCYTES-ABS (DIFF) (BEAKER) 0.10 K/ L 0.00-0.00 H (test code = 1593) TOTAL COUNTED (BEAKER) (test code = 100 1351) WBC MORPHOLOGY (BEAKER) (test code Normal = 487) PLT MORPHOLOGY (BEAKER) (test code Normal = 486) RBC MORPHOLOGY (BEAKER) (test code Normal = 762) SARS-COV2/RT-PCR ([facility])2021-10-05 07:56:40 Test Item Value Reference Range Interpretation Comments SARS-COV2/RT-PCR Negative Negative The SARS-Co V-2 target (test code = nucleic acids a re not [id number]) detected in thi s specimen. Negative result s do not preclude SARS-C oV-2 infection and s hould not be used as the fide e basis for patient managem ent decisions. Nega tive results must be combine d with clinical observ ations, patient history , and epidemiological information. A false negativ e result may occur if a spec imen is improperly margo ected, transported or handled. This SARS CoV-2 test is a rapid, real-william e RT-PCR test intended for e qualitative detection of nu cleic acid from SARS-CoV-2 in a nasopharyngeal swab specimen collected from individuals suspected of CO VID-19 by their [facility] provider. This test has been authorized by FDA under an EUA for use by authorized laboratories. This test is only authorized for the duration of the declaration that circumstances exist justifying the authorization of emergency use of in vitro diagnostic tests for detection and/or diagnosis of COVID-19 under Section 564(b)(1) of the Federal Food, Drug and Cosmetic Act, 21 U.S.C. 360bbb- 3(b)(1), unless the authorization is terminated or revoked sooner. Fact Sheet for Healthcare Providers: https://www.[employer]/Documents/Xpert%20Xpress%20SARS%20CoV-2/Fact%20Sheets/3023802%20SARS-COV -2%20HEALTHCARE%20PROVIDERS%20FACT%20SHEET.pdf Fact Sheet for Healthcare Patients: https://www.[employer]/Documents/Xpert %20Xpress%20SARS%20CoV-2/Fact%20Sheets/3023801%95NXPL-UNE-9%20PATIENT%20FACT%20 SHEET.pdfCOMPREHENSIVE METABOLIC [id number] 06:22:26 Test Item Value Reference Range Interpretation Comments TOTAL PROTEIN 5.4 gm/dL 6.0-8.5 L (BEAKER) (test code = 770) ALBUMIN (BEAKER) 2.7 g/dL 3.5-5.0 L (test code = 1145) ALKALINE PHOSPHATASE 106 U/L 30-115 (BEAKER) (test code = 346) BILIRUBIN TOTAL 6.3 mg/dL 0.1-1.2 H (BEAKER) (test code = 377) SODIUM (BEAKER) (test 134 meq/L 135-148 L code = 381) POTASSIUM (BEAKER) 4.4 meq/L 3.6-5.5 (test code = 379) CHLORIDE (BEAKER) 101 meq/L 98-106 (test code = 382) CO2 (BEAKER) (test 22 meq/L 20-29 code = 355) BLOOD UREA NITROGEN 14 mg/dL 10-26 (BEAKER) (test code = 354) CREATININE (BEAKER) 0.94 mg/dL 0.50-1.20 (test code = 358) GLUCOSE RANDOM 146 mg/dL 70-110 H (BEAKER) (test code = 652) CALCIUM (BEAKER) 7.6 mg/dL 8.5-10.5 L (test code = 697) AST (SGOT) (BEAKER) 353 U/L 5-40 H (test code = 353) ALT (SGPT) (BEAKER) 115 U/L 5-50 H (test code = 347) EGFR (BEAKER) (test 61 mL/min/1.73 ESTIMA ORA GFR IS code = 1092) sq m NOT ACCURATE CREATININE CLEARANCE IN PREDICTING GLOMERULAR FILTRATION RATE . ESTIMATED GFR I S NOT APPLICABLE FOR DIALYSIS PATIEN TS. [employer] Skimmer ID - [id number] ID - [id number] ID - [id number] ID - [id number] ID - [id number] ID - [id number] ID - [id number] ID - [id number] ID - [id number] ID - [id number] ID - [id number] ID - [id number] ID - [id number] ID - [id number] ID - [id number] ID - [id number] moderately [id number] 06:21:51 Test Item Value Reference Range Interpretation Comments LIPASE (BEAKER) (test code = 749) 7 U/L 6-51 [employer] Skimmer ID - [id number] ID - [id number] ID - [id number] ID - [id number] moderately [id number] 06:20:49 Test Item Value Reference Range Interpretation Comments MAGNESIUM (BEAKER) (test code = 1.8 mg/dL 1.5-3.0 627) [employer] Skimmer ID - [id number] W/ REFLEX URINE [id number] 19:14:37 Test Item Value Reference Range Interpretation Comments COLOR (BEAKER) (test code = 470) [place] CLARITY (BEAKER) (test code = 469) Clear SPECIFIC GRAVITY UA (BEAKER) (test 1.025 1.001-1.035 code = 468) PH UA (BEAKER) (test code = 467) 6.0 5.0-8.0 PROTEIN UA (BEAKER) (test code = Trace Negative A 464) GLUCOSE UA (BEAKER) (test code = Negative Negative 365) KETONES UA (BEAKER) (test code = Negative Negative 371) BILIRUBIN UA (BEAKER) (test code = Positive Negative A 462) BLOOD UA (BEAKER) (test code = 461) Negative Negative NITRITE UA (BEAKER) (test code = Negative Negative 465) LEUKOCYTE ESTERASE UA (BEAKER) Negative Negative (test code = 466) UROBILINOGEN UA (BEAKER) (test code 2.0 mg/dL 0.2-1.0 H = 463) BACTERIA (BEAKER) (test code = 517) Rare RBC UA-MANUAL (BEAKER) (test code = <5 /HPF 1659) WBC UA-MANUAL (BEAKER) (test code = <5 /HPF 1661) SQUAMOUS EPITHELIAL MANUAL (BEAKER) <5 /HPF (test code = 1663) SOURCE(BEAKER) (test code = 2795) HEMOGLOBIN AND [id number] 13:36:11 Test Item Value Reference Range Interpretation Comments HEMOGLOBIN (BEAKER) (test code = 8.6 GM/DL 12.0-15.5 L 410) HEMATOCRIT (BEAKER) (test code = 25.6 % 36.0-46.0 L 411) VITAMIN B12 AND [id number] 10:56:11 Test Item Value Reference Range Interpretation Comments VITAMIN B12 (BEAKER) 1742 pg/mL 211-911 H (test code = 774) FOLATE (BEAKER) < ng/mL See_Comment L [Automated message] (test code = 362) The system which generated this result transmitted ref erence range: >=5.4. T he reference range was not used to interpr et this result as normal/abnormal . Mel[employer] Skimmer ID - ONJOANNEOperator ID - [id number] 10:48:06 Test Item Value Reference Range Interpretation Comments FERRITIN (BEAKER) (test code = 833.30 ng/mL 10.00-291.00 H 361) Mel[employer] Skimmer ID - DLEIRON, TIBC, % SAT. (WITHOUT FERRITIN)2021-10-04 10:21:22 Test Item Value Reference Range Interpretation Comments IRON (BEAKER) (test code = 547) 191.0 ug/dL 45.0-170.0 H TOTAL IRON BINDING CAPACITY 178 ug/dL 250-550 L (BEAKER) (test code = 769) IRON % SATURATION (2) (BEAKER) 107 % 20-55 H (test code = 2590) Mel[employer] Skimmer ID - ONJOANNEOperator ID - ONYINYEHEMOGLOBIN AND [id number] 07:30:10 Test Item Value Reference Range Interpretation Comments HEMOGLOBIN (BEAKER) (test code = 8.6 GM/DL 12.0-15.5 L 410) HEMATOCRIT (BEAKER) (test code = 25.6 % 36.0-46.0 L 411) TROPONIN [id number] 05:32:48 Test Item Value Reference Range Interpretation Comments TROPONIN I (BEAKER) (test code = 397) < ng/mL 0.00-0.15 Troponin I (TnI) levels must be interpreted in the context of the presenting symptoms and the clinical findings. Elevated TnI levels indicate myocardial damage, but are not specific for ischemic heart disease. Elevated TnI levels are seen in patients with other cardiac conditions (including myocarditis and congestive heart failure), and slight TnI elevations occur in patients with other conditions, including sepsis, renal failure, acidosis, acute neurological disease, and persistent tachyarrhythmia.Melting [employer] Skimmer ID - [id number] AND [id number] 05:18:38 Test Item Value Reference Range Interpretation Comments HEMOGLOBIN (BEAKER) (test code = 9.6 GM/DL 12.0-15.5 L 410) HEMATOCRIT (BEAKER) (test code = 27.7 % 36.0-46.0 L 411) COMPREHENSIVE METABOLIC [id number] 00:21:18 Test Item Value Reference Range Interpretation Comments TOTAL PROTEIN 6.1 gm/dL 6.0-8.5 (BEAKER) (test code = 770) ALBUMIN (BEAKER) 3.0 g/dL 3.5-5.0 L (test code = 1145) ALKALINE PHOSPHATASE 124 U/L 30-115 H (BEAKER) (test code = 346) BILIRUBIN TOTAL 4.3 mg/dL 0.1-1.2 H (BEAKER) (test code = 377) SODIUM (BEAKER) (test 138 meq/L 135-148 code = 381) POTASSIUM (BEAKER) 4.3 meq/L 3.6-5.5 (test code = 379) CHLORIDE (BEAKER) 107 meq/L 98-106 H (test code = 382) CO2 (BEAKER) (test 18 meq/L 20-29 L code = 355) BLOOD UREA NITROGEN 9 mg/dL 10-26 L (BEAKER) (test code = 354) CREATININE (BEAKER) 0.74 mg/dL 0.50-1.20 (test code = 358) GLUCOSE RANDOM 86 mg/dL 70-110 (BEAKER) (test code = 652) CALCIUM (BEAKER) 7.7 mg/dL 8.5-10.5 L (test code = 697) AST (SGOT) (BEAKER) 375 U/L 5-40 H (test code = 353) ALT (SGPT) (BEAKER) 123 U/L 5-50 H (test code = 347) EGFR (BEAKER) (test 81 mL/min/1.73 ESTIMA ORA GFR IS code = 1092) sq m NOT ACCURATE CREATININE CLEARANCE IN PREDICTING GLOMERULAR FILTRATION RATE . ESTIMATED GFR I S NOT APPLICABLE FOR DIALYSIS PATIEN TS. Melting [employer] Skimmer ID - [id number] ID - [id number] ID - [id number] ID - [id number] ID - [id number] ID - [id number] ID - [id number] ID - LUCJQ303Jqzebypz ID - [id number] ID - NKZQN549Rtxsnquy ID - OOTPL818Uguzlqem ID - [id number] ID - [id number] ID - ZUBKZ497Jrkhoyqq ID - VZIUT391Zqgxvywr ID - NSUVAGIYAOperator ID - NSUVAGIYAOperator ID - NSUVAGIYAOperator ID - NSUVAGIYAOperator ID - NSUVAGIYAOperator ID - NSUVAGIYAOperator ID - NSUVAGIYAOperator ID -NSUVAGIYAOperator ID - NSUVAGIYAOperator ID - NSUVAGIYAOperator ID - NSUVAGIYAOperator ID - NSUVAGIYAOperator ID - NSUVAGIYAOperator ID - NSUVAGIYAOperator ID - NSUVAGIYAOperator ID - NSUVAGIYASpecimenslightly ictericLIPID [id number] 23:52:38 Test Item Value Reference Range Interpretation Comments TRIGLYCERIDES (BEAKER) (test code = 114 mg/dL 540) CHOLESTEROL (SimpleGeoAKER) (test code = 110 mg/dL 631) HDL CHOLESTEROL (BEAKER) (test code 20 mg/dL = 976) LDL CHOLESTEROL CALCULATED (SimpleGeoAKER) 67 mg/dL (test code = 633) Triglyceride Reference Range: Low Risk <150 Borderline 150-199 High Risk 200-499 Very High Risk >=500Cholesterol Reference Range: Low Risk <200 Borderline 200-239 High Risk >240HDL Cholesterol Reference Range: Low Risk >=60 High Risk <40LDL Cholesterol Reference Range: Optimal <100 Near Optimal 100-129 Borderline 130-159 High 160-189 Very High >=190 Melting Furnace Skimmer ID - [id number] ID - [id number] ID - [id number] slightly ictericTROPONIN [id number] 23:35:43 Test Item Value Reference Range Interpretation Comments TROPONIN I (BEAKER) (test code = 397) < ng/mL 0.00-0.15 Troponin I (TnI) levels must be interpreted in the context of the presenting symptoms and the clinical findings. Elevated TnI levels indicate myocardial damage, but are not specific for ischemic heart disease. Elevated TnI levels are seen in patients with other cardiac conditions (including myocarditis and congestive heart failure), and slight TnI elevations occur in patients with other conditions, including sepsis, renal failure, acidosis, acute neurological disease, and persistent tachyarrhythmia.Melting [employer]ace Skimmer ID - [id number] 2021-10-03 23:29:17 Test Item Value Reference Range Interpretation Comments MAGNESIUM (BEAKER) (test code = 1.3 mg/dL 1.5-3.0 L 627) Melting Furnace Skimmer ID - [id number] ID - [id number] ID - [id number] ID - [id number] 23:25:42 Test Item Value Reference Range Interpretation Comments PHOSPHORUS (BEAKER) (test code = 3.5 mg/dL 2.5-4.5 604) [employer] Skimmer ID - [id number] [id number] 23:24:22 Test Item Value Reference Range Interpretation Comments PROTIME (BEAKER) 16.1 seconds 9.3-12.0 H Final Infor mation (test code = 759) (Auto Outp ut) INR (BEAKER) (test 1.51 See_Comment Final Inf ormation code = 370) (Auto Output) [Automated mess age] The system [employer] generated this result transmitted ref erence range: <=5.90. The reference range was not used to int erpret this result as normal/abnormal . RECOMMENDED COUMADIN/WARFARIN INR THERAPY RANGESSTANDARD DOSE: 2.0 - 3.0 Includes: PROPHYLAXIS forvenous thrombosis, systemic embolization; TREATMENT for venous thrombosis and/or pulmonary embolus.HIGH RISK: Target INR is 2.5-3.5 for patients with mechanical heart valves.CBC W/PLT COUNT & AUTO DIFFERENTIAL 2021-10-03 23:12:51 Test Item Value Reference Range Interpretation Comments WHITE BLOOD CELL COUNT (BEAKER) 7.1 K/ L 4.0-10.0 (test code = 775) RED BLOOD CELL COUNT (BEAKER) 2.36 M/ L 4.00-5.00 L (test code = 761) HEMOGLOBIN (BEAKER) (test code = 9.6 GM/DL 12.0-15.5 L 410) HEMATOCRIT (BEAKER) (test code = 27.3 % 36.0-46.0 L 411) MEAN CORPUSCULAR VOLUME (BEAKER) 115.7 fL 82.0-99.0 H (test code = 753) MEAN CORPUSCULAR HEMOGLOBIN 40.7 pg 27.0-33.0 H (BEAKER) (test code = 751) MEAN CORPUSCULAR HEMOGLOBIN CONC 35.2 GM/DL 32.0-36.0 (BEAKER) (test code = 752) RED CELL DISTRIBUTION WIDTH 17.0 % 12.0-15.0 H (BEAKER) (test code = 412) PLATELET COUNT (BEAKER) (test code 69 K/CU MM 150-430 L = 756) MEAN PLATELET VOLUME (BEAKER) 9.5 fL 6.0-11.5 (test code = 754) NUCLEATED RED BLOOD CELLS (BEAKER) 0 /100 WBC 0-0 (test code = 413) NEUTROPHILS RELATIVE PERCENT 67 % (BEAKER) (test code = 429) LYMPHOCYTES RELATIVE PERCENT 21 % (BEAKER) (test code = 430) MONOCYTES RELATIVE PERCENT 10 % (BEAKER) (test code = 431) EOSINOPHILS RELATIVE PERCENT 1 % (BEAKER) (test code = 432) BASOPHILS RELATIVE PERCENT 1 % (BEAKER) (test code = 437) NEUTROPHILS ABSOLUTE COUNT 4.69 K/ L 1.80-8.00 (BEAKER) (test code = 670) LYMPHOCYTES ABSOLUTE COUNT 1.48 K/ L 1.48-4.50 (BEAKER) (test code = 414) MONOCYTES ABSOLUTE COUNT (BEAKER) 0.70 K/ L 0.00-1.30 (test code = 415) EOSINOPHILS ABSOLUTE COUNT 0.04 K/ L 0.00-0.50 (BEAKER) (test code = 416) BASOPHILS ABSOLUTE COUNT (BEAKER) 0.09 K/ L 0.00-0.20 (test code = 417) IMMATURE GRANULOCYTES-RELATIVE 1 % 0-0 H PERCENT (BEAKER) (test code = 9777)"
[2021-10-31] MEDS ORDERED: HYDRALAZINE HCL 20 MG/ML VIAL IV PRN (16:10)
[2021-10-31 16:13] VITALS: BMI 22.8
--- NOTE | 2021-10-31 16:22 | P.HP ---
Certification for Inpatient Patient admitted to: Inpatient With expected LOS: >2 Midnights Patient will require the following post-hospital care: Other (possible inpatient addiction services) Practitioner: I am a practitioner with admitting privileges, knowledge of patien t current condition, hospital course, and medical plan of care. Services: Services provided to patient in accordance with Admission requirements found in Title 42 Section 412.3 of the Code of Federal Regulations Patient History Date of Service: 10/31/21 Primary Care Provider: Willie Reason for admission: ETOH withdrawals History of Present Illness: Patient is a recent office patient of [facility] with a history of alcoholic liver cirrhosis. She recently had a paracentesis with Dr. Dela Cruz. The patient called the office this morning asking for pain medications. She has had one visit and asked for pain medications then too. Unfortunately she has been act ively drinking and giving her acetaminophen or narcotics in an outpatient setting would be very dangerous. She initially denied that she had drank that day. However her sister came to the office and asked if there was anything we could do. She confirmed that the patient is drinking. The patient lives with a who is also an active alcoholic. Can give her pain medications in a monitored setting. She does have a history of tremers and delirium when she stops drinking. The patient had a Lopez Dwyer class B based on labs during last admission. She has a good chance if she can stop drinking. Considering this will admit her to help stop drinking, prevent DT's and set her up with out patients services. She did state this morning that she had bruising on her belly. She now states it was only reddness. She admits to have 4 drinks today. This is her standard amount. She has a 36 year history of alcoholism Allergies clindamycin Allergy (Verified 01/04/21 12:49) Rash codeine Allergy (Verified 01/05/21 12:14) Itching ondansetron [From Zofran] Allergy (Verified 01/04/21 23:04) Hives vancomycin Allergy (Verified 01/05/21 12:14) Hives Home Medications: Cefdinir [Omnicef] 300 mg PO BID #14 capsule 01/07/21 Hydrocodone 10/APAP 325 [[place] 10/325*] 1 tab PO Q8HP PRN #30 tab 01/07/21 Pantoprazole [Protonix Tab*] 40 mg PO Q12H #60 tab 01/07/21 Tramadol HCl/Acetaminophen [Ultracet Tablet] 1 each PO Q12HP #30 tablet 01/07/21 metroNIDAZOLE [Flagyl] 500 mg PO Q8H #21 tablet 01/07/21 Lactobacillus Acidophilus [Acidophilus Lactobacilli] 1 each PO TID #30 capsule 01/08/21 - Past Medical/Surgical History Diabetic: No -: Hep B -: Hep C -: Hypertension -: Cirrhosis -: Cataract sx bilateral-May 2020 -: tubal ligation -: 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 moist/pink, EOMI, Sclerae nonicteric Neck: Supple, 2+ carotid pulse no bruit, No LAD, Without JVD or thyroid abnorma lity Respiratory: Clear to auscultation bilaterally, Normal air movement Cardiovascular: Regular rate/rhythm, Normal S1 S2 Gastrointestinal: Normal bowel sounds, No tenderness, Other (mild rash on the lower belly, no bruising ), Ascites Musculoskeletal: No tenderness Integumentary: No rashes Neurological: Normal gait, Normal speech, Normal strength at 5/5 x4 extr, Normal tone, Normal affect Lymphatics: No axilla or inguinal lymphadenopathy Assessment and Plan - Problems (Diagnosis) (1) Delirium tremens Current Visit: Yes Status: Acute Plan: considering her history of alcohol withdrawal. Will give her thiamine and fluids. Start the patient on librium for 48 hours. Will give ativan prn seizures or agitation. Will put her on an alcohol withdrawal protochol (2) Alcohol abuse Current Visit: Yes Status: Chronic Plan: Will start her on withdrawal meds. Consider starting welbutrin in the am. We can start a naltraxone as an out patient. Suboxone may be appropriate in the short term for pain. Discussed her mortality with her. With a alcohol cessation and being lopez class B She has a very good mortality. 19% 1 year mortality at that lopez class. She is greatly relieved to hear this. The patient came to me thinking she was a hospice candidate. Both her and her sister were tearful to hear with proper treatment she may have a good long life. However will need to work on this halfway (3) Depression Current Visit: Yes Status: Acute Plan: Plans for welbutrin and councilling as an outpatient. She does not seem suicidal. Qualifiers: Depression Type: major depressive disorder Major depression recurrence: re current Active/Remission status: currently active (4) History of cirrhosis of liver Current Visit: No Status: Acute Plan: Check her recent labs and ammonia level. Will need to check a hepatitis panel. Consider having her seen inpatient by Dr. Dela Cruz. Discharge Plan: Home Plan to discharge in: 48 Hours - Advance Directives Does patient have a Living Will: No Does patient have a Durable POA for Healthcare: No - Code Status/Comfort Care Code Status Assessed: Yes Code Status: Full Code Physician Review: Patient Assessed, Agree with Above Assessment and Plan Critical Care: No Time Spent Managing Pts Care (In Minutes): 75
[2021-10-31] MEDS ORDERED: THIAMINE 200 MG/2 ML INJ IVP ONE (16:30)
[2021-10-31 17:34] LABS: Absolute Lymphocytes (CBC) 3.1 K/uL (0.7-4.9); Hematocrit 28.2 % (36.0-45.0); MPV 7.9 fL (7.6-11.3); RBC Red Blood Cell Count 2.47 M/uL (3.86-4.86)
[2021-10-31] MEDS: NA CHLORIDE 0.9% 1,000 ML IV SCH (17:34)
[2021-10-31 17:49] LABS: Albumin 2.3 g/dL (3.4-5.0); Bilirubin Total 1.9 mg/dL (0.2-1.0); Potassium 3.9 mmol/L (3.5-5.1); Protein, Total 5.8 g/dL (6.4-8.2)
[2021-10-31] MEDS: HYDROMORPHONE HCL 0.5 MG/0.5 ML INJ IV PRN (17:54)
[2021-10-31 18:52] LABS: Platelet Estimate DECR; White Blood Cell Scan OK (OK)
[2021-10-31 18:53] LABS: Blood Morphology Comment NOTED (NOT SEEN); Macrocytosis 2+
[2021-10-31 20:08] LABS: SARS-COV-2 RT PCR NEGATIVE (NEGATIVE)
[2021-10-31 20:09] LABS: Barbiturates NEGATIVE (NEGATIVE); Benzodiazepines POSITIVE (NEGATIVE); Cocaine NEGATIVE (NEGATIVE); METHAMPHETAM NEGATIVE (NEGATIVE); Methadone NEGATIVE (NEGATIVE); Opiates NEGATIVE (NEGATIVE); Phencyclidine NEGATIVE (NEGATIVE); THC Cannibis NEGATIVE (NEGATIVE)
[2021-10-31 20:16] LABS: Urine Appearance CLEAR (Clear); Urine Color COLORLESS (Yellow)
[2021-10-31 20:17] LABS: Urine Bilirubin NEGATIVE (Negative); Urine Blood NEGATIVE (Negative); Urine Glucose NEGATIVE (Negative); Urine Protein NEGATIVE (Negative); Urine Urobilinogen 0.2 mg/dL (0.2-1.0)
[2021-10-31 20:18] LABS: Urine Microscopic Reflex NO UMIC
[2021-10-31] MEDS: LACTOBACILLUS/ACIDOPHILUS TAB PO SCH (20:25)
[2021-11-01] MEDS: HYDROMORPHONE HCL 0.5 MG/0.5 ML INJ IV PRN ×6 (00:14→22:55)
[2021-11-01] MEDS: PANTOPRAZOLE 40MG TABLET PO SCH (05:38)
[2021-11-01 05:43] LABS: Absolute Lymphocytes (CBC) 2.6 K/uL (0.7-4.9); Hematocrit 28.6 % (36.0-45.0); Lymphocytes % 42.4 % (15.3-44.8); MPV 8.2 fL (7.6-11.3); RBC Red Blood Cell Count 2.45 M/uL (3.86-4.86)
[2021-11-01] MEDS: NA CHLORIDE 0.9% 1,000 ML IV SCH ×2 (05:45→18:41)
[2021-11-01 05:50] LABS: Protime INR 1.43
[2021-11-01 06:30] LABS: Albumin 2.3 g/dL (3.4-5.0); Bilirubin Total 2.3 mg/dL (0.2-1.0); Potassium 4.1 mmol/L (3.5-5.1); Protein, Total 5.8 g/dL (6.4-8.2)
[2021-11-01 06:31] LABS: Thyroid Stimulating Hormone 14.9 uIU/mL (0.360-3.740)
[2021-11-01] MEDS: LACTOBACILLUS/ACIDOPHILUS TAB PO SCH ×3 (07:55→20:41)
[2021-11-01] MEDS: chlordiazePOXIDE HCl 5 MG CAP PO PRN (07:55)
[2021-11-01] MEDS: MULTIVITAMIN TAB PO SCH (07:55)
[2021-11-01] MEDS: SPIRONOLACTONE 25 MG TABLET PO SCH (07:55)
[2021-11-01] MEDS: THIAMINE HCL 100 MG TABLET PO SCH (07:56)
[2021-11-01] MEDS: FUROSEMIDE 40 MG/4 ML VIAL IV SCH (07:56)
--- NOTE | 2021-11-01 08:17 | P.PN ---
Subjective Date of Service: 11/01/21 Primary Care Provider: Willie Chief Complaint: ETOH withdrawals Subjective: No new changes Review of Systems General: Other (pain ) Physical Examination - Vital Signs Temperature: 97.2 F Blood Pressure: 97/61 Pulse: 95 Respirations: 18 Pulse Ox (%): 94 - Physical Exam General: Alert, Moderate distress HEENT: Atraumatic, PERRLA, EOMI Neck: Supple, JVD not distended Respiratory: Clear to auscultation bilaterally, Normal air movement Cardiovascular: Regular rate/rhythm, Normal S1 S2 Gastrointestinal: Normal bowel sounds, No tenderness Musculoskeletal: No tenderness Integumentary: No rashes Neurological: Normal speech, Normal tone, Normal affect Lymphatics: No axilla or inguinal lymphadenopathy - Studies Laboratory Data (last 24 hrs) 11/01/21 05:32: PT 15.8 H, INR 1.43 11/01/21 05:32: Sodium 141, Potassium 4.1, BUN 7, Creatinine 0.72, Glucose 81, Total Bilirubin 2.3 H, AST 211 H, ALT 67, Alkaline Phosphatase 117 11/01/21 05:32: WBC 6.2, Hgb 9.6 L, Hct 28.6 L, Plt Count 75 L 10/31/21 17:11: Sodium 140, Potassium 3.9, BUN 6 L, Creatinine 0.72, Glucose 97, Total Bilirubin 1.9 H, AST 169 H, ALT 62, Alkaline Phosphatase 115 10/31/21 17:11: WBC 6.5, Hgb 9.7 L, Hct 28.2 L, Plt Count 72 L Assessment And Plan - Current Problems (Diagnosis) (1) Delirium tremens Current Visit: Yes Status: Acute Plan: considering her history of alcohol withdrawal. Will give her thiamine and fluids. Start the patient on librium for 48 hours. Will give ativan prn seizures or agitation. Will put her on an alcohol withdrawal protochol 11/01 Will add gabapentin to deal with any neuropathy (2) Alcohol abuse Current Visit: Yes Status: Chronic Plan: Will start her on withdrawal meds. Consider starting welbutrin in the am. We can start a naltraxone as an out patient. Suboxone may be appropriate in the short term for pain. Discussed her mortality with her. With a alcohol cessation and being donnie class B She has a very good mortality. 19% 1 year mortality at that donnie class. She is greatly relieved to hear this. The patient came to me thinking she was a hospice candidate. Both her and her sister were tearful to hear with proper treatment she may have a good long life. However will need to work on this watcher automat long goods (3) Depression Current Visit: Yes Status: Acute Plan: Plans for welbutrin and councilling as an outpatient. She does not seem suicidal. Qualifiers: Depression Type: major depressive disorder Major depression recurrence: recurrent Active/Remission status: currently active (4) History of cirrhosis of liver Current Visit: No Status: Acute Plan: Check her recent labs and ammonia level. Will need to check a hepatitis panel. Consider having her seen inpatient by Dr. Dela Cruz. (5) Thrombocytopenia Current Visit: Yes Status: Chronic Plan: most likely due to alcohol. She does need DVT prophylaxis restart the lovenox Discharge Plan: Home Plan to discharge in: Greater than 2 days - Code Status/Comfort Care Code Status Assessed: No Physician Review: Patient Assessed, Agree with Above Assessment and Plan Critical Care: No Time Spent Managing PTS Care (In Minutes): 25
[2021-11-01] MEDS: GABAPENTIN 100 MG CAP PO SCH ×3 (09:24→20:41)
[2021-11-01] MEDS: ENOXAPARIN 30 MG/0.3 ML SQ SCH (09:25)
[2021-11-01] MEDS ORDERED: ONDANSETRON 4 MG/2 ML VIAL IV PRN (13:29)
[2021-11-02] MEDS: HYDROMORPHONE HCL 0.5 MG/0.5 ML INJ IV PRN ×4 (03:30→20:28)
[2021-11-02] MEDS: PANTOPRAZOLE 40MG TABLET PO SCH (05:36)
[2021-11-02] MEDS: LORazepam 2 MG/ML VIAL IV PRN ×2 (05:50→21:50)
[2021-11-02 06:44] LABS: Absolute Lymphocytes (CBC) 1.5 K/uL (0.7-4.9); Hematocrit 28.2 % (36.0-45.0); MPV 8.4 fL (7.6-11.3)
[2021-11-02 06:54] LABS: Albumin 2.4 g/dL (3.4-5.0); Bilirubin Total 4.5 mg/dL (0.2-1.0); Potassium 3.9 mmol/L (3.5-5.1); Protein, Total 5.9 g/dL (6.4-8.2)
[2021-11-02] MEDS: chlordiazePOXIDE HCl 5 MG CAP PO PRN ×2 (08:58→16:24)
[2021-11-02] MEDS: ENOXAPARIN 30 MG/0.3 ML SQ SCH (08:58)
[2021-11-02] MEDS: SPIRONOLACTONE 25 MG TABLET PO SCH (08:59)
[2021-11-02] MEDS: GABAPENTIN 100 MG CAP PO SCH (08:59)
[2021-11-02] MEDS: LACTOBACILLUS/ACIDOPHILUS TAB PO SCH ×3 (08:59→20:27)
[2021-11-02] MEDS: THIAMINE HCL 100 MG TABLET PO SCH (08:59)
[2021-11-02] MEDS: NA CHLORIDE 0.9% 1,000 ML IV SCH (09:00)
[2021-11-02] MEDS: FUROSEMIDE 40 MG/4 ML VIAL IV SCH (09:00)
[2021-11-02] MEDS: MULTIVITAMIN TAB PO SCH (09:00)
--- NOTE | 2021-11-02 11:54 | P.PN ---
Subjective Date of Service: 11/02/21 Primary Care Provider: Willie Chief Complaint: ETOH withdrawals Subjective: Improving (tremors have stopped) Review of Systems 10-point ROS is otherwise unremarkable Gastrointestinal: Abdominal Pain Physical Examination - Vital Signs Temperature: 99.7 F Blood Pressure: 141/67 Pulse: 114 Respirations: 20 Pulse Ox (%): 99 - Physical Exam General: Alert, In no apparent distress HEENT: Atraumatic, PERRLA, EOMI Neck: Supple, JVD not distended Respiratory: Clear to auscultation bilaterally, Normal air movement Cardiovascular: Regular rate/rhythm, Normal S1 S2 Gastrointestinal: Normal bowel sounds, No tenderness Musculoskeletal: No tenderness Integumentary: No rashes Neurological: Normal speech, Normal tone, Normal affect Lymphatics: No axilla or inguinal lymphadenopathy - Studies Laboratory Data (last 24 hrs) 11/02/21 06:04: Sodium 134 L, Potassium 3.9, BUN 11, Creatinine 1.13, Glucose 84, Total Bilirubin 4.5 H, AST 209 H, ALT 66, Alkaline Phosphatase 129 H 11/02/21 06:04: WBC 7.5 D, Hgb 9.4 L, Hct 28.2 L, Plt Count 58 L D Assessment And Plan - Current Problems (Diagnosis) (1) Delirium tremens Current Visit: Yes Status: Acute Plan: considering her history of alcohol withdrawal. Will give her thiamine and fluids. Start the patient on librium for 48 hours. Will give ativan prn seizures or agitation. Will put her on an alcohol withdrawal protochol 11/03. tremors have resolved. Consider stopping the librium tomorrow (2) Alcohol abuse Current Visit: Yes Status: Chronic Plan: Will start her on withdrawal meds. Consider starting welbutrin in the am. We can start a naltraxone as an out patient. Suboxone may be appropriate in the short term for pain. Discussed her mortality with her. With a alcohol cessation and being donnie class B She has a very good mortality. 19% 1 year mortality at that donnie class. She is greatly relieved to hear this. The patient came to me thinking she was a hospice candidate. Both her and her sister were tearful to hear with proper treatment she may have a good long life. However will need to work on this watermaster 11/03 She is getting foster on 11/08 Which we cannot get her to a facility. Will start her on creon for meals. She states she hurts in her pancrease. considering her history she may have some chronic pancreatitis. Creon may improve her pain. (3) Depression Current Visit: Yes Status: Acute Plan: Plans for welbutrin and councilling as an outpatient. She does not seem suicidal. Qualifiers: Depression Type: major depressive disorder Major depression recurrence: recurrent Active/Remission status: currently active (4) History of cirrhosis of liver Current Visit: No Status: Acute Plan: Check her recent labs and ammonia level. Will need to check a hepatitis panel. Consider having her seen inpatient by Dr. Dela Cruz. (5) Thrombocytopenia Current Visit: Yes Status: Chronic Plan: most likely due to alcohol. She does need DVT prophylaxis restart the lovenox Discharge Plan: Home Plan to discharge in: 24 Hours - Code Status/Comfort Care Code Status Assessed: No Physician Review: Patient Assessed, Agree with Above Assessment and Plan Critical Care: No Time Spent Managing PTS Care (In Minutes): 35
[2021-11-02] MEDS: LIPASE/PROTEASE/AMYLASE CAP PO SCH ×3 (13:43→20:27)
[2021-11-02] MEDS: GABAPENTIN 300 MG CAP PO SCH ×2 (13:43→20:27)
[2021-11-03] MEDS: HYDROMORPHONE HCL 0.5 MG/0.5 ML INJ IV PRN (03:15)
[2021-11-03 05:37] LABS: Absolute Lymphocytes (CBC) 1.1 K/uL (0.7-4.9); Hematocrit 24.2 % (36.0-45.0); Lymphocytes % 12.8 % (15.3-44.8); MPV 8.3 fL (7.6-11.3); RBC Red Blood Cell Count 2.09 M/uL (3.86-4.86)
[2021-11-03 05:57] LABS: Albumin 2.3 g/dL (3.4-5.0); Potassium 3.9 mmol/L (3.5-5.1); Protein, Total 5.6 g/dL (6.4-8.2)
[2021-11-03] MEDS: LEVOTHYROXINE SOD 0.088 MG TAB PO SCH (06:03)
[2021-11-03] MEDS: PANTOPRAZOLE 40MG TABLET PO SCH (06:04)
[2021-11-03 06:07] LABS: Magnesium 1.1 mg/dL (1.8-2.4)
[2021-11-03] MEDS: chlordiazePOXIDE HCl 5 MG CAP PO PRN (06:36)
[2021-11-03] MEDS: LIPASE/PROTEASE/AMYLASE CAP PO SCH ×4 (08:46→20:43)
[2021-11-03] MEDS: GABAPENTIN 300 MG CAP PO SCH ×3 (08:47→20:43)
[2021-11-03] MEDS: FUROSEMIDE 40 MG TABLET PO SCH (08:47)
[2021-11-03] MEDS: SPIRONOLACTONE 25 MG TABLET PO SCH (08:47)
[2021-11-03] MEDS: LACTOBACILLUS/ACIDOPHILUS TAB PO SCH ×3 (08:47→20:43)
[2021-11-03] MEDS: BUPROPION HCL XL 150 MG TAB PO SCH (08:47)
[2021-11-03] MEDS: MAGNESIUM OXIDE 400 MG TAB PO SCH (08:48)
[2021-11-03] MEDS: ENOXAPARIN 30 MG/0.3 ML SQ SCH (08:48)
[2021-11-03] MEDS: MULTIVITAMIN TAB PO SCH (08:49)
[2021-11-03] MEDS: THIAMINE HCL 100 MG TABLET PO SCH (08:52)
--- NOTE | 2021-11-03 13:01 | P.PN ---
Subjective Date of Service: 11/03/21 Primary Care Provider: Willie Chief Complaint: ETOH withdrawals Subjective: New changes (had a fall last night and some confusion) Review of Systems 10-point ROS is otherwise unremarkable Neurological: Confusion Physical Examination - Vital Signs Temperature: 98.6 F Blood Pressure: 111/72 Pulse: 97 Respirations: 16 Pulse Ox (%): 97 - Physical Exam General: Alert, In no apparent distress, Confused HEENT: Atraumatic, PERRLA, EOMI Neck: Supple, JVD not distended Respiratory: Clear to auscultation bilaterally, Normal air movement Cardiovascular: Regular rate/rhythm, Normal S1 S2 Gastrointestinal: Normal bowel sounds, No tenderness Musculoskeletal: No tenderness Integumentary: No rashes Neurological: Normal speech, Normal tone, Normal affect Lymphatics: No axilla or inguinal lymphadenopathy - Studies Laboratory Data (last 24 hrs) 11/03/21 05:21: Sodium 133 L, Potassium 3.9, BUN 15, Creatinine 1.12, Glucose 89, Magnesium 1.1 L* D, Total Bilirubin 4.0 H, AST 202 H, ALT 62, Alkaline Phosphatase 116 11/03/21 05:21: WBC 8.3, Hgb 8.1 L, Hct 24.2 L, Plt Count 59 L Assessment And Plan - Current Problems (Diagnosis) (1) Delirium tremens Current Visit: Yes Status: Acute Plan: considering her history of alcohol withdrawal. Will give her thiamine and fluids. Start the patient on librium for 48 hours. Will give ativan prn seizures or agitation. Will put her on an alcohol withdrawal protochol 11/03. has confusion. Stop dilaudid, ativan and librium. will give clonazepam prn for agitation She seems confused. However she plays a common script about the medication that she perfers that starte with a "G". After discussing it she eventually settles on Gilaudid(hinting towards dilaudid)as the medication that helps her the best. She has asked for pain medss on all of my interactions with her. Here and in the office. (2) Alcohol abuse Current Visit: Yes Status: Chronic Plan: Will start her on withdrawal meds. Consider starting welbutrin in the am. We can start a naltraxone as an out patient. Suboxone may be appropriate in the short term for pain. Discussed her mortality with her. With a alcohol cessation and being donnie class B She has a very good mortality. 19% 1 year mortality at that donnie class. She is greatly relieved to hear this. The patient came to me thinking she was a hospice candidate. Both her and her sister were tearful to hear with proper treatment she may have a good long life. 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 Will start her on creon for meals. She states she hurts in her pancrease. considering her history she may have some chronic pancreatitis. Creon may improve her pain. (3) Depression Current Visit: Yes Status: Acute Plan: Plans for welbutrin and councilling as an outpatient. She does not seem suicidal. Qualifiers: Depression Type: major depressive disorder Major depression recurrence: recurrent Active/Remission status: currently active (4) History of cirrhosis of liver Current Visit: No Status: Acute Plan: Check her recent labs and ammonia level. Will need to check a hepatitis panel. Consider having her seen inpatient by Dr. Dela Cruz. (5) Thrombocytopenia Current Visit: Yes Status: Chronic Plan: most likely due to alcohol. She does need DVT prophylaxis restart the lovenox (6) Magnesium deficiency Current Visit: Yes Status: Acute Plan: will put her on a magnesium replacement protochol Discharge Plan: Home Plan to discharge in: 24 Hours - Code Status/Comfort Care Code Status Assessed: No Physician Review: Patient Assessed, Agree with Above Assessment and Plan Critical Care: No Time Spent Managing PTS Care (In Minutes): 25
[2021-11-03] MEDS: clonazePAM 1 MG TAB PO PRN ×2 (14:22→23:52)
[2021-11-03] MEDS ORDERED: NA CHLORIDE 0.9% 100 ML ONE (16:56)
[2021-11-03] MEDS: MAGNESIUM SULFATE 1 gm IVPB 1 GM/100 ML BAG IV SCH ×3 (16:59→20:42)
[2021-11-03] MEDS: chlordiazePOXIDE HCl 5 MG CAP PO SCH ×2 (17:00→23:53)
[2021-11-04] MEDS: PANTOPRAZOLE 40MG TABLET PO SCH (05:18)
[2021-11-04] MEDS: LEVOTHYROXINE SOD 0.088 MG TAB PO SCH (05:18)
[2021-11-04] MEDS: chlordiazePOXIDE HCl 5 MG CAP PO SCH ×4 (05:18→23:05)
[2021-11-04] MEDS ORDERED: LORazepam 2 MG/ML VIAL IV ONE (05:37)
[2021-11-04 06:11] LABS: Absolute Lymphocytes (CBC) 0.6 K/uL (0.7-4.9); Hematocrit 25.7 % (36.0-45.0); Lymphocytes % 7.7 % (15.3-44.8); MPV 8.3 fL (7.6-11.3); RBC Red Blood Cell Count 2.23 M/uL (3.86-4.86)
[2021-11-04 06:29] LABS: Albumin 2.1 g/dL (3.4-5.0); Bilirubin Total 4.1 mg/dL (0.2-1.0); Potassium 3.1 mmol/L (3.5-5.1); Protein, Total 5.4 g/dL (6.4-8.2)
[2021-11-04 06:35] LABS: Magnesium 1.4 mg/dL (1.8-2.4)
[2021-11-04] MEDS: LIPASE/PROTEASE/AMYLASE CAP PO SCH ×4 (08:53→21:57)
[2021-11-04] MEDS: LACTOBACILLUS/ACIDOPHILUS TAB PO SCH ×3 (08:53→21:57)
[2021-11-04] MEDS: FUROSEMIDE 40 MG TABLET PO SCH (08:54)
[2021-11-04] MEDS: SPIRONOLACTONE 25 MG TABLET PO SCH (08:54)
[2021-11-04] MEDS: GABAPENTIN 300 MG CAP PO SCH ×3 (08:55→21:57)
[2021-11-04] MEDS: THIAMINE HCL 100 MG TABLET PO SCH (08:55)
[2021-11-04] MEDS: MULTIVITAMIN TAB PO SCH (08:55)
[2021-11-04] MEDS: BUPROPION HCL XL 150 MG TAB PO SCH (08:55)
[2021-11-04] MEDS: MAGNESIUM OXIDE 400 MG TAB PO SCH (08:55)
[2021-11-04] MEDS: ENOXAPARIN 30 MG/0.3 ML SQ SCH (08:56)
[2021-11-04] MEDS ORDERED: ENSURE CLEAR 200 ML CAN PO SCH (09:00)
[2021-11-04] MEDS ORDERED: MAGNESIUM SULFATE 1 gm IVPB 1 GM/100 ML BAG IV ONE ×2 (09:00→20:00)
--- NOTE | 2021-11-04 10:53 | P.PN ---
Subjective Date of Service: 11/04/21 Primary Care Provider: Willie Chief Complaint: ETOH withdrawals Subjective: No new changes Review of Systems 10-point ROS is otherwise unremarkable Physical Examination - Vital Signs Temperature: 98.9 F Blood Pressure: 127/87 Pulse: 91 Respirations: 18 Pulse Ox (%): 98 - Physical Exam General: Alert, In no apparent distress HEENT: Atraumatic, PERRLA, EOMI Neck: Supple, JVD not distended Respiratory: Clear to auscultation bilaterally, Normal air movement Cardiovascular: Regular rate/rhythm, Normal S1 S2 Gastrointestinal: Normal bowel sounds, No tenderness Musculoskeletal: No tenderness Integumentary: No rashes Neurological: Normal speech, Normal tone, Normal affect Lymphatics: No axilla or inguinal lymphadenopathy - Studies Laboratory Data (last 24 hrs) 11/04/21 05:57: Sodium 134 L, Potassium 3.1 L, BUN 10, Creatinine 0.85, Glucose 118 H, Magnesium 1.4 L*, Total Bilirubin 4.1 H, AST 184 H, ALT 57, Alkaline Phosphatase 113 11/04/21 05:57: WBC 7.7, Hgb 8.7 L, Hct 25.7 L, Plt Count 71 L D 11/03/21 22:52: Magnesium 1.8 D 11/03/21 15:54: Magnesium 0.8 L* Assessment And Plan - Current Problems (Diagnosis) (1) Delirium tremens Current Visit: Yes Status: Acute Plan: considering her history of alcohol withdrawal. Will give her thiamine and fluids. Start the patient on librium for 48 hours. Will give ativan prn se izures or agitation. Will put her on an alcohol withdrawal protochol 11/03. has confusion. Stop dilaudid, ativan and librium. will give clonazepam prn for agitation She seems confused. However she plays a common script about the medication that she perfers that starte with a "G". After discussing it she eventually settles on Gilaudid(hinting towards dilaudid)as the medication that helps her the best. She has asked for pain medss on all of my interactions with her. Here and in the office. (2) Alcohol abuse Current Visit: Yes Status: Chronic Plan: Will start her on withdrawal meds. Consider starting welbutrin in the am. We can start a naltraxone as an out patient. Suboxone may be appropriate in the short term for pain. Discussed her mortality with her. With a alcohol cessation and being donnie class B She has a very good mortality. 19% 1 year mortality at that donnie class. She is greatly relieved to hear this. The patient came to me thinking she was a hospice candidate. Both her and her sister were tearful to hear with proper treatment she may have a good long life. 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 Will start her on creon for meals. She states she hurts in her pancrease. considering her history she may have some chronic pancreatitis. Creon may improve her pain. (3) Depression Current Visit: Yes Status: Acute Plan: Plans for welbutrin and councilling as an outpatient. She does not seem suicidal. Qualifiers: Depression Type: major depressive disorder Major depression recurrence: recurrent Active/Remission status: currently active (4) History of cirrhosis of liver Current Visit: No Status: Acute Plan: Check her recent labs and ammonia level. Will need to check a hepatitis panel. Consider having her seen inpatient by Dr. Dela Cruz. (5) Thrombocytopenia Current Visit: Yes Status: Chronic Plan: most likely due to alcohol. She does need DVT prophylaxis restart the lovenox (6) Magnesium deficiency Current Visit: Yes Status: Acute Plan: will put her on a magnesium replacement protochol (7) Chronic pancreatitis Current Visit: Yes Status: Chronic Plan: will give some toradol. Will continue creon, gabapentin. Will start her on naltraxone. The most important factor is alcohol cessation as an outpatient. Will have her seen by Nutrition tomorrow for a low fat diet to decrease her abdominal pain Qualifiers: Pancreatitis type: alcohol induced Qualified Code(s): K86.0 - Alcohol- induced chronic pancreatitis Discharge Plan: Home Plan to discharge in: 24 Hours - Code Status/Comfort Care Code Status Assessed: No Physician Review: Patient Assessed, Agree with Above Assessment and Plan Critical Care: No Time Spent Managing PTS Care (In Minutes): 30
[2021-11-04] MEDS ORDERED: ACETAMINOPHEN 500 MG TAB PO ONE (11:56)
[2021-11-04] MEDS: KETOROLAC 30 MG/ML INJ IV PRN (12:31)
[2021-11-04] MEDS: ENSURE HIGH PROTEIN 237 ML CAN PO SCH (21:57)
[2021-11-05] MEDS: KETOROLAC 30 MG/ML INJ IV PRN (01:54)
[2021-11-05 05:57] LABS: Absolute Lymphocytes (CBC) 0.9 K/uL (0.7-4.9); Hematocrit 24.1 % (36.0-45.0); Lymphocytes % 11.6 % (15.3-44.8)
[2021-11-05] MEDS: PANTOPRAZOLE 40MG TABLET PO SCH (06:19)
[2021-11-05] MEDS: LEVOTHYROXINE SOD 0.088 MG TAB PO SCH (06:19)
[2021-11-05] MEDS: chlordiazePOXIDE HCl 5 MG CAP PO SCH ×2 (06:19→12:00)
[2021-11-05 06:39] LABS: Albumin 1.9 g/dL (3.4-5.0); Bilirubin Total 4.4 mg/dL (0.2-1.0); Protein, Total 5.1 g/dL (6.4-8.2)
[2021-11-05 06:46] LABS: Magnesium 1.8 mg/dL (1.8-2.4); White Blood Cell Scan OK (OK)
[2021-11-05 06:50] LABS: Blood Morphology Comment NOTED (NOT SEEN)
[2021-11-05 06:51] LABS: Anisocytosis 2+; Macrocytosis 2+; Platelet Estimate DECR; Platelets, Giant FEW
[2021-11-05] MEDS: MULTIVITAMIN TAB PO SCH (08:23)
[2021-11-05] MEDS: LACTOBACILLUS/ACIDOPHILUS TAB PO SCH (08:23)
[2021-11-05] MEDS: LIPASE/PROTEASE/AMYLASE CAP PO SCH ×2 (08:23→12:00)
[2021-11-05] MEDS: THIAMINE HCL 100 MG TABLET PO SCH (08:23)
[2021-11-05] MEDS: SPIRONOLACTONE 25 MG TABLET PO SCH (08:23)
[2021-11-05] MEDS: GABAPENTIN 300 MG CAP PO SCH (08:23)
[2021-11-05] MEDS: BUPROPION HCL XL 150 MG TAB PO SCH (08:23)
[2021-11-05] MEDS: MAGNESIUM OXIDE 400 MG TAB PO SCH (08:23)
[2021-11-05] MEDS: ENSURE HIGH PROTEIN 237 ML CAN PO SCH (08:25)
[2021-11-05] MEDS: FUROSEMIDE 40 MG TABLET PO SCH (08:25)
[2021-11-05] MEDS: ENOXAPARIN 30 MG/0.3 ML SQ SCH (08:26)
[2021-11-05] MEDS ORDERED: MAGNESIUM SULFATE 1 gm IVPB 1 GM/100 ML BAG IV ONE (09:00)
[2021-11-05 09:49] VITALS: O2SAT 95
--- NOTE | 2021-11-05 11:44 | P.DS ---
Admission Date: 11/02/21 Discharge Date: 11/05/21 Primary Care Provider: Willie Disposition: ROUTINE DISCHARGE Discharge Condition: FAIR Reason for Admission: ETOH withdrawals - Problems (1) Delirium tremens Current Visit: Yes Status: Acute (2) Alcohol abuse Current Visit: Yes Status: Chronic (3) Depression Current Visit: Yes Status: Acute Qualifiers: Depression Type: major depressive disorder Major depression recurrence: recurrent Active/Remission status: currently active (4) History of cirrhosis of liver Current Visit: No Status: Acute (5) Thrombocytopenia Current Visit: Yes Status: Chronic (6) Magnesium deficiency Current Visit: Yes Status: Acute (7) Chronic pancreatitis Current Visit: Yes Status: Chronic Qualifiers: Pancreatitis type: alcohol induced Qualified Code(s): K86.0 - Alcohol-in duced chronic pancreatitis Brief History of Present Illness: Patient is a recent office patient of [employer] with a history of alcoholic liver cirrhosis. She recently had a paracentesis with Dr. Dela Cruz. The patient called the office this morning asking for pain medications. She has had one visit and asked for pain medications then too. Unfortunately she has been acti vely drinking and giving her acetaminophen or narcotics in an outpatient setting would be very dangerous. She initially denied that she had drank that day. However her sister came to the office and asked if there was anything we could do. She confirmed that the patient is drinking. The patient lives with a who is also an active alcoholic. Can give her pain medications in a monitored setting. She does have a history of tremers and delirium when she stops drinking. The patient had a Donnie Dwyer class B based on labs during last admission. She has a good chance if she can stop drinking. Considering this will admit her to help stop drinking, prevent DT's and set her up with out patients services. She did state this morning that she had bruising on her belly. She now states it was only reddness. She admits to have 4 drinks today. This is her standard amount. She has a 36 year history of alcoholism Hospital Course: Patient was admitted for withdrawal. She was calling for pain management. Admitted as we cannot treat pain when she is actively drinking. She was started on chloradiapoxide as she was having symptoms of DT's. She was pain seeking during her stay. However this is normal for patients struggling with addiction. Magnesium was replaced. She was started on levothyroxine, buproprion and her lasix and spirnolactone was continued. Will discharge her home today. Had a long talk about treatment. Which will be long-term. Will give her creon and gabapentin for her abdominal pain. With occasional diclofenac. Will consider naltroxone as an outpatient. Perhaps a short course of suboxone. Will start her on home PT. Then move towards outpatient PT to get her more mobile. We have discussed that with alcohol cessation and treatment. She has a very good mortality with only a donnie score of B. Thank you for allowing me to take part in her care. . Vital Signs/Physical Exam: Temp Pulse Resp BP Pulse Ox 98.8 F 103 H 16 100/60 95 11/05/21 08:00 11/05/21 08:23 11/05/21 08:00 11/05/21 08:23 11/05/21 08:00 General: Alert, In no apparent distress HEENT: Atraumatic, PERRLA, EOMI Neck: Supple, JVD not distended Respiratory: Clear to auscultation bilaterally, Normal air movement Cardiovascular: Regular rate/rhythm, Normal S1 S2 Gastrointestinal: Normal bowel sounds, No tenderness Musculoskeletal: No tenderness Integumentary: No rashes Neurological: Normal speech, Normal tone, Normal affect Lymphatics: No axilla or inguinal lymphadenopathy Laboratory Data at Discharge: WBC 7.6 K/uL (4.3-10.9) 11/05/21 05:52 Hgb 8.2 g/dL (12.0-15.0) L 11/05/21 05:52 Hct 24.1 % (36.0-45.0) L 11/05/21 05:52 Plt Count 77 K/uL (152-406) L 11/05/21 05:52 PT 15.8 SECONDS (9.5-12.5) H 11/01/21 05:32 INR 1.43 11/01/21 05:32 Sodium 136 mmol/L (136-145) 11/05/21 05:52 Potassium 3.0 mmol/L (3.5-5.1) L 11/05/21 05:52 BUN 13 mg/dL (7-18) 11/05/21 05:52 Creatinine 1.08 mg/dL (0.55-1.3) 11/05/21 05:52 Glucose 120 mg/dL (74-106) H 11/05/21 05:52 Magnesium 1.8 mg/dL (1.8-2.4) 11/05/21 05:52 Total Bilirubin 4.4 mg/dL (0.2-1.0) H 11/05/21 05:52 AST 150 U/L (15-37) H 11/05/21 05:52 ALT 50 U/L (12-78) 11/05/21 05:52 Alkaline Phosphatase 123 U/L (45-117) H 11/05/21 05:52 Home Medications: Cefdinir [Omnicef] 300 mg PO BID #14 capsule 01/07/21 Hydrocodone 10/APAP 325 [Centre 10/325*] 1 tab PO Q8HP PRN #30 tab 01/07/21 Pantoprazole [Protonix Tab*] 40 mg PO Q12H #60 tab 01/07/21 Tramadol HCl/Acetaminophen [Ultracet Tablet] 1 each PO Q12HP #30 tablet 01/07/21 metroNIDAZOLE [Flagyl] 500 mg PO Q8H #21 tablet 01/07/21 Lactobacillus Acidophilus [Acidophilus Lactobacilli] 1 each PO TID #30 capsule 01/08/21 Bupropion *Xl* [Wellbutrin XL*] 150 mg PO DAILY 90 Days #90 tab 11/05/21 Diclofenac Sodium 50 mg PO BID* PRN 15 Days #30 tablet. 11/05/21 Ensure High Protein 237 ml PO BID can 11/05/21 Levothyroxine [Synthroid*] 0.088 mg PO DAILYAC 90 Days #90 tab 11/05/21 Lipase/Protease/Amylase [Romie Gao 12,000 Unit Capsule] 1 each PO TIDWM 30 Days #300 capsule. 11/05/21 Lipase/Protease/Amylase [Romie Gao 12,000 Units Capsule] 2 cap PO TIDWMHS cap 11/05/21 Magnesium Oxide [Magnesium Oxide 400] 240 mg PO DAILY 30 Days #30 powd.pack 11/05/21 New Medications: Lipase/Protease/Amylase [Romie Gao 12,000 Unit Capsule] 1 each PO TIDWM 30 Days #300 capsule. Diclofenac Sodium 50 mg PO BID* PRN 15 Days #30 tablet.dr BORGES Reason: Pain Scale 5-7 (Moderate) Magnesium Oxide [Magnesium Oxide 400] 240 mg PO DAILY 30 Days #30 powd.pack Levothyroxine [Synthroid*] 0.088 mg PO DAILYAC 90 Days #90 tab Bupropion *Xl* [Wellbutrin XL*] 150 mg PO DAILY 90 Days #90 tab Diet: low fat di Activity: Ad robson Followup: Mio Tapia MD [ACTIVE - CAN ADMIT] - 2-3 Days Physician Review: Patient Assessed, Agree with Above Assessment and Plan Time spent managing pt's care (in minutes): 40
[2021-11-05 12:08] VITALS: BP 103/66; TEMP 98.2
[2021-11-06 20:33] LABS: HBsAG Nonreactive (Nonreactive)
[2021-11-07 20:03] LABS: Hep C Virus RNA (PCR)log <1.18 log IU/mL
== END 2021-11-05 13:05 | disposition home health service (06) | DRG 897 ==
LOC: 2ND 14:32 → OBSVTOIN 11-02 08:23
PROVIDERS: ADMIT Internal Medicine; ATTEND Internal Medicine
DX: F10.131 Alcohol abuse with withdrawal delirium (principal); K86.0 Alcohol-induced chronic pancreatitis; K70.30 Alcoholic cirrhosis of liver without ascites; F32.9 Major depressive disorder, single episode, unspecified; D69.6 Thrombocytopenia, unspecified; E61.2 Magnesium deficiency; Z76.5 Malingerer [conscious simulation]; R10.9 Unspecified abdominal pain; Z20.822 Contact with and (suspected) exposure to COVID-19
CPT/HCPCS: 0240U; 36415; 80053; 80074; 80307; 80320; 81003; 82140; 82947; 83036; 83735; 84439; 84443; 85025; 85610; 87522; 97110; 97112; 97116; 97161; 97530; G0378; G0379; J1170; J1650; J1940; J2405; J3411; J3475; J7030

== ENCOUNTER 2021-11-10 20:04 | Inpatient (IN) | payer OTHER ==
--- OUTSIDE RECORDS SUMMARY | 2021-11-10 20:09 | XMS REPORT | Continuity of Care Document ---
:1960 Author Organization [facility] t Address [address] [place] [address] Care Team Providers Name Role Phone RAYMUNDO, Kyler Primary Care Physician Unavailable Raymundo KENDRICK, Kyler Attending Clinician DARIUS Attending Clinician Unavailable Billie RIVERA Attending Clinician Unavailable PATRICE Attending Clinician Unavailable Kyler FONSECA Attending Clinician Unavailable Dunia BHARDWAJ Attending Clinician Unavailable Chelita TERRAZAS R Attending Clinician BETSY GOMEZ Attending Clinician Unavailable Sebastien ENRIQUEZ Attending Clinician Delmy TOTH Attending Clinician Unavailable Delmy Toth MD Attending Clinician NAILA ALFARO Attending Clinician Unavailable [place] Attending Clinician Unavailable Betsy Gomez MD Attending Clinician Doctor Unassigned, Name Attending Clinician Unavailable DARIUS Admitting Clinician Unavailable RODOLFO MARRERO Admitting Clinician Unavailable Dunai BHARDWAJ Admitting Clinician Unavailable NAILA ALFARO Admitting Clinician Unavailable Payers Payer Name Policy Type Policy Number Effective Date Expiration Date S ource Problems Condition Condition Condition Status Onset Resolution Last Treating Co mments Source Name Details Category Date Date Treatment Clinician Date Alcoholic Alcoholic Disease Active Overview: NPI:183 cirrhosis cirrhosis 1- Formattin 1 [id number] of liver of liver 00:00: g of this with with 00 note ascites ascites might be different from the original. Added automatic ally from request for surgery [id number] Hepatitis Hepatitis Disease Active Overview: NPI:183 C virus C virus 08-03 Formattin 99179 81 infection infection 00:00: g of this without without 00 note hepatic hepatic might be coma, coma, different unspecifie unspecifie from the d d original. chronicity chronicity Added automatic ally from request for surgery [id number] NSAID NSAID Disease Active Overview: NPI:18 3 long-term long-term 08-03 Formattin 1 111883 use use 00:00: g of this 00 note might be different from the original. 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 Immunizati Immunizati Disease Active 2017-07 N PI:183 on on 08-03 3570649 counseling counseling 00:00: 00 Hepatitis Hepatitis Disease Active 2017-07 NPI :183 B core B core 08-03 [id number] antibody antibody 00:00: positive positive 00 Blurry Blurry Disease Active 2017-07 NPI:183 vision vision 08-03 [id number] 00:00: 00 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 Added automatic ally from request for surgery [id number] Special Special Disease Active Overview: NPI: 183 screening screening 02-09 Formattin 1 059387 for for 00:00: g of this malignant malignant 00 note neoplasms, neoplasms, might be colon colon different from the original. Added automatic ally from request for surgery [id number] Dysphagia, Dysphagia, Disease Active Overview : NPI:183 oropharyng oropharyng 02-09 Formattin 6158763 eal phase eal phase 00:00: g of this 00 note might be different from the original. Added automatic ally from request for surgery [id number] Gastroesop Gastroesop Disease Active Overview : NPI:183 hageal hageal 02-09 Formattin 7087405 reflux reflux 00:00: g of this disease, disease, 00 note esophagiti esophagiti might be s presence s presence different not not from the specified specified original. Added automatic ally from request for surgery [id number] Hepatitis Hepatitis Disease Active Overview: NPI:183 C C 01-08 Formattin 1142806 00:00: g of this 00 note might be different from the original. currently being treated at [facility] transferr ing to [facility] Allergies, Adverse Reactions, Alerts Allergy Allergy Status Severity Reaction(s) Onset Inactive Treating Comm ents Source Name Type Date Date Clinician FISH Allergy Active High Sob 2021-0 [facility] CONTAINI 4-01 NG 00:00: PRODUCTS 00 CLINDAMY Allergy Active 2021-0 [facility] EDDIE 3- 00:00: 00 ONDANSET Allergy Active 2021-0 [facility] GAUDENCIO HCL 3-31 00:00: 00 CODEINE Allergy Active Itching 2021-0 [facility] 3-30 00:00: 00 VANCOMYC Allergy Active High Hives 2021-0 [facility] IN 3-30 00:00: 00 Vancomyc Propensi Active Hives NPI:18 3 in ty to 03-18 [id number] adverse 00:00: reaction 00 s VANCOMYC DRUG Active Hives NPI:183 IN INGREDI 03-18 [id number] 00:00: 00 Codeine Propensi Active Itching NPI:18 3 ty to 01-08 [id number] adverse 00:00: reaction 00 s CODEINE DRUG Active ITCHING NPI:183 INGREDI 01-08 [id number] 00:00: 00 NO KNOWN Allergy Active [facility] ALLERGIE S Social History Social Habit Start Date Stop Date Quantity Comments Source History of tobacco Cigarette Smoker use History SDOH NPI:[id number] Alcohol Frequency History SDOH NPI:[id number] Alcohol Std Drinks History SDOH NPI:[id number] Alcohol Binge Exposure to Not sure NPI:[id number] 1 SARS-CoV-2 (event) Alcohol intake 2021-10-15 2021-10-15 .57 /d NPI:[id number] 00:00:00 00:00:00 Tobacco Comment 2018-03-18 2018-03-18 1 pack a day NPI:942 [id number] 00:00:00 00:00:00 Cigarettes smoked 2018-01-08 2018-01-08 NPI:527 [id number] current (pack per 00:00:00 00:00:00 day) - Reported Cigarette 2018-01-08 2018-01-08 pack-years 00:00:00 00:00:00 Tobacco use and 2018-01-08 2018-01-08 Never used NPI:[id number] exposure 00:00:00 00:00:00 Alcohol Comment 2018-01-08 2018-01-08 quit etoh when NPI:1 [id number] 00:00:00 00:00:00 started [employer] 6.9.18 Sex [birth year] At [birth year] NPI:[id number] 13346 00:00:00 00:00:00 Smoking Status Start Date Stop Date Source Current every day smoker 2018-01-08 00:00:00 NPI :[id number] Medications Ordered Filled Start Stop Current Ordering Indication Dosage Frequency Signature Comments Components Source Medication Medication Date Date Medication? Clinician (SIG) Name Name traMADoL 50mg 50 mg, NPI:18 3 (ULTRAM) 10-15 Oral, [id number] tablet 50 18:45: 17:55 ONCE, 1 mg 00 :00 dose, On Fri10/15/21 at 1345, Routine iopamidol No [id number] 100mL 100 mL, NPI:183 (ISOVUE 10-15 55191 Intravenou 1318 781 370-500 mL) 16:50: 16:50 s, ONCE, 1 injection 00 :00 dose, On 100 mL 10/15/21 at 1200, Routine predniSONE Yes [id number] 5mg Take 1 N PI:183 5 mg tablet 3-02 tablet by [id number] 00:00: mouth 00 daily. predniSONE Yes [id number] 5mg Take 1 N PI:183 5 mg tablet 3-02 tablet by [id number] 00:00: mouth 00 daily. predniSONE Yes [id number] 5mg Take 1 N PI:183 5 mg tablet 3-02 tablet by [id number] 00:00: mouth 00 daily. PREDNISONE Yes [id number] TAKE 1 N PI:183 5 mg tablet 1-14 TABLET BY [id number] 00:00: MOUTH 00 EVERY DAY PREDNISONE Yes [id number] TAKE 1 N PI:183 5 mg tablet 1-14 TABLET BY 131 [id number] 00:00: MOUTH 00 EVERY DAY PREDNISONE 2021- No [id number] TAKE 1 NPI:183 5 mg tablet 1-14 -02 TABLET BY 13 [id number] 00:00: 16:49 MOUTH 00 :03 EVERY DAY predniSONE 2021- No [id number] 40mg Take 2 NPI:183 20 mg 07-19 [id number] tablets [place] [id number] 81 tablet 00:00: 05:59 mouth 00 :00 daily for 5 days. dexamethaso 2021- No 10mg 10 mg, NPI :183 ne 07-18 Oral, [id number] (DECADRON 19:30: 18:54 ONCE, 1 PHOSPHATE) 00 :00 dose, On injection Wed 10 mg 07/18/21 at 1330, VIKAS ibuprofen 2021- No 600mg 600 mg, NPI :183 (IBU) 07-18 Oral, [id number] tablet 600 18:30: 18:00 ONCE, 1 mg 00 :00 dose, On 07/18/21 at 1230, VIKAS HYDROcodone 2021- No 1{tbl} 1 tablet, NPI:183 -acetaminop 07-18 Oral, [id number] 1 hen (NORCO) 18:30: 18:00 ONCE, 1 10-325 mg 00 :00 dose, On tablet 1 Wed tablet 07/18/21 at 1230, Routine ibuprofen 2021-0 Yes [id number] 800mg Take 1 NPI:183 800 mg -12 014715 tablet by [id number] 1 tablet 00:00: mouth 00 every 6 (six) hours as needed for Pain (scale 4-6) for up to 24 doses. traMADoL 50 2021-0 Yes [id number] 50mg Take 1 NPI: 183 mg tablet -12 tablet by [id number] 81 00:00: mouth 00 every 8 (eight) hours as needed for Pain (scale 7-10) for up to 12 doses. Indication s: acute pain ibuprofen 2021-0 Yes [id number] 800mg Take 1 NPI:183 800 mg - 026322 tablet by [id number] 1 tablet 00:00: mouth 00 every 6 (six) hours as needed for Pain (scale 4-6) for up to 24 doses. traMADoL 50 2021-0 Yes [id number] 50mg Take 1 NPI: 183 mg tablet -12 tablet by [id number] 81 00:00: mouth 00 every 8 (eight) hours as needed for Pain (scale 7-10) for up to 12 doses. Indication s: acute pain ibuprofen 2021-0 Yes [id number] 800mg Take 1 NPI:183 800 mg -12 [id number] tablet by [id number] 1 tablet 00:00: mouth 00 every 6 (six) hours as needed for Pain (scale 4-6) for up to 24 doses. traMADoL 50 2021-0 Yes [id number] 50mg Take 1 NPI: 183 mg tablet 1-12 tablet by [id number] 81 00:00: mouth 00 every 8 (eight) hours as needed for Pain (scale 7-10) for up to 12 doses. Indication s: acute pain ibuprofen 2021-0 Yes [id number] 800mg Take 1 NPI:183 800 mg 1-12 [id number] tablet by [id number] 1 tablet 00:00: mouth 00 every 6 (six) hours as needed for Pain (scale 4-6) for up to 24 doses. traMADoL 50 2021-0 Yes [id number] 50mg Take 1 NPI: 183 mg tablet 1-12 tablet by [id number] 81 00:00: mouth 00 every 8 (eight) hours as needed for Pain (scale 7-10) for up to 12 doses. Indication s: acute pain ibuprofen Yes [id number] 800mg Take 1 NPI:183 800 mg 1-12 [id number] tablet by [id number] 1 tablet 00:00: mouth 00 every 6 (six) hours as needed for Pain (scale 4-6) for up to 24 doses. traMADoL 50 Yes [id number] 50mg Take 1 NPI: 183 mg tablet 1-12 tablet by [id number] 81 00:00: mouth 00 every 8 (eight) hours as needed for Pain (scale 7-10) for up to 12 doses. Indication s: acute pain allopurinoL 2020-07 Yes [id number] 100mg Take 1 NPI:183 100 mg 2-09 tablet by [id number] tablet 00:00: mouth 00 daily. allopurinoL 2020-07 Yes [id number] 100mg Take 1 NPI:183 100 mg 2-09 tablet by [id number] tablet 00:00: mouth 00 daily. allopurinoL 2020-07 Yes [id number] 100mg Take 1 NPI:183 100 mg 2-09 tablet by [id number] tablet 00:00: mouth 00 daily. allopurinoL 2020-07 Yes [id number] 100mg Take 1 NPI:183 100 mg 2-09 tablet by [id number] tablet 00:00: mouth 00 daily. allopurinoL 2020-07 Yes [id number] 100mg Take 1 NPI:183 100 mg 2-09 tablet by [id number] tablet 00:00: mouth 00 daily. allopurinoL 2020-07 Yes [id number] 100mg Take 1 NPI:183 100 mg 2-09 tablet by [id number] tablet 00:00: mouth 00 daily. allopurinoL 2020-07 Yes [id number] 100mg Take 1 NPI:183 100 mg 2-09 tablet by [id number] tablet 00:00: mouth 00 daily. allopurinoL 2020-07 Yes [id number] 100mg Take 1 NPI:183 100 mg 2-09 tablet by [id number] tablet 00:00: mouth 00 daily. traMADoL 50 2020-07 Yes [id number] 50mg Take 1 NPI: 183 mg tablet 1-17 tablet by [id number] 81 00:00: mouth 00 every 6 (six) hours as needed for Pain (scale 4-6). Indication s: acute pain traMADoL 50 2020-07 Yes 4647 50mg Take 1 NPI: 183 mg tablet 1-17 tablet by [id number] 81 00:00: mouth 00 every 6 (six) hours as needed for Pain (scale 4-6). Indication s: acute pain traMADoL 50 2020-07 Yes 4647 50mg Take 1 NPI: 183 mg tablet 1-17 tablet by [id number] 81 00:00: mouth 00 every 6 (six) hours as needed for Pain (scale 4-6). Indication s: acute pain traMADoL 50 2020-07 Yes 4647 50mg Take 1 NPI: 183 mg tablet 1-17 tablet by [id number] 81 00:00: mouth 00 every 6 (six) hours as needed for Pain (scale 4-6). Indication s: acute pain traMADoL 50 2020-07 Yes 4647 50mg Take 1 NPI: 183 mg tablet 1-17 tablet by [id number] 00:00: mouth 00 every 6 (six) hours as needed for Pain (scale 4-6). Indication s: acute pain traMADoL 50 2020-07 Yes 4647 50mg Take 1 NPI: 183 mg tablet 1-17 tablet by [id number] 81 00:00: mouth 00 every 6 (six) hours as needed for Pain (scale 4-6). Indication s: acute pain traMADoL 50 2020-07 Yes 4647 50mg Take 1 NPI: 183 mg tablet 1-17 tablet by [id number] 81 00:00: mouth 00 every 6 (six) hours as needed for Pain (scale 4-6). Indication s: acute pain traMADoL 50 2020-07 Yes 4647 50mg Take 1 NPI: 183 mg tablet 1-17 tablet by [id number] 81 00:00: mouth 00 every 6 (six) hours as needed for Pain (scale 4-6). Indication s: acute pain traMADoL 50 2020-07 Yes 4647 50mg Take 1 NPI: 183 mg tablet 1-17 tablet by [id number] 81 00:00: mouth 00 every 6 (six) hours as needed for Pain (scale 4-6). Indication s: acute pain traMADoL 50 2020-07 Yes 4647 50mg Take 1 NPI: 183 mg tablet 1-17 tablet by [id number] 81 00:00: mouth 00 every 6 (six) hours as needed for Pain (scale 4-6). Indication s: acute pain traMADoL 50 2020-07 Yes 4647 50mg Take 1 NPI: 183 mg tablet 1-17 tablet by [id number] 81 00:00: mouth 00 every 6 (six) hours as needed for Pain (scale 4-6). Indication s: acute pain traMADoL 50 2020-07 Yes 4647 50mg Take 1 NPI: 183 mg tablet 1-17 tablet by [id number] 00:00: mouth 00 every 6 (six) hours as needed for Pain (scale 4-6). Indication s: acute pain traMADoL 50 2020-07 Yes 4647 50mg Take 1 NPI: 183 mg tablet 1-17 tablet by [id number] 81 00:00: mouth 00 every 6 (six) hours as needed for Pain (scale 4-6). Indication s: acute pain predniSONE 2020-07- No [id number] 5mg Take 1 NPI:183 5 mg tablet 07-15 tablet by 13 [id number] 00:00: 00:00 mouth 00 :00 daily for 60 days. predniSONE 2020-07- No [id number] 5mg Take 1 NPI:183 5 mg tablet 07-15 tablet by 13 [id number] 00:00: 05:59 mouth 00 :00 daily for 60 days. predniSONE 2020-07- No [id number] 5mg Take 1 NPI:183 5 mg tablet 07-15 tablet by 13 [id number] 00:00: 05:59 mouth 00 :00 daily for 60 days. predniSONE 2020-07- No [id number] 5mg Take 1 NPI:183 5 mg tablet 07-15 tablet by 13 [id number] 00:00: 05:59 mouth 00 :00 daily for 60 days. predniSONE 2020-07- No [id number] 5mg Take 1 NPI:183 5 mg tablet 07-15 tablet by 13 [id number] 00:00: 05:59 mouth 00 :00 daily for 60 days. predniSONE 2020-07- No [id number] 5mg Take 1 NPI:183 5 mg tablet 07-15 tablet by 13 [id number] 00:00: 05:59 mouth 00 :00 daily for 60 days. predniSONE 2020-07- No [id number] 5mg Take 1 NPI:183 5 mg tablet 07-15 tablet by 13 [id number] 00:00: 05:59 mouth 00 :00 daily for 60 days. predniSONE 2020-07- No [id number] 5mg Take 1 NPI:183 5 mg tablet 07-15 tablet by 13 [id number] 00:00: 05:59 mouth 00 :00 daily for 60 days. colchicine 2020-0 Yes .6mg Take 0.6 NPI :183 (MITIGARE) 2-08 mg by [id number] 0.6 mg Cap 00:00: mouth 00 daily. colchicine 2020-0 Yes .6mg Take 0.6 NPI :183 (MITIGARE) 2-08 mg by [id number] 0.6 mg Cap 00:00: mouth 00 daily. colchicine 2020-0 Yes .6mg Take 0.6 NPI :183 (MITIGARE) 2-08 mg by [id number] 0.6 mg Cap 00:00: mouth 00 daily. colchicine 2020-0 Yes .6mg Take 0.6 NPI :183 (MITIGARE) 2-08 mg by [id number] 0.6 mg Cap 00:00: mouth 00 daily. colchicine 2020-0 Yes .6mg Take 0.6 NPI :183 (MITIGARE) 2-08 mg by [id number] 0.6 mg Cap 00:00: mouth 00 daily. colchicine 2020-0 Yes .6mg Take 0.6 NPI :183 (MITIGARE) 2-08 mg by [id number] 0.6 mg Cap 00:00: mouth 00 daily. colchicine 2020-0 Yes .6mg Take 0.6 NPI :183 (MITIGARE) 2-08 mg by [id number] 0.6 mg Cap 00:00: mouth 00 daily. colchicine 2020-0 Yes .6mg Take 0.6 NPI :183 (MITIGARE) 2-08 mg by [id number] 0.6 mg Cap 00:00: mouth 00 daily. colchicine 2020-0 Yes .6mg Take 0.6 NPI :183 (MITIGARE) 2-08 mg by [id number] 0.6 mg Cap 00:00: mouth 00 daily. colchicine 2020-0 Yes .6mg Take 0.6 NPI :183 (MITIGARE) 2-08 mg by [id number] 0.6 mg Cap 00:00: mouth 00 daily. colchicine 2020-0 Yes .6mg Take 0.6 NPI :183 (MITIGARE) 2-08 mg by [id number] 0.6 mg Cap 00:00: mouth 00 daily. colchicine 2020-0 Yes .6mg Take 0.6 NPI :183 (MITIGARE) 2-08 mg by [id number] 0.6 mg Cap 00:00: mouth 00 daily. colchicine 2020-0 Yes .6mg Take 0.6 NPI :183 (MITIGARE) 2-08 mg by [id number] 0.6 mg Cap 00:00: mouth 00 daily. allopurinoL 2020-0 Yes [id number] 100mg Take 1 NPI:183 100 mg 2-01 tablet by [id number] tablet 00:00: mouth 00 daily. allopurinoL 2020-0 Yes [id number] 100mg Take 1 NPI:183 100 mg 2-01 tablet by [id number] tablet 00:00: mouth 00 daily. allopurinoL 2020-0 Yes [id number] 100mg Take 1 NPI:183 100 mg 2-01 tablet by [id number] tablet 00:00: mouth 00 daily. allopurinoL 2020-0 Yes [id number] 100mg Take 1 NPI:183 100 mg 2-01 tablet by [id number] tablet 00:00: mouth 00 daily. allopurinoL 2020-0 Yes [id number] 100mg Take 1 NPI:183 100 mg 2-01 tablet by [id number] tablet 00:00: mouth 00 daily. allopurinoL 2020-0 2021- No [id number] 100mg Take 1 NPI:183 100 mg 2-01 12-09 tablet by [id number] tablet 00:00: 00:00 mouth 00 :00 daily. naproxen 2020-0 Yes 500mg Take 500 NPI: 183 500 mg 1-26 mg by [id number] tablet 10:33: mouth at 34 bedtime. naproxen 2020-0 Yes 500mg Take 500 NPI: 183 500 mg 1-26 mg by [id number] tablet 10:33: mouth at 34 bedtime. naproxen 2020-0 Yes 500mg Take 500 NPI: 183 500 mg 1-26 mg by [id number] tablet 10:33: mouth at 34 bedtime. naproxen 2021-0 Yes 500mg Take 500 NPI: 183 500 mg 1-26 mg by [id number] tablet 10:33: mouth at 34 bedtime. naproxen 2021-0 Yes 500mg Take 500 NPI: 183 500 mg 1-26 mg by [id number] tablet 10:33: mouth at 34 bedtime. naproxen 2021-0 Yes 500mg Take 500 NPI: 183 500 mg 1-26 mg by [id number] tablet 10:33: mouth at 34 bedtime. naproxen 2021-0 Yes 500mg Take 500 NPI: 183 500 mg 1-26 mg by [id number] tablet 10:33: mouth at 34 bedtime. naproxen 2021-0 Yes 500mg Take 500 NPI: 183 500 mg 1-26 mg by [id number] tablet 10:33: mouth at 34 bedtime. naproxen 2021-0 Yes 500mg Take 500 NPI: 183 500 mg 1-26 mg by [id number] tablet 10:33: mouth at 34 bedtime. naproxen 1-0 Yes 500mg Take 500 NPI: 183 500 mg 1-26 mg by [id number] tablet 10:33: mouth at 34 bedtime. naproxen 2021-0 Yes 500mg Take 500 NPI: 183 500 mg 1-26 mg by [id number] tablet 10:33: mouth at 34 bedtime. naproxen 1-0 Yes 500mg Take 500 NPI: 183 500 mg 1-26 mg by [id number] tablet 10:33: mouth at 34 bedtime. naproxen 1-0 Yes 500mg Take 500 NPI: 183 500 mg 1-26 mg by [id number] tablet 10:33: mouth at 34 bedtime. colchicine 2020- Yes [id number] .6mg Take 0.6 NPI:183 0.6 mg Cap 2-29 mg by [id number] 00:00: mouth 2 00 (two) times daily. colchicine 2020- Yes [id number] .6mg Take 0.6 NPI:183 0.6 mg Cap 2-29 mg by [id number] 00:00: mouth 2 00 (two) times daily. colchicine 2020- Yes [id number] .6mg Take 0.6 NPI:183 0.6 mg Cap 2-29 mg by [id number] 00:00: mouth 2 00 (two) times daily. colchicine 2019-07 Yes [id number] .6mg Take 0.6 NPI:183 0.6 mg Cap 2-29 mg by [id number] 00:00: mouth 2 00 (two) times daily. colchicine 2019-07 Yes [id number] .6mg Take 0.6 NPI:183 0.6 mg Cap 2-29 mg by [id number] 00:00: mouth 2 00 (two) times daily. colchicine 2019-07 Yes [id number] .6mg Take 0.6 NPI:183 0.6 mg Cap 2-29 mg by [id number] 00:00: mouth 2 00 (two) times daily. colchicine 2019-07 Yes [id number] .6mg Take 0.6 NPI:183 0.6 mg Cap 2-29 mg by [id number] 00:00: mouth 2 00 (two) times daily. colchicine 2019-07 Yes [id number] .6mg Take 0.6 NPI:183 0.6 mg Cap 2-29 mg by [id number] 00:00: mouth 2 00 (two) times daily. colchicine 2019-07 Yes [id number] .6mg Take 0.6 NPI:183 0.6 mg Cap 2-29 mg by [id number] 00:00: mouth 2 00 (two) times daily. colchicine 2019-07 Yes [id number] .6mg Take 0.6 NPI:183 0.6 mg Cap 2-29 mg by [id number] 00:00: mouth 2 00 (two) times daily. colchicine 2019-07 Yes [id number] .6mg Take 0.6 NPI:183 0.6 mg Cap 2-29 mg by [id number] 00:00: mouth 2 00 (two) times daily. colchicine 2019-07 Yes [id number] .6mg Take 0.6 NPI:183 0.6 mg Cap 2-29 mg by [id number] 00:00: mouth 2 00 (two) times daily. colchicine 2019-07 Yes [id number] .6mg Take 0.6 NPI:183 0.6 mg Cap 2-29 mg by [id number] 00:00: mouth 2 00 (two) times daily. ketorolac 2019-07 Yes [id number] 10mg Take 1 TEST GRADER I:183 10 mg 2-26 tablet by [id number] tablet 00:00: mouth 00 every 6 (six) hours as needed for Pain (scale 4-6) for up to 12 doses. ketorolac 2019- Yes 10mg Take 1 TEST GRADER I:183 10 mg 2-26 tablet by [id number] tablet 00:00: mouth 00 every 6 (six) hours as needed for Pain (scale 4-6) for up to 12 doses. ketorolac 2019-07 Yes 10mg Take 1 TEST GRADER I:183 10 mg 2-26 tablet by [id number] tablet 00:00: mouth 00 every 6 (six) hours as needed for Pain (scale 4-6) for up to 12 doses. ketorolac 2019-07 Yes 10mg Take 1 TEST GRADER I:183 10 mg 2-26 tablet by [id number] tablet 00:00: mouth 00 every 6 (six) hours as needed for Pain (scale 4-6) for up to 12 doses. ketorolac 2019-07 Yes 10mg Take 1 TEST GRADER I:183 10 mg 2-26 tablet by [id number] tablet 00:00: mouth 00 every 6 (six) hours as needed for Pain (scale 4-6) for up to 12 doses. ketorolac 2019-07 Yes 10mg Take 1 TEST GRADER I:183 10 mg 2-26 tablet by [id number] tablet 00:00: mouth 00 every 6 (six) hours as needed for Pain (scale 4-6) for up to 12 doses. ketorolac 2019-07 Yes 10mg Take 1 TEST GRADER I:183 10 mg 2-26 tablet by [id number] tablet 00:00: mouth 00 every 6 (six) hours as needed for Pain (scale 4-6) for up to 12 doses. ketorolac 2019-07 Yes 10mg Take 1 TEST GRADER I:183 10 mg 2-26 tablet by [id number] tablet 00:00: mouth 00 every 6 (six) hours as needed for Pain (scale 4-6) for up to 12 doses. ketorolac 2019-07 Yes 10mg Take 1 TEST GRADER I:183 10 mg 2-26 tablet by [id number] tablet 00:00: mouth 00 every 6 (six) hours as needed for Pain (scale 4-6) for up to 12 doses. ketorolac 2019-07 Yes 10mg Take 1 TEST GRADER I:183 10 mg 2-26 tablet by [id number] tablet 00:00: mouth 00 every 6 (six) hours as needed for Pain (scale 4-6) for up to 12 doses. ketorolac 2020-1 Yes [id number] 10mg Take 1 TEST GRADER I:183 10 mg 2-26 tablet by [id number] tablet 00:00: mouth 00 every 6 (six) hours as needed for Pain (scale 4-6) for up to 12 doses. ketorolac 2020-1 Yes [id number] 10mg Take 1 TEST GRADER I:183 10 mg 2-26 tablet by [id number] tablet 00:00: mouth 00 every 6 (six) hours as needed for Pain (scale 4-6) for up to 12 doses. ketorolac 2020-1 Yes [id number] 10mg Take 1 TEST GRADER I:183 10 mg 2-26 tablet by [id number] tablet 00:00: mouth 00 every 6 (six) hours as needed for Pain (scale 4-6) for up to 12 doses. levothyroxi 2020-0 Yes [id number] 25ug Take 1 NPI:183 ne 25 mcg 9-28 [place] [id number] 81 tablet 00:00: mouth 00 every morning. levothyroxi 2020-0 Yes [id number] 25ug Take 1 NPI:183 ne 25 mcg 9-28 tablet by [id number] tablet 00:00: mouth 00 every morning. levothyroxi 2020-0 Yes [id number] 25ug Take 1 NPI:183 ne 25 mcg 9-28 tablet [place] [id number] 81 tablet 00:00: mouth 00 every morning. levothyroxi 2020-0 Yes [id number] 25ug Take 1 NPI:183 ne 25 mcg 9-28 [place] [id number] tablet 00:00: mouth 00 every morning. levothyroxi 2020-0 Yes [id number] 25ug Take 1 NPI:183 ne 25 mcg 9-28 [place] [id number] 81 tablet 00:00: mouth 00 every morning. levothyroxi 2020-0 Yes [id number] 25ug Take 1 NPI:183 ne 25 mcg 9-28 tablet [place] [id number] 81 tablet 00:00: mouth 00 every morning. levothyroxi 2020-0 Yes [id number] 25ug Take 1 NPI:183 ne 25 mcg 9-28 [place] [id number] 81 tablet 00:00: mouth 00 every morning. levothyroxi 2020-0 Yes [id number] 25ug Take 1 NPI:183 ne 25 mcg 9-28 [place] [id number] 81 tablet 00:00: mouth 00 every morning. levothyroxi 2020-0 Yes [id number] 25ug Take 1 NPI:183 ne 25 mcg 9-28 [place] [id number] 81 tablet 00:00: mouth 00 every morning. levothyroxi 2020-0 Yes [id number] 25ug Take 1 NPI:183 ne 25 mcg 9-28 [place] [id number] 81 tablet 00:00: mouth 00 every morning. levothyroxi 2020-0 Yes [id number] 25ug Take 1 NPI:183 ne 25 mcg 9-28 tablet [place] [id number] 81 tablet 00:00: mouth 00 every morning. levothyroxi 2020-0 Yes [id number] 25ug Take 1 NPI:183 ne 25 mcg 9-28 [place] [id number] 81 tablet 00:00: mouth 00 every morning. levothyroxi 2020-0 Yes [id number] 25ug Take 1 NPI:183 ne 25 mcg 9-28 tablet [place] [id number] 81 tablet 00:00: mouth 00 every morning. ergocalcife 2020-0 Yes [id number] Take NPI: 183 rol, 9-17 50,056 [id number] vitamin d2, 13:57: Units by (VITAMIN 34 mouth D2) 50,000 weekly. unit capsule ergocalcife 2020-0 Yes [id number] Take NPI: 183 rol, 9-17 50,962 [id number] vitamin d2, 13:57: Units by (VITAMIN 34 mouth D2) 50,000 weekly. unit capsule ergocalcife 2020-0 Yes [id number] Take NPI: 183 rol, 9-17 50,280 [id number] vitamin d2, 13:57: Units by (VITAMIN 34 mouth D2) 50,000 weekly. unit capsule ergocalcife 2020-0 Yes [id number] Take NPI: 183 rol, 9-17 50,887 [id number] vitamin d2, 13:57: Units by (VITAMIN 34 mouth D2) 50,000 weekly. unit capsule ergocalcife 2020-0 Yes [id number] Take NPI: 183 rol, 9-17 50,299 [id number] vitamin d2, 13:57: Units by (VITAMIN 34 mouth D2) 50,000 weekly. unit capsule ergocalcife 2020-0 Yes [id number] Take NPI: 183 rol, 9-17 50,206 0884000 vitamin d2, 13:57: Units by (VITAMIN 34 mouth D2) 50,000 weekly. unit capsule ergocalcife 2020-0 Yes [id number] Take NPI: 183 rol, 9-17 50,313 [id number] vitamin d2, 13:57: Units by (VITAMIN 34 mouth D2) 50,000 weekly. unit capsule ergocalcife 2020-0 Yes [id number] Take NPI: 183 rol, 9-17 50,039 0178239 vitamin d2, 13:57: Units by (VITAMIN 34 mouth D2) 50,000 weekly. unit capsule ergocalcife 2020-0 Yes [id number] Take NPI: 183 rol, 9-17 50,461 [id number] vitamin d2, 13:57: Units by (VITAMIN 34 mouth D2) 50,000 weekly. unit capsule ergocalcife 2020-0 Yes [id number] Take NPI: 183 rol, 9-17 50,296 [id number] vitamin d2, 13:57: Units by (VITAMIN 34 mouth D2) 50,000 weekly. unit capsule ergocalcife 2020-0 Yes [id number] Take NPI: 183 rol, 9-17 50,617 2871933 vitamin d2, 13:57: Units by (VITAMIN 34 mouth D2) 50,000 weekly. unit capsule ergocalcife 2020-0 Yes [id number] Take NPI: 183 rol, 9-17 50,425 [id number] vitamin d2, 13:57: Units by (VITAMIN 34 mouth D2) 50,000 weekly. unit capsule ergocalcife 2020-0 Yes [id number] Take NPI: 183 rol, 9-17 50,723 [id number] vitamin d2, 13:57: Units by (VITAMIN 34 mouth D2) 50,000 weekly. unit capsule Diclofenac 2020-0 Yes [id number] Apply to NPI:183 Sodium 9-17 area(s) 2 8942605 (VOLTAREN) 00:00: (two) 1 % gel 00 times daily. Diclofenac 2020-0 Yes [id number] Apply to NPI:183 Sodium 9-17 area(s) 2 6723278 (VOLTAREN) 00:00: (two) 1 % gel 00 times daily. Diclofenac 2020-0 Yes [id number] Apply to NPI:183 Sodium 9-17 area(s) 2 1382515 (VOLTAREN) 00:00: (two) 1 % gel 00 times daily. Diclofenac 2020-0 Yes [id number] Apply to NPI:183 Sodium 9-17 area(s) 2 2415169 (VOLTAREN) 00:00: (two) 1 % gel 00 times daily. Diclofenac 2020-0 Yes [id number] Apply to NPI:183 Sodium 9-17 area(s) 2 1201161 (VOLTAREN) 00:00: (two) 1 % gel 00 times daily. Diclofenac 2020-0 Yes [id number] Apply to NPI:183 Sodium 9-17 area(s) 2 9908629 (VOLTAREN) 00:00: (two) 1 % gel 00 times daily. Diclofenac 2020-0 Yes [id number] Apply to NPI:183 Sodium 9-17 area(s) 2 1382763 (VOLTAREN) 00:00: (two) 1 % gel 00 times daily. Diclofenac 2020-0 Yes [id number] Apply to NPI:183 Sodium 9-17 area(s) 2 8657486 (VOLTAREN) 00:00: (two) 1 % gel 00 times daily. Diclofenac 2020-0 Yes [id number] Apply to NPI:183 Sodium 9-17 area(s) 2 9998197 (VOLTAREN) 00:00: (two) 1 % gel 00 times daily. Diclofenac 2020-0 Yes [id number] Apply to NPI:183 Sodium 9-17 area(s) 2 3301052 (VOLTAREN) 00:00: (two) 1 % gel 00 times daily. Diclofenac 2020-0 Yes [id number] Apply to NPI:183 Sodium 9-17 area(s) 2 6322841 (VOLTAREN) 00:00: (two) 1 % gel 00 times daily. Diclofenac 2020-0 Yes [id number] Apply to NPI:183 Sodium 9-17 area(s) 2 4163376 (VOLTAREN) 00:00: (two) 1 % gel 00 times daily. Diclofenac 2020-0 Yes [id number] Apply to NPI:183 Sodium 9-17 area(s) 2 3216553 (VOLTAREN) 00:00: (two) 1 % gel 00 times daily. atorvastati 2018-1 Yes [id number] 40mg Take 1 NPI:183 n 40 mg 0-04 tablet by [id number] tablet 00:00: mouth 00 every evening. atorvastati 2017-07 Yes [id number] 40mg Take 1 NPI:183 n 40 mg 0-04 tablet by [id number] tablet 00:00: mouth 00 every evening. atorvastati 2017-07 Yes [id number] 40mg Take 1 NPI:183 n 40 mg 0-04 tablet by [id number] tablet 00:00: mouth 00 every evening. atorvastati 2017-07 Yes [id number] 40mg Take 1 NPI:183 n 40 mg 0-04 tablet by [id number] tablet 00:00: mouth 00 every evening. atorvastati 2017-07 Yes [id number] 40mg Take 1 NPI:183 n 40 mg 0-04 tablet by 1030439 tablet 00:00: mouth 00 every evening. atorvastati 2017-07 Yes [id number] 40mg Take 1 NPI:183 n 40 mg 0-04 tablet by [id number] tablet 00:00: mouth 00 every evening. atorvastati 2017-07 Yes [id number] 40mg Take 1 NPI:183 n 40 mg 0-04 tablet by [id number] tablet 00:00: mouth 00 every evening. atorvastati 2017-07 Yes [id number] 40mg Take 1 NPI:183 n 40 mg 0-04 tablet by [id number] tablet 00:00: mouth 00 every evening. atorvastati 2017-07 Yes [id number] 40mg Take 1 NPI:183 n 40 mg 0-04 tablet by [id number] tablet 00:00: mouth 00 every evening. atorvastati 2017-07 Yes [id number] 40mg Take 1 NPI:183 n 40 mg 0-04 tablet by [id number] tablet 00:00: mouth 00 every evening. atorvastati 2017-07 Yes [id number] 40mg Take 1 NPI:183 n 40 mg 0-04 tablet by [id number] tablet 00:00: mouth 00 every evening. atorvastati 2017-07 Yes [id number] 40mg Take 1 NPI:183 n 40 mg 0-04 tablet by [id number] tablet 00:00: mouth 00 every evening. atorvastati 2017-07 Yes [id number] 40mg Take 1 NPI:183 n 40 mg 0-04 tablet by [id number] tablet 00:00: mouth 00 every evening. Vital Signs Vital Name Observation Time Observation Value Comments Source Systolic blood pressure 2021-10-15 17:56:00 108 mm[Hg] Diastolic blood 2021-10-15 17:56:00 70 mm[Hg] NPI:1 [id number] pressure Heart rate 2021-10-15 17:56:00 99 /min NPI:1831 [id number] Body temperature 2021-10-15 17:56:00 36.72 Mayra Respiratory rate 2021-10-15 17:56:00 18 /min Oxygen saturation in 2021-10-15 17:56:00 96 /min Arterial blood by Pulse oximetry Body weight 2021-10-15 15:03:00 52.617 kg NPI:1831 [id number] BMI 2021-10-15 15:03:00 21.22 kg/m2 NPI:1831 [id number] HEIGHT 2021-10-06 08:30:00 157.5 cm WEIGHT 2021-10-06 08:30:00 56.901 kg HEIGHT 2021-10-03 19:55:00 157.5 cm WEIGHT 2021-10-03 19:55:00 56.9 kg HEIGHT 2021-10-06 08:30:00 157.5 cm WEIGHT 2021-10-06 08:30:00 56.901 kg HEIGHT 2021-10-03 19:55:00 157.5 cm WEIGHT 2021-10-03 19:55:00 56.9 kg Systolic blood pressure 2021-07-18 18:59:20 135 mm[Hg] Diastolic blood 2021-07-18 18:59:20 70 mm[Hg] NPI:1 [id number] pressure Heart rate 2021-07-18 18:59:20 81 /min NPI:1831 [id number] Respiratory rate 2021-07-18 18:59:20 16 /min Oxygen saturation in 2021-07-18 18:59:20 100 /min Arterial blood by Pulse oximetry Body temperature 2021-07-18 17:16:00 36.78 Mayra Body weight 2021-07-18 17:16:00 52.617 kg NPI:1831 [id number] BMI 2021-07-18 17:16:00 21.22 kg/m2 NPI:1831 [id number] Procedures Procedure Date / Time Performed Performing Clinician [facility] e CT ABDOMEN PELVIS W 2021-10-15 16:55:53 Carmelo Ang NPI:[id number] CONTRAST XR CHEST 1 VW 2021-10-15 16:14:00 Carmelo Ang NPI:[id number] EKG-12 LEAD 2021-10-15 15:30:16 Carmelo Ang NPI:[id number] URINALYSIS 2021-10-15 15:30:00 Carmelo Ang NPI:[id number] URINE DRUG (IMMUNOASSAY) - 2021-10-15 15:30:00 Carmelo Ang PI:[id number] COMPREHENSIVE DRUG SCREEN W/O REFLEX LIPASE 2021-10-15 15:22:00 Carmelo Ang NPI:[id number] 81 AMMONIA, PLASMA 2021-10-15 15:22:00 Carmelo Ang NPI:[id number] 81 TROPONIN I 2021-10-15 15:22:00 Carmelo Ang NPI:[id number] 81 COMP. METABOLIC PANEL 2021-10-15 15:22:00 Carmelo Ang NPI:18 [id number] ([id number]) ETHANOL 2021-10-15 15:22:00 Carmelo Ang NPI:[id number] 81 CBC WITH DIFF 2021-10-15 15:22:00 Carmelo Ang NPI:[id number] 81 N-TERMINAL PRO-BNP 2021-10-15 15:22:00 Carmelo Ang NPI:[id number] CONSENT/REFUSAL FOR 2021-10-15 15:01:55 Doctor Unassigned, No TEST GRADER I:[id number] DIAGNOSIS AND TREATMENT Name ED SPLINT APPLICATION 2021-07-18 18:51:50 Yana Bhardwaj NPI:18 [id number] XR ANKLE 3+ VW RIGHT 2021-07-18 17:50:00 Yana Bhardwaj NPI:655 [id number] XR FOOT 3+ VW RIGHT 2021-07-18 17:50:00 Yana Bhardwaj NPI:925 [id number] XR KNEE 3 VW RIGHT 2021-07-18 17:50:00 Yana Bhadrwaj NPI:[id number] XR TIBIA FIBULA 2 VW RIGHT 2021-07-18 17:50:00 Yana Bhardwaj PI:[id number] CONSENT/REFUSAL FOR 2021-07-18 17:17:57 Doctor Unassigned, No TEST GRADER I:[id number] DIAGNOSIS AND TREATMENT Name Encounters Start End Encounter Admission Attending Care Care Encounter Source Date/Time Date/Time Type Type Clinicians Facility Department ID 2021-10-20 2021-10-20 [facility]114 [id number] NPI:183 00:00:00 00:00:00 Jackie ULLOA 350.1.13.10 [id number] ARNOLDO 4.2.7.2.686 [place] [id number] [facility] 2021-10-15 2021-10-15 Emergency X [facility] ERT [id number] NPI:183 10:03:00 14:01:00 CARMELO [id number] 1 2021-10-15 2021-10-15 Emergency [facility], [place] 1.2.840.114 [id number] NPI:183 10:03:00 14:01:00 Carmelo D[place] 350.1.13.10 [id number] 4.2.7.2.686 [id number] 2021-10-03 2021-10-06 Inpatient ER SHIEH, [facility] [id number] [facility] 19:13:00 13:10:00 [place] 2021-09-13 2021-09-13 Outpatient Dunia FONSECA [facility] [id number] -[id number] NPI:183 14:45:00 14:45:00 JACKIE [id number] 1 2021-09-13 2021-09-13 Outpatient Dunia [facility] [id number] NPI:183 14:45:00 14:45:00 JACKIE [id number] 1 2021-09-05 2021-09-05 [facility] 1.2.840.114 [id number] NPI:183 00:00:00 00:00:00 Jackie ULLOA 350.1.13.10 [id number] IAJARON 4.2.7.2.686 [place] [id number] [facility] 2021-08-23 2021-08-23 Outpatient R RAYMUNDO [facility] [id number] NPI:183 14:45:00 14:45:00 JACKIE [id number] 1 2021-08-07 2021-08-07 [facility] 1.2.922.159 [id number] NPI:183 00:00:00 00:00:00 Jackie WEBBPEC 350.1.13.10 [id number] IALTY 4.2.7.2.686 [place] [id number] [facility] 2021-07-18 2021-07-18 Emergency X [facility] ERT [id number] NPI:183 11:17:00 13:12:00 YANA [id number] 1 2021-07-18 2021-07-18 Emergency Chelita, [place] 1.2.476.162 [id number] NPI:183 11:17:00 13:12:00 Yana [facility] 350.1.13.10 [id number] 4.2.7.2.686 [id number] 2021-07-11 2021-07-11 [facility] 1.2.840.114 [id number] NPI:183 00:00:00 00:00:00 Jackie WEBBPEC 350.1.13.10 [id number] IALT 4.2.7.2.686 [place] [id number] [facility] 2021-06-21 2021-06-21 Outpatient R [facility] [id number] -[id number] NPI:183 10:15:00 10:15:00 [id number] 1 2021-06-21 2021-06-21 [facility] [id number] NPI:183 10:15:00 10:15:00 JOSE [id number] 1 2021-06-21 2021-06-21 [facility] 1.2.121.401 [id number] NPI:183 00:00:00 00:00:00 Jackie A MULTISPEC 350.1.13.10 [id number] IALTY 4.2.7.2.686 [place] [id number] [facility] 2021-06-14 2021-06-14 Nohelia Ward [facility] 1.2.840.114 [id number] NPI:183 00:00:00 00:00:00 MULTISPEC 350.1.13.10 [id number] IALTY 4.2.7.2.686 [place] [id number] [facility] 2021-06-13 2021-06-13 [facility] [id number] NPI:183 14:00:00 14:00:00 GELY [id number] 1 2021-06-11 2021-06-11 [facility] 1.2.840.114 [id number] NPI:183 00:00:00 00:00:00 [employer] 350.1.13.10 13 [id number] [place] 4.2.7.2.686 BHAVIN?BLEA [id number] [place] [address] [facility] 2021-06-08 2021-06-08 [facility] 1.2.840.114 [id number] NPI:183 00:00:00 00:00:00 [employer] 350.1.13.10 13 [id number] [facility] 4.2.7.2.686 BHAVIN?BLEA [id number] [place] [address] [facility] 2021-06-04 2021-06-04 Telephone [facility] 1.2.354.053 [id number] NPI:183 00:00:00 00:00:00 Jackie Chávez MULTISPEC 350.1.13.10 [id number] IALTY 4.2.7.2.686 [place] [id number] [facility] 2021-05-28 2021-05-28 [facility] [id number] NPI:183 15:00:00 15:30:46 GELY [id number] 1 2021-05-28 2021-05-28 [facility] 1.2.069.760 [id number] NPI:183 14:55:29 15:30:46 Visit Gely [facility] 350.1.13.10 13 [id number] [facility] 4.2.7.2.686 BHAVIN?BLEA [id number] [place] 198 [facility] 2021-05-23 2021-05-23 Outpatient Edwin COLLINS [facility] ERT [id number] NPI:183 16:09:19 16:09:19 [id number] 1 2021-05-14 2021-05-14 [facility] [id number] NPI:183 13:30:00 13:30:00 JACKIE [id number] 1 2021-04-19 2021-04-19 [facility]patient [facility] [id number] NPI:183 15:15:00 15:15:00 JACKIE [id number] 1 2020-11-20 2020-11-20 Letter [place], [facility] 1.2.840.114 [id number] 00:00:00 00:00:00 (Out) Nephrology [facility] 350.1.13.10 [facility]INICS 4.2.7.2.686 [id number] 2020-08-14 2020-08-14 [facility] 1.2.841.838 [id number] 00:00:00 00:00:00 Jose MULTISPEC 350.1.13.10 Betsycamelia [place] 4.2.7.2.686 C[facility] [id number] [facility] 2020-07-20 2020-07-20 Orders Doctor CARMELO 1.2.840.114 [id number] 00:00:00 00:00:00 Only Unassigned, DEE 350.1.13.10 [facility] 4.2.7.2.686 [id number] Results Test Description Test Time Test Comments Results Result Comments Source CBC WITH DIFF 2021-10-15 16:46:30 Test Item Value Reference Range Interpretation Comme nts WBC (test code = 6690-2) See_Comment [A utomated message] The system which ge nerated this [...] 34.7 g/dL 31.6-35.1 RDW-SD (test code = 73369-6) 72.0 fL 39.0-49.9 H RDW-CV (test code = 788-0) 17.3 % 12.0-15.5 H PLT (test code = 777-3) See_Comment L [Au tomated message] The system which ge nerated this result transmit ora reference range: 166 - 35 8 10*3/?L. The reference range was not used to interpret th is result as normal/abnormal . MPV (test code = 69998-4) 9.9 fL 9.5-12.9 IPF % (test code = 2.4 % 1.3-7.7 Platelet count measured by 6406365057) fluorescence me thod. NRBC/100 WBC (test code = See_Comment [ Automated message] The 0209498200) system which [employer] nerated this result transmit ora reference range: 0.0 - 10 .0 /100 WBCs. The reference r marcial was not used to interpr et this result as normal/abnor mal. NRBC x10^3 (test code = <0.01 See_Comment [Au tomated message] The 2658236237) system which [employer] nerated this result transmit ora reference range: 10*3/?L. The reference range was not u sed to interpret this result as normal/abnormal . GRAN MAT (NEUT) % (test code 43.6 % = 770-8) IMM GRAN % (test code = 0.90 % 5079926013) LYMPH % (test code = 736-9) 41.6 % MONO % (test code = 5905-5) 12.2 % EOS % (test code = 713-8) 0.8 % BASO % (test code = 706-2) 0.9 % GRAN MAT x10^3(ANC) (test 4.04 10*3/uL 1.88-7.09 code = 2277354838) IMM GRAN x10^3 (test code = 0.08 10*3/uL 0.00-0.06 H 6974824776) LYMPH x10^3 (test code = 3.84 10*3/uL 1.32-3.29 H 731-0) MONO x10^3 (test code = 1.13 10*3/uL 0.33-0.92 H 742-7) EOS x10^3 (test code = 0.07 10*3/uL 0.03-0.39 711-2) BASO x10^3 (test code = 0.08 10*3/uL 0.01-0.07 H 704-7) TARGET CELLS (test code = 2+ See_Comment A [ Automated message] The 67267-0) system which ge nerated this result transmit ora reference range: (none). The reference range was not u sed to interpret this result as normal/abnormal . Lab Interpretation (test Abnormal code = 40387-8) NPI:[id number] [id number] 16:07:17 Test Item Value Reference Interpretation Comments Range TROPONIN I (test 0.008 ng/mL See_Comment [Automated code = 4624758233) message] The system which generated this result [...] biotin. Lab Interpretation Normal (test code = 78724-6) NPI:[id number]-RHRZAFQR [id number] 16:07:17 Test Item Value Reference Range Interpretation Comments NT-proBNP (test code 68 pg/mL See_Comment [Autom ated = 5806511741) message] The system which generated this result transmitted reference range : <=125. The reference range was not used to interpret this result as normal/abnormal . LUZ (test code = LUZ) Biotin has been reported to cause a negative bias, interpret results relative to patient's use of biotin. Lab Interpretation Normal (test code = 82742-4) NPI:[id number] 15:54:14 Test Item Value Reference Range Interpretation Comments LIPASE (test code = 8121554264) 95 U/L 0-220 Lab Interpretation (test code = Normal 25134-9) NPI:[id number] 15:54:14 Test Item Value Reference Range Interpretation Comments ALCOHOL (test code = 241 mg/dL 9000414316) LUZ (test code = Toxic Greater than or LUZ) equal to 80 mg/dL. NOTE: Whole blood values are approximately 10% to 15% lower than serum and plasma. NPI:[id number]. METABOLIC PANEL (75622)2021-10-15 15:54:13 Test Item Value Reference Range Interpretation Comments NA (test code = 142 mmol/L 135-145 9038381754) K (test code = 4.5 mmol/L 3.5-5.0 Slight 4016573039) hemolysis CL (test code = 112 mmol/L 98-108 H 3373749540) CO2 TOTAL (test code 22 mmol/L 23-31 L = 1010807347) AGAP (test code = 2-16 7340624616) BUN (test code = 8 mg/dL 7-23 Slight 1319131684) hemolysis GLUCOSE (test code = 75 mg/dL 70-110 2641117600) CREATININE (test code 0.80 mg/dL 0.50-1.04 = 8669507972) TOTAL BILI (test code 2.3 mg/dL 0.1-1.1 H = 5443599392) CALCIUM (test code = 8.0 mg/dL 8.6-10.6 L 1014876901) T PROTEIN (test code 6.5 g/dL 6.3-8.2 = 8390630376) ALBUMIN (test code = 3.3 g/dL 3.5-5.0 L 6218659820) ALK PHOS (test code = 113 U/L 34-122 Slight 4197063059) hemolysis ALTv (test code = 91 U/L 5-35 H 1742-6) AST(SGOT) (test code 188 U/L 13-40 H Slight = 5461856440) hemolysis eGFR (test code = mL/min/1.73m2 4255503107) LUZ (test code = LUZ) Association of [...] tests). Lab Interpretation Abnormal (test code = 17890-0) NPI:[id number], [id number] 15:45:52 Test Item Value Reference Range Interpretation Comments AMMONIA (test code = 19 umol/L 9-33 Slight hemolysis 5712399539) Lab Interpretation (test Normal code = 46634-1) NPI:[id number] METABOLIC [id number] 07:24:44 Test Item Value Reference Range Interpretation [...] S NOT APPLICABLE FOR DIALYSIS PATIEN TS. [employer] ID - [id number] ID - [id number] ID - [id number] ID - [id number] ID - [id number] ID - [id number] ID - TGRXO432Msuvhrpi ID - HOFNO086Rnnoovgj ID - PHWRZ791Zoxuwyfj ID - NPXWW328Hlymfvyx ID - EQBVI773Ezcrdyky ID - FZDFO919Ktasdtim ID - XNEYP458Rlgxuzqh ID - [id number] ID - DEUPB259Aaqdcdlz ID - [id number] slightly ictericCBC W/PLT COUNT & AUTO DIFFERENTIAL [...] H PERCENT (BEAKER) (test code = 2801) [id number] 07:18:14 Test Item Value Reference Range Interpretation Comments MAGNESIUM (BEAKER) (test code = 2.0 mg/dL 1.5-3.0 627) [employer] ID - [id number] ID - [id number] ID - [id number] ID - [id number]/S, ABDOMINAL, [id number] 11:11:00Labs to be ordered:->Body Fluid Culture (w/Gram Stain, C\\T\\S) Labs to be ordered:->Cell Count Reason for exam:->Diagnostic/Therapeutic [facility] : 1960 Sex: FFINAL REPORT TECHNIQUE: Grayscale ultrasound of the 4 abdominal quadrants.INDICATION: Evaluate for ascites. COMPARISON: None. DISCUSSION/IMPRESSION: Minimal fluid seen in the right lower quadrant. No other free fluid identified within the abdomen. Fluid volume too small for paracentesis. Recommend short interval reassessment for fluid accumulation. Signed: Santiago Tracy MDRdavid Verified Date/Time: 10/05/2021 11:11:37 Reading Location: [facility] Radiology Reading Room CBC W/PLT COUNT & AUTO [id number] 07:59:21 Test Item Value Reference Range Interpretation [...] (BEAKER) (test code Normal = 762) SARS-COV2/RT-PCR ([facility])2021-10-05 07:56:40 Test Item Value Reference Range Interpretation Comments SARS-COV2/RT-PCR Negative Negative The SARS-Co V-2 target (test code = nucleic acids a re not 9652913) detected in thi s specimen. Negative result [...] rapid, real-william e RT-PCR test intended for th e qualitative detection of nu cleic acid from SARS-CoV-2 in a nasopharyngeal swab specimen collected from individuals suspected of CO VID-19 by their healthcar e provider. This test has been authorized [...] revoked sooner. Fact Sheet for Healthcare Providers: https://www.[employer]/Documents/Xpert%20Xpress%20SARS%20CoV-2/Fact%20Sheets/302-3802%20SARS-COV -2%20HEALTHCARE%20PROVIDERS%20FACT%20SHEET.pdf Fact Sheet for Healthcare Patients: https://www.[employer]/Documents/Xpert %20Xpress%20SARS%20CoV-2/Fact%20Sheets/302-3801%43FOJP-XIU-3%20PATIENT%20FACT%20 SHEET.pdfCOMPREHENSIVE METABOLIC [id number] 06:22:26 Test Item Value Reference Range Interpretation [...] S NOT APPLICABLE FOR DIALYSIS PATIEN TS. [employer] ID - [id number] ID - [id number] ID - [id number] ID - DYVK07Ulbwunif ID - XMRC54Rhtgvscv ID - JVON48Ehjcrfem ID - IXUJ73Ipucrhja ID - IAFC61Ibxqenhi ID - MUDZ88Zjlrgsje ID - AYXQ81Dwfhlbpz ID - LJOO18Fhbsanyr ID - UVYI38Dpowmlmp ID - SIJE46Lawindtz ID - ILPI42Lbxcqpmk ID - CYWV87Ictffbio ID - [id number] moderately [id number] 06:21:51 Test Item Value Reference Range Interpretation Comments LIPASE (BEAKER) (test code = 749) 7 U/L 6-51 [employer] ID - [id number] ID - [id number] ID - WIWS26Fdscyrxz ID - [id number] moderately [id number] 06:20:49 Test Item Value Reference Range Interpretation Comments MAGNESIUM (BEAKER) (test code = 1.8 mg/dL 1.5-3.0 627) [employer] ID - [id number] W/ REFLEX URINE [id number] 19:14:37 Test Item Value Reference Range Interpretation Comments COLOR (BEAKER) (test code = 470) Fisher CLARITY (BEAKER) (test code = 469) Clear [...] SOURCE(BEAKER) (test code = 2795) HEMOGLOBIN AND [id number] 13:36:11 Test Item Value Reference Range Interpretation Comments HEMOGLOBIN (BEAKER) (test code = 8.6 GM/DL 12.0-15.5 L 410) HEMATOCRIT (BEAKER) (test code = 25.6 % 36.0-46.0 L 411) VITAMIN B12 AND [id number] 10:56:11 Test Item Value Reference Range Interpretation Comments VITAMIN B12 (BEAKER) 1742 pg/mL 211-911 H (test code = 774) FOLATE (BEAKER) < ng/mL See_Comment L [Automated message] (test code = 362) The system which generated this result transmitted ref erence range: >=5.4. T he reference range was not used to interpr et this result as normal/abnormal . [facility] Steward ID - ONYINYEOperator ID - [id number] 10:48:06 Test Item Value Reference Range Interpretation Comments FERRITIN (BEAKER) (test code = 833.30 ng/mL 10.00-291.00 H 361) [facility] Steward ID - ONJOANNEIRON, TIBC, % SAT. (WITHOUT FERRITIN)2021-10-04 10:21:22 Test Item Value Reference Range Interpretation Comments IRON (BEAKER) (test code = 547) 191.0 ug/dL 45.0-170.0 H TOTAL IRON BINDING CAPACITY 178 ug/dL 250-550 L (BEAKER) (test code = 769) IRON % SATURATION (2) (BEAKER) 107 % 20-55 H (test code = 2590) [facility] Ste[facility] ID - ONYINYEOperator ID - ONYINYEHEMOGLOBIN AND [id number] 07:30:10 Test Item Value Reference Range Interpretation Comments HEMOGLOBIN (BEAKER) (test code = 8.6 GM/DL 12.0-15.5 L 410) HEMATOCRIT (BEAKER) (test code = 25.6 % 36.0-46.0 L 411) TROPONIN [id number] 05:32:48 Test Item Value Reference Range Interpretation [...] failure, acidosis, acute neurological disease, and persistent tachyarrhythmia.[facility] Steward ID - NSUVAGIYAHEMOGLOBIN AND [id number] 05:18:38 Test Item Value Reference Range Interpretation Comments HEMOGLOBIN (BEAKER) (test code = 9.6 GM/DL 12.0-15.5 L 410) HEMATOCRIT (BEAKER) (test code = 27.7 % 36.0-46.0 L 411) COMPREHENSIVE METABOLIC [id number] 00:21:18 Test Item Value Reference Range Interpretation [...] S NOT APPLICABLE FOR DIALYSIS PATIEN TS. [facility] Steward ID - [id number] ID - [id number] ID - [id number] ID - [id number] ID - [id number] ID - [id number] ID - [id number] ID - [id number] ID - [id number] ID - [id number] ID - [id number] ID - [id number] ID - [id number] ID - [id number] ID - [id number] ID - NSUVAGIYAOperator ID - NSUVAGIYAOperator ID - NSUVAGIYAOperator ID - NSUVAGIYAOperator ID - NSUVAGIYAOperator ID - NSUVAGIYAOperator ID - NSUVAGIYAOperator ID -NSUVAGIYAOperator ID - NSUVAGIYAOperator ID - NSUVAGIYAOperator ID - NSUVAGIYAOperator ID - NSUVAGIYAOperator ID - NSUVAGIYAOperator ID - NSUVAGIYAOperator ID - NSUVAGIYAOperator ID - NSUVAGIYASpecimenslightly ictericLIPID [id number] 23:52:38 Test Item Value Reference Range Interpretation Comments TRIGLYCERIDES (BEAKER) (test code = 114 mg/dL 540) CHOLESTEROL (BEAKER) (test code = 110 mg/dL 631) HDL CHOLESTEROL (BEAKER) (test code 20 mg/dL = 976) LDL CHOLESTEROL CALCULATED (BEAKER) 67 mg/dL (test code = 633) Triglyceride Reference Range: Low Risk <150 Borderline 150-199 High Risk 200-499 Very High Risk >=500Cholesterol Reference Range: Low Risk <200 Borderline 200-239 High Risk >240HDL Cholesterol Reference Range: Low Risk >=60 High Risk <40LDL Cholesterol Reference Range: Optimal <100 Near Optimal 100-129 Borderline 130-159 High 160-189 Very High >=190 [facility] Steward ID - [id number] ID - [id number] ID - [id number] slightly ictericTROPONIN [id number] 23:35:43 Test Item Value Reference Range Interpretation Comments TROPONIN I (RAMONAKER) (test code = 397) < ng/mL 0.00-0.15 [...] failure, acidosis, acute neurological disease, and persistent tachyarrhythmia.Union Steward ID - [id number] 2021-10-03 23:29:17 Test Item Value Reference Range Interpretation Comments MAGNESIUM (BEAKER) (test code = 1.3 mg/dL 1.5-3.0 L 627) [facility] Steward ID - [id number] ID - [id number] ID - [id number] ID - [id number] 23:25:42 Test Item Value Reference Range Interpretation Comments PHOSPHORUS (BEAKER) (test code = 3.5 mg/dL 2.5-4.5 604) [facility] Steward ID - [id number] 23:24:22 Test Item Value Reference Range Interpretation Comments PROTIME (BEAKER) 16.1 seconds 9.3-12.0 H Final Infor mation (test code = 759) (Auto Outp ut) INR (BEAKER) (test 1.51 See_Comment Final Inf ormation code = 370) (Auto Output) [Automated mess age] The system [employer] generated this result transmitted ref erence range: [...] 0-0 H PERCENT (BEAKER) (test code = 280)"
--- NOTE | 2021-11-10 20:57 | RAD REPORT ---
EXAM DESCRIPTION: RAD - Chest Single View - 11/10/2021 8:51 pm CLINICAL HISTORY: altered mental status COMPARISON: Chest Single View dated 01/16/2021; Chest Single View dated 12/18/2020 FINDINGS: Lines: None. Lungs: No evidence of edema or pneumonia. Pleural: No significant pleural effusions or pneumothorax. Cardiac: The heart size is within normal limits. Bones: No acute fractures. Other: IMPRESSION: No acute cardiopulmonary disease.
[2021-11-10] MEDS ORDERED: NA CHLORIDE 0.9% 500 ML ONE (22:30)
[2021-11-10 22:33] LABS: Absolute Lymphocytes (CBC) 1.6 K/uL (0.7-4.9); Hematocrit 30.7 % (36.0-45.0); Lymphocytes % 18.2 % (15.3-44.8); MPV 10.4 fL (7.6-11.3); RBC Red Blood Cell Count 2.69 M/uL (3.86-4.86)
[2021-11-10 22:38] LABS: Protime INR 1.66
[2021-11-10 22:53] LABS: Albumin 2.3 g/dL (3.4-5.0); Bilirubin Direct 4.7 mg/dL (0-0.2); Magnesium 2.2 mg/dL (1.8-2.4); Potassium 3.2 mmol/L (3.5-5.1); Protein, Total 6.3 g/dL (6.4-8.2); Troponin High Sensitivity 11.1 pg/mL (<58.9)
[2021-11-10 22:54] LABS: Bilirubin Total 6.3 mg/dL (0.2-1.0)
[2021-11-10 23:19] LABS: Blood Morphology Comment NOTED (NOT SEEN); Macrocytosis 2+; Platelet Estimate ADEQ; White Blood Cell Scan OK (OK)
[2021-11-10 23:20] LABS: Basophilic Stippling 1+; Stomatocytes 1+
--- NOTE | 2021-11-10 23:45 | RAD REPORT ---
EXAM DESCRIPTION: CT - Head C Spine Cap Wo Con - 11/10/2021 11:24 pm CLINICAL HISTORY: Trauma, head and neck injury. Chest, abdomen and pelvis pain. fall COMPARISON: Abdomen Pelvis W Contrast dated 10/03/2021 TECHNIQUE: CT head without contrast. CT cervical spine without contrast with coronal and sagittal reformatted images. CT chest, abdomen and pelvis with coronal and sagittal reformatted images of the spine. All CT scans are performed using dose optimization technique as appropriate and may include automated exposure control or mA/KV adjustment according to patient size. FINDINGS: CT HEAD WITHOUT CONTRAST: No intracranial hemorrhage, hydrocephalus or extra-axial fluid collection. No acute large vascular te rritory infarct. Cerebral atrophy. Mild chronic small vessel ischemic changes. The paranasal sinuses and mastoids are clear. The calvarium is intact. CT CERVICAL SPINE WITHOUT CONTRAST: No fracture or subluxation. The prevertebral soft tissues are normal in thickness.Anterolisthesis C3 on C4 and C4 on C5. Trace re trolisthesis of C5 with respect to C6. Severe neural foraminal narrowing at C4-5 and C5-6. CT CHEST, ABDOMEN, PELVIS: Thorax: Chest Wall: No abnormal mass Lungs: Patchy airspace disease present within the dependent aspect of the lungs. Pleura: No effusions or pneumothorax. Becka/Mediastinum: No lymphadenopathy. Distended esophagus. Small hiatal hernia. Aorta/Pulmonary Arteries: Unremarkable Heart: Normal size. Abdomen/Pelvis: Liver: Cirrhosis. Biliary: Cholecystectomy Stomach: No significant focal abnormality. Duodenum: No significant focal abnormality. Pancreas: No significant abnormality. Spleen: No significant abnormality. Adrenal: No suspicious lesions. Kidney/ureter: No hydronephrosis. No renal calculi. Renal scarring. Retroperitoneum: No retroperitoneal adenopathy. Vascular: No aneurysm. Atherosclerosis. Bowel: No significant focal abnormality. Peritoneum: Paraumbilical hernia. Moderate ascites. Bladder: Decompressed via Lopes catheter. Reproductive: No adnexal masses. Bones: T7 and T10 compression fractures. T10 is chronic. T7 is indeterminate as there is no prior kory ging. Approximately 30% loss of height anteriorly. No bony retropulsion . Sternal deformity at its mi dportion. This is of uncertain significance. Other: Small left rectus sheath hematoma. IMPRESSION: 1. Small left rectus sheath hematoma. Sternal deformity may be developmental or related to remote trauma. No retrosternal hematoma to suggest acute fracture. Age indeterminate T7 compressio n fracture. 2. Dependent airspace disease concerning for aspiration. Fluid/debris present in the esophagus.
[2021-11-10] MEDS ORDERED: CEFTRIAXONE 1000 MG/VIAL ONE (23:56)
[2021-11-10] MEDS ORDERED: KCL 20 MEQ/100 mL IVPB 100 ML IV ONE (23:57)
[2021-11-10] MEDS ORDERED: NA CHLORIDE 0.9% 1,000 ML ONE (23:57)
[2021-11-10] MEDS ORDERED: NA CHLORIDE 0.9% 50 ML ONE (23:57)
[2021-11-11 00:14] LABS: Arterial Blood Carboxyhemoglob 2.2 % (0-1.5); Blood Gas Oxyhemoglobin 89.3 % (94-97); Blood O2 Saturation 92.3 % (92-98.5)
--- NOTE | 2021-11-11 00:25 | ER ---
Nurse's Notes [facility] Name: Selina Hickey Age: 60 yrs Sex: Female : 1960 Arrival Date: 11/10/2021 Time: 20:19 Bed 20 Private MD: Diagnosis: Other pneumonia, unspecified organism;Altered mental status, unspecified;Encephalopathy, unspecified Presentation: 11/10 20:19 Chief complaint: EMS states: We were called because she has been altered since vc1 yesterday and has been sleeping non stop, they found her on the floor last night and she had defecated on herself. Coronavirus screen: Vaccine status: At this time, the client does not indicate any symptoms associated with coronavirus-19. Ebola Screen: No symptoms or risks identified at this time. 20:19 Method Of Arrival: EMS: [facility] vc1 20:19 Initial Sepsis Screen: Does the patient meet any 2 criteria? Temp <36.0*C (96.8*F)) or vc1 > 38.3*C (100.9*F). Systolic BP < 90 mmHg. Yes Does the patient have a suspected source of infection? No. Patient's initial sepsis screen is negative. Risk Assessment: Do you want to hurt yourself or someone else? Patient reports no desire to harm self or others. Onset of symptoms was November 09, 2021. 20:19 Acuity: GABRIEL 2 vc1 Triage Assessment: 20:39 General: Appears distressed, ill, Behavior is flat, listless. Pain: Complains of pain vc1 in back Pain does not radiate. Pain currently is 10 out of 10 on a pain scale. Quality of pain is described as sharp. Neuro: Bedoya Agitation-Sedation Scale (RASS): -2 Light sedation Level of Consciousness is obeys commands, lethargic, obtunded, Oriented to person, place, Weakness Speech is slurred, Facial symmetry appears normal. Cardiovascular: No deficits noted. Respiratory: Airway is patent Respiratory effort is even, unlabored, Respiratory pattern is regular, symmetrical, Hypoventilation while sleeping. GI: No deficits noted. : No deficits noted. Derm: Skin temperature is cool. 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 - Social history:: Smoking status: unknown. Screenin:43 Abuse screen: Denies threats or abuse. Nutritional screening: No deficits noted. vc1 Tuberculosis screening: No symptoms or risk factors identified. Fall Risk Fall in past 12 months (25 points). Secondary diagnosis (15 points) impaired mobility, IV access (20 points). Ambulatory Aid- None/Bed Rest/Nurse Assist (0 pts). Gait- Weak (10 pts.). Mental Status- Oriented to own ability (0 pts). Total Malave Fall Scale indicates High Risk Score (45 or more points). Assessment: 21:00 Reassessment: See triage assessment. vc1 22:00 Reassessment: Patient and/or family updated on plan of care and expected duration. Pain vc1 level reassessed. 23:00 Reassessment: Patient and/or family updated on plan of care and expected duration. Pain vc1 level reassessed. Patient states symptoms have not improved. 11/11 00:00 Reassessment: Patient and/or family updated on plan of care and expected duration. Pain vc1 level reassessed. Patient states symptoms have not improved. 01:00 Reassessment: No changes from previously documented assessment. Patient and/or family vc1 updated on plan of care and expected duration. Pain level reassessed. 02:00 Reassessment: No changes from previously documented assessment. Patient and/or family vc1 updated on plan of care and expected duration. Pain level reassessed. 03:00 Reassessment: No changes from previously documented assessment. Patient and/or family vc1 updated on plan of care and expected duration. Pain level reassessed. 04:00 Reassessment: No changes from previously documented assessment. Patient and/or family vc1 updated on plan of care and expected duration. Pain level reassessed. 04:30 Reassessment: See [facility] for further charting Patient denies pain at this time. vc1 Vital Signs: 11/10 20:19 BP 88 / 74 LA Sitting (auto/); Pulse 79 LA; Resp 12 S; Temp 95.7; Pulse Ox 97% on 2 lpm vc1 NC; Height 5 ft. 2 in. (157.48 cm); Pain 10/10; 22:36 BP 81 / 67; Pulse 76; Pulse Ox 95% on R/A; vc1 22:54 BP 90 / 69; Pulse 82; Resp 15; Pulse Ox 96% on R/A; ld1 23:00 BP 89 / 64; Pulse 75; Resp 9; Pulse Ox 95% 2 lpm ; vc1 23:12 Weight 61.23 kg; vc1 11/11 00:00 BP 111 / 72; Pulse 87; Resp 9; Pulse Ox 94% on 2 lpm NC; vc1 01:00 BP 105 / 81; Pulse 84; Resp 10; Pulse Ox 96% on 2 lpm NC; vc1 02:00 BP 108 / 61; Pulse 95; Resp 10; Pulse Ox 94% on 2 lpm NC; vc1 03:00 BP 89 / 64; Pulse 95; Resp 10; Pulse Ox 92% on R/A; vc1 04:00 BP 83 / 64; Pulse 95; Resp 9; Pulse Ox 100% on Non-rebreather mask; vc1 11/10 23:12 Body Mass Index 24.69 (61.23 kg, 157.48 cm) vc1 ED Course: 11/10 20:19 Patient arrived in ED. mw2 20:23 Reed Garg PA is PHCP. cp 20:23 Darnell Ryan MD is Attending Physician. cp 20:39 Triage completed. vc1 20:43 Arm band placed on right wrist. vc1 20:43 Warm blanket given. vc1 20:44 Patient has correct armband on for positive identification. Bed in low position. Call vc1 light in reach. Client placed on continuous cardiac and pulse oximetry monitoring. NIBP monitoring applied. 20:53 XRAY Chest (1 view) In Process Unspecified. EDMS 22:25 Accessed peripheral vein via ultrasound, utilizing dynamic ultrasound technique bb Powerglide midline 20g 8 cm with good blood return and flushes easily using hospital protocol pt tolerated well. 22:36 Danuta Malcolm, RN is Primary Nurse. vc1 22:53 Lopes cath inserted, using sterile technique, 16 Fr., by product analyst, balloon inflated, to ld1 gravity drainage, returned kenan urine. Patient tolerated well. 22:54 Notified Nurse Practitioner and/or Physician Vise Hand of a critical lab result(s), tawanda chawla 6.3 Reed ORELLANA notified. 23:25 Head C Spine Cap Wo Con In Process Unspecified. EDMS 11/11 00:24 Cosmo Dawn is Hospitalizing Provider. cp 04:30 No provider procedures requiring assistance completed. Patient admitted, IV remains in vc1 place. 09:22 Primary Nurse role handed off by Danuta Malcolm RN 11:05 Marcellus Turner, RN is Primary Nurse. bp 19:20 Primary Nurse role handed off by Marcellus Turner RN 2 20:09 Lidia Jones, TAMIKA is Primary Nurse. kd3 Administered Medications: 11/10 22:27 Drug: NS 0.9% 500 ml Route: IV; Rate: bolus; Site: left upper arm; ld1 11/11 00:02 Drug: Rocephin - (cefTRIAXone) 1 grams Route: IVPB; Infused Over: 30 mins; Site: left vc1 antecubital; 00:02 Drug: Potassium Chloride 20 mEq Route: IV; Rate: calculated rate; Site: left vc1 antecubital; 00:03 Drug: NS 0.9% (30 ml/kg) 30 ml/kg Route: IV; Rate: bolus; Site: left antecubital; vc1 02:30 Drug: Zosyn (piperacillin-tazobactam) 3.375 grams Route: IVPB; Infused Over: 60 mins; vc1 Site: left antecubital; 04:00 Drug: Lactulose 200 grams Route: NE; vc1 Outcome: 00:25 Decision to Hospitalize by Provider. cp 04:30 Admitted to ER Hold. Please see [facility] for further documentation. vc1 04:30 Condition: good 04:30 Instructed on the need for admit. 21:12 Patient left the ED. as6 Signatures: Dispatcher [employer] EDNM Vicky Perales RN RN bb Page, Corey, PA PA cp Marcellus Turner, RN TAMIKA Marissa Rosenthal mw2 Rose Mary Carrion Darlyn Barnett RN RN ld1 Jacoby Griffith RN RN as6 Lidia Jones RN RN kd3 Yun, Danuta, RN RN vc1
--- NOTE | 2021-11-11 00:25 | EDPHYS ---
Physician Documentation [facility] Name: Selina Hickey Age: 60 yrs Sex: Female : 1960 Arrival Date: 11/10/2021 Time: 20:19 Bed 20 Private MD: ED Physician Darnell Ryan HPI: 11/10 20:25 This 60 yrs old Female presents to ER via Unassigned with complaints of Altered Mental cp Status. 20:25 The patient presents with confusion, decreased mental status. Onset: The cp symptoms/episode began/occurred at an unknown time. Possible causes: liver disease. Current symptoms: In the emergency department the patient's symptoms are unchanged from the initial presentation, despite EMS interventions. 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 - Social history:: Smoking status: unknown. ROS: 20:30 Constitutional: Negative for fever. cp 20:30 Neuro: Positive for altered mental status. cp 20:30 Unable to obtain ROS due to altered mental status. Exam: 20:35 Constitutional: The patient appears in no acute distress, non-diaphoretic, non-toxic, cp well developed, well nourished. 20:35 Head/Face: Normocephalic, atraumatic. cp 20:35 Eyes: Periorbital structures: appear normal, Pupils: constricted, bilaterally, Sclera: icterus, is present, Lids and lashes: appear normal, bilaterally. 20:35 ENT: External ear(s): are unremarkable, Ear canal(s): are normal, TM's: dullness, bilaterally, Nose: is normal, Mouth: Lips: dry, Oral mucosa: dry, Posterior pharynx: Airway: no evidence of obstruction, patent. 20:35 Neck: C-spine: vertebral tenderness, is not appreciated, crepitus, is not appreciated. 20:35 Chest/axilla: Inspection: ecchymosis, that is moderate, of the right breast Palpation: crepitus, is not appreciated. 20:35 Cardiovascular: Rate: normal, Rhythm: regular, Edema: is not appreciated, JVD: is not appreciated. 20:35 Respiratory: the patient does not display signs of respiratory distress, Respirations: labored breathing, is not present, shallow respirations, are not present, Breath sounds: are clear throughout, no decreased breath sounds, no stridor, no wheezing. 20:35 Abdomen/GI: Inspection: bruising, right lower quadrant and left lower quadrant, distension, that is mild, Bowel sounds: active, all quadrants, Palpation: soft, in all quadrants. 20:35 Back: pain, that is moderate, of the thoracic area. 20:35 Skin: Appearance: Color: jaundiced, Temperature: warm. 20:35 Neuro: Orientation: Not oriented to person, place, situation, Mentation: responsive to voice sleepy, Motor: moves all fours. 21:10 ECG was reviewed by the Attending Physician. cp Vital Signs: 20:19 BP 88 / 74 LA Sitting (auto/); Pulse 79 LA; Resp 12 S; Temp 95.7; Pulse Ox 97% on 2 lpm vc1 NC; Height 5 ft. 2 in. (157.48 cm); Pain 10/10; 22:36 BP 81 / 67; Pulse 76; Pulse Ox 95% on R/A; vc1 22:54 BP 90 / 69; Pulse 82; Resp 15; Pulse Ox 96% on R/A; ld1 23:00 BP 89 / 64; Pulse 75; Resp 9; Pulse Ox 95% 2 lpm ; vc1 23:12 Weight 61.23 kg; vc1 05/08 00:00 BP 111 / 72; Pulse 87; Resp 9; Pulse Ox 94% on 2 lpm NC; vc1 01:00 BP 105 / 81; Pulse 84; Resp 10; Pulse Ox 96% on 2 lpm NC; vc1 02:00 BP 108 / 61; Pulse 95; Resp 10; Pulse Ox 94% on 2 lpm NC; vc1 03:00 BP 89 / 64; Pulse 95; Resp 10; Pulse Ox 92% on R/A; vc1 04:00 BP 83 / 64; Pulse 95; Resp 9; Pulse Ox 100% on Non-rebreather mask; vc1 11/10 23:12 Body Mass Index 24.69 (61.23 kg, 157.48 cm) vc1 MDM: 11/10 20:28 Patient medically screened. 11/11 00:19 Physician consultation: Mio Tapia MD was contacted at 00:19, regarding admission, to the ICU, patient's condition, reports he is out of town and admit to hospitalist and will return to town tomorrow. 00:20 Data reviewed: vital signs, nurses notes, lab test result(s), EKG, radiologic studies, cp CT scan, plain films. 00:20 Test interpretation: by ED physician or midlevel provider: ECG, plain radiologic cp studies. Response to treatment: the patient's symptoms have mildly improved after treatment. 00:30 Physician consultation: Chan Patel was contacted at 00:30, regarding admission, to the ICU, patient's condition, and will see patient in ED, shortly. 11/10 20:26 Order name: AMMONIA; Complete Time: 22:48 11/10 23:03 Interpretation: Abnormal: JOSE LUIS 71. 11/10 20:26 Order name: Urine Microscopic Only 11/10 20:26 Order name: Basic Metabolic Panel; Complete Time: 23:01 11/10 23:02 Interpretation: Normal except: NA 134; K 3.2; BUN 35; CRE 2.98; GFR 16; CA 9.3. 11/10 20:26 Order name: CBC with Diff; Complete Time: 23:44 11/10 23:03 Interpretation: Normal except: RBC 2.69; HGB 10.1; HCT 30.7; MCV 113.9; MCH 37.6; PLT cp 104; MPV 10.4; BASO% 1.4. 11/10 20:26 Order name: LFT's; Complete Time: 23:01 11/10 23:02 Interpretation: Normal except: AST 113; ALK 140; BILIT 6.3; BILID 4.7; TP 6.3; ALB 2.3; cp GLOB 4.0; A/G 0.6. 11/10 20:26 Order name: Magnesium; Complete Time: 23:01 11/10 20:26 Order name: NT PRO-BNP; Complete Time: 23:01 11/10 20:26 Order name: PT-INR; Complete Time: 22:43 cp 11/10 20:26 Order name: Troponin HS; Complete Time: 23:01 cp 11/10 20:26 Order name: Ptt, Activated; Complete Time: 23:01 cp 11/10 20:26 Order name: Blood Culture Adult (2) cp 11/10 20:26 Order name: Lactate; Complete Time: 23:01 cp 11/10 23:02 Interpretation: Abnormal: LAC 2.3. cp 11/10 20:26 Order name: Procalcitonin; Complete Time: 23:54 cp 11/10 21:00 Order name: UDS cp 11/10 20:26 Order name: XRAY Chest (1 view); Complete Time: 21:05 cp 11/10 21:39 Order name: Creatine Phosphokinase; Complete Time: 23:01 EDMS 11/10 22:36 Order name: CBC Smear Scan; Complete Time: 23:44 EDMS 11/10 23:18 Order name: Head C Spine Cap Wo Con; Complete Time: 23:54 EDMS 11/10 23:54 Order name: ABG; Complete Time: 00:18 cp 11/11 00:18 Order name: ETOH Level; Complete Time: 02:14 cp 11/11 00:37 Order name: COVID-19 SARS RT PCR (Document "Date of Onset" if Symptomatic); Complete la1 Time: 02:14 08 01:58 Order name: Lactate Sepsis 2 HR Follow-up; Complete Time: 02:14 EDMS 11/11 03:54 Order name: Ammonia EDMS 11/11 04:24 Order name: Protime (+INR) EDMS 11/11 04:26 Order name: CBC with Automated Diff EDMS 11/11 04:41 Order name: Comprehensive Metabolic Panel EDMS 11/11 06:37 Order name: Glucose, Ancillary Testing EDMS 11/11 08:37 Order name: US EDMS 11/10 20:26 Order name: Urine Dipstick-Ancillary (obtain specimen); Complete Time: 23:11 cp 11/10 20:26 Order name: EKG; Complete Time: 20:28 cp 11/10 20:26 Order name: Cardiac monitoring; Complete Time: 22:32 cp 11/10 20:26 Order name: EKG - Nurse/Tech; Complete Time: 22:32 cp 11/10 20:26 Order name: IV Saline Lock; Complete Time: 22:32 cp 11/10 20:26 Order name: Labs collected and sent; Complete Time: 22:32 cp 11/10 20:26 Order name: O2 Per Protocol; Complete Time: 22:32 cp 11/10 20:26 Order name: O2 Sat Monitoring; Complete Time: 22:33 cp 11/10 20:26 Order name: Lopes; Complete Time: 22:53 cp EC/07 21:10 Rate is 77 beats/min. Rhythm is regular. VA interval is normal. QRS interval is normal. cp QT interval is normal. T waves are Inverted in lead aVR. Interpreted by me. Reviewed by me. Administered Medications: 22:27 Drug: NS 0.9% 500 ml Route: IV; Rate: bolus; Site: left upper arm; ld1 11/11 00:02 Drug: Rocephin - (cefTRIAXone) 1 grams Route: IVPB; Infused Over: 30 mins; Site: left vc1 antecubital; 00:02 Drug: Potassium Chloride 20 mEq Route: IV; Rate: calculated rate; Site: left vc1 antecubital; 00:03 Drug: NS 0.9% (30 ml/kg) 30 ml/kg Route: IV; Rate: bolus; Site: left antecubital; vc1 02:30 Drug: Zosyn (piperacillin-tazobactam) 3.375 grams Route: IVPB; Infused Over: 60 mins; vc1 Site: left antecubital; 04:00 Drug: Lactulose 200 grams Route: VA; vc1 Disposition: 11/12 07:25 Co-signature as Attending Physician, Darnell Ryan MD. mh7 Disposition Summary: 11/11/21 00:25 Hospitalization Ordered Hospitalization Status: Inpatient Admission cp Provider: Cosmo Dawn cp Condition: Critical cp Problem: new cp Symptoms: have improved cp Bed/Room Type: Standard cp Location: Intensive Care Unit(11/11/21 18:33) eb Room Assignment: 3-(11/11/21 18:33) eb Diagnosis - Other pneumonia, unspecified organism cp - Altered mental status, unspecified cp - Encephalopathy, unspecified cp Forms: - Medication Reconciliation Form cp - SBAR form cp Signatures: Dispatcher [facility] ARNOLDKY Bria Matos RN RN Chan Meredith FNP-C MULTI CRAFT MAINTENANCE TECHNICIAN-Cla1 Reed Garg PA PA cp Botello, Elizabeth eb Holmes, Maurice, MD MD mh7 Darlyn Barnett RN RN ld1 Danuta Malcolm RN RN vc1 Corrections: (The following items were deleted from the chart) 11/10 21:38 21:16 CREATINE PHOSPHOKINASE+C.LAB.BRZ ordered. EDMS EDMS 23:18 20:28 Head C Spine CAP W Con+CT.RAD.BRZ ordered. EDMS EDMS 11/11 00:35 00:25 Intensive Care Unit cp mw 00:35 00:25 cp mw 18:33 00:35 [facility] ER HOLD mw eb 18:33 00:35 ERHOLD- mw eb
--- NOTE | 2021-11-11 00:56 | P.HP ---
Certification for Inpatient Patient admitted to: Inpatient With expected LOS: >2 Midnights Patient will require the following post-hospital care: None Practitioner: I am a practitioner with admitting privileges, knowledge of patient current condition, hospital course, and medical plan of care. Services: Services provided to patient in accordance with Admission requirements found in Title 42 Section 412.3 of the Code of Federal Regulations Patient History Date of Service: 11/11/21 Primary Care Provider: Dr. Vizcarra [facility] Reason for admission: Hepatic encephalopathy, ARF History of Present Illness: 60-year-old female patient with history of alcohol dependence, cirrhosis liver/hepatitis C/B. Per chart review presents emergency department with altered mental status. She is reportedly been sleeping more than normal and was found on the floor last night with incontinence of stool. She was evaluated and she department her labs were significant for acute renal failure, elevated bili/D bili/AST thrombocytopenia UDS and EtOH levels pending, ammonia mildly elevated as well patient had chest x-ray which were unremarkable she had CT scans of her head neck chest abdomen and pelvis without contrast which did demonstrate dependent airspace disease concerning for aspiration with fluid and debris present in the esophagus addition to other nonacute findings. Patient was initially hypotensive upon arrival to the ED with blood pressures around 90 systolic, this has improved currently blood pressure is 97/80 her rate 91 patient is alert to verbal stimulus though speech is slurred and she does appear to be disoriented. Patient received lactulose enema given high risk for aspiration at this time. Patient given Zosyn for suspected aspiration pneumonia. Patient was here recently admitted for alcohol withdrawals was discharged approximately 5 days ago when she denies drinking since discharge. Will admit to the ICU given altered mental status, hypotension. Allergies clindamycin Allergy (Verified 01/04/21 12:49) Rash codeine Allergy (Verified 01/05/21 12:14) Itching ondansetron [From Zofran] Allergy (Verified 01/04/21 23:04) Hives vancomycin Allergy (Verified 01/05/21 12:14) Hives Home Medications: Cefdinir [Omnicef] 300 mg PO BID #14 capsule 01/07/21 Hydrocodone 10/APAP 325 [[place] 10/325*] 1 tab PO Q8HP PRN #30 tab 01/07/21 Pantoprazole [Protonix Tab*] 40 mg PO Q12H #60 tab 01/07/21 Tramadol HCl/Acetaminophen [Ultracet Tablet] 1 each PO Q12HP #30 tablet 01/07/21 metroNIDAZOLE [Flagyl] 500 mg PO Q8H #21 tablet 01/07/21 Lactobacillus Acidophilus [Acidophilus Lactobacilli] 1 each PO TID #30 capsule 01/08/21 Bupropion *Xl* [Wellbutrin XL*] 150 mg PO DAILY 90 Days #90 tab 11/05/21 Diclofenac Sodium 50 mg PO BID* PRN 15 Days #30 tablet. 11/05/21 Ensure High Protein 237 ml PO BID can 11/05/21 Levothyroxine [Synthroid*] 0.088 mg PO DAILYAC 90 Days #90 tab 11/05/21 Lipase/Protease/Amylase [Romie Gao 12,000 Unit Capsule] 1 each PO TIDWM 30 Days #300 capsule. 11/05/21 Lipase/Protease/Amylase [Romie Gao 12,000 Units Capsule] 2 cap PO TIDWMHS cap 11/05/21 Magnesium Oxide [Magnesium Oxide 400] 240 mg PO DAILY 30 Days #30 powd.pack 11/05/21 - Past Medical/Surgical History Diabetic: No -: Hep B -: Hep C -: Hypertension -: Cirrhosis -: Gout -: HLD -: Alcohol abuse -: Cataract sx bilateral-May 2020 -: tubal ligation -: Adams in left leg -: left arm plate -: gallbladder removal -: Liver Biopsy Psychosocial/ Personal History: Patient was previously living with family during last admission unsure of her what her living situation is currently as she is altered. - Family History Father History Unknown: Yes - Social History Smoking Status: Unknown if ever smoked Alcohol use: Yes CD- Drugs: No Caffeine use: Yes Place of Residence: Home Review of Systems is unable to be obtained Physical Examination - Physical Exam General: Oriented x1, Confused, Other (Lethargic) HEENT: Atraumatic Neck: Supple Respiratory: Diminished Cardiovascular: No edema, Normal S1 S2 Capillary refill: <2 Seconds Gastrointestinal: Normal bowel sounds Musculoskeletal: No contractures, No erythema Integumentary: No breakdown, No significant lesion, No tenderness/swelling Neurological: Other (Speech is slurred, patient drowsy/lethargic and confused) - Studies Laboratory Data (last 24 hrs) 11/10/21 22:20: PT 18.5 H, INR 1.66, APTT 34.9 11/10/21 22:20: Sodium 134 L, Potassium 3.2 L, BUN 35 H D, Creatinine 2.98 H D, Glucose 96, Magnesium 2.2, Total Bilirubin 6.3 H*, AST 113 H, ALT 43, Alkaline Phosphatase 140 H 11/10/21 22:15: WBC 9.0 D, Hgb 10.1 L, Hct 30.7 L D, Plt Count 104 L D Assessment and Plan - Plan Assessment: Altered mental statushepatic encephalopathy/sepsis Suspected severe sepsis secondary to aspiration pneumonia Acute renal failure hepatorenal syndrome/sepsis Cirrhosis of the liver Hepatitis C/B Alcohol abuse Thrombocytopenia related to cirrhosis of liver Plan: Altered mental statushepatic encephalopathy/sepsis: Blood cultures obtained in the emergency department continue with Zosyn for IV antibiotic coverage, also with suspected hepatic encephalopathy continue with lactulose patient with aspiration pneumonia and food/debris in esophagus on CT Will give lactulose enema as needed until patient is more alert and able to tolerate p.o. Suspected severe sepsis secondary to aspiration pneumonia: Zosyn, blood cultures obtained. Supplemental oxygen as needed. Acute renal failure hepatorenal syndrome/sepsis: Nephrology consulted, renal ultrasound ordered, continue gentle IV fluids Cirrhosis of the liver: Unsure of patient's compliance with home medication/regimen at this time will review when patient is more alert and sure patient has stopped all alcohol intake and has been taking her medication. Consult GI as necessary. Hepatitis C/B: As above Alcohol abuse: Patient denies continued alcohol use, EtOH level pending. Recommend cessation. Thrombocytopenia related to cirrhosis of liver: Noted, stable. DVT PPX: SCDs Code status: Full Discharge Plan: Home Plan to discharge in: Greater than 2 days - Advance Directives Does patient have a Living Will: No Does patient have a Durable POA for Healthcare: No - Code Status/Comfort Care Code Status Assessed: Yes (Full code) Critical Care: No Time Spent Managing Pts Care (In Minutes): 55
[2021-11-11] MEDS ORDERED: PIPERACIL/TAZO 3.375 GM VIAL IV ONE ×2 (02:07→12:39)
[2021-11-11] MEDS ORDERED: NA CHLORIDE 0.9% 1,000 ML ONE ×2 (02:07→05:35)
[2021-11-11] MEDS ORDERED: LACTULOSE 20 GM/30 ML UCUP ONE ×2 (02:08→02:28)
[2021-11-11] MEDS ORDERED: NA CHLORIDE 0.9% 100 ML IV ONE ×2 (02:09→12:38)
[2021-11-11] MEDS ORDERED: NA CHLORIDE 0.9% 1,000 ML IV SCH (03:19)
[2021-11-11] MEDS ORDERED: ONDANSETRON 4 MG/2 ML VIAL IV PRN (03:19)
[2021-11-11] MEDS ORDERED: PIPER TAZO 3.375 GM in NA CHLORIDE 0.9% 100 ML IV ONE (03:30)
[2021-11-11 04:24] LABS: Absolute Lymphocytes (CBC) 0.6 K/uL (0.7-4.9); Hematocrit 31.2 % (36.0-45.0); Lymphocytes % 6.1 % (15.3-44.8); MPV 10.1 fL (7.6-11.3); Protime INR 1.8
[2021-11-11 04:40] LABS: Albumin 2.1 g/dL (3.4-5.0); Bilirubin Total 5.9 mg/dL (0.2-1.0); Potassium 3.7 mmol/L (3.5-5.1); Protein, Total 5.9 g/dL (6.4-8.2)
[2021-11-11] MEDS ORDERED: NA CHLORIDE 0.9% 500 ML ONE (05:25)
[2021-11-11] MEDS ORDERED: ALBUMIN HUMAN 25% 200 ML IV ONE ×2 (06:51→22:42)
[2021-11-11] MEDS ORDERED: ALBUMIN HUMAN 25% 100 ML IV ONE ×2 (06:52→06:58)
--- NOTE | 2021-11-11 08:37 | RAD REPORT ---
EXAM DESCRIPTION: US - Renal Ultrasound-Complete - 11/11/2021 6:23 am CLINICAL HISTORY: Acute renal failure COMPARISON: September 2021 FINDINGS: The right kidney measures 9 cm with a normal echotexture. The left kidney measures 7 cm with a normal echotexture. Cortical thinning involves each kidney left greater than right Hydronephrosis is not seen. Bladder is decompressed and poorly evaluated Small to moderate amount of ascites IMPRESSION: Bilateral renal cortical thinning left greater than right perhaps related to prior infla mmation No hydronephrosis
[2021-11-11] MEDS: D5NS KCL 20MEQ 20 MEQ/1,000 ML BAG IV SCH (09:00)
[2021-11-11] MEDS: NA CHLORIDE 0.9% IV SCH (09:00)
[2021-11-11] MEDS: THIAMINE 200 MG/2 ML INJ IVP SCH (09:00)
[2021-11-11] MEDS ORDERED: FOLIC ACID 5 MG/ML VIAL IVP SCH (09:00)
[2021-11-11] MEDS: FOLIC ACID IV SCH (09:00)
[2021-11-11] MEDS ORDERED: THIAMINE 200 MG/2 ML INJ ONE (09:28)
[2021-11-11] MEDS: PIPER TAZO 3.375 GM in NA CHLORIDE 0.9% 100 ML IV SCH ×2 (12:00→22:02)
--- NOTE | 2021-11-11 12:57 | P.PN ---
Date of Service: 11/11/21 Patient seen and examined. She is still obtunded appears to be waking up slowly. Status post albumin infusion this morning. Systolic blood pressure improved to the 90s. She is tolerating BiPAP. Afebrile. Alcohol level less than 10. Ammonia level up to 79. Diagnosis: Hepatic encephalopathy Aspiration pneumonia Hypotension-hypovolemic shock versus septic shock. Acute renal failure-secondary to dehydration in the context of hepatorenal syndrome. Plan: Continue IV Zosyn for aspiration pneumonia. Continue IV hydration, watch for fluid overload. Wean off BiPAP as tolerated. NG tube for lactulose once patient weaned off BiPAP. Levophed versus midodrine as needed. Nephrology consult. Monitor renal function.
[2021-11-11] MEDS ORDERED: NA CHLORIDE 0.9% 250 ML ONE (20:34)
[2021-11-11 21:21] LABS: Uric Acid 11.1 mg/dL (2.6-6.0)
[2021-11-11] MEDS: NA CHLORIDE 0.9% 250 ML IV PRN ×3 (22:00→22:26)
[2021-11-12] MEDS: NOREPINEPHRINE 4 MG in D5W 250 ML IV SCH ×3 (01:02→07:14)
--- NOTE | 2021-11-12 01:14 | CON ---
Date of Consultation: 11/11/2021 Chief Complaint: Acute kidney injury, hepatic encephalopathy. History Of Present Illness: Patient is a 60-year-old woman with history of alcohol dependence, cirrhosis of the liver related to hepatitis C and B, and alcohol dependence. Patient cannot provide review of systems. Chart was reviewed. Patient is somnolent. Currently, she is on BiPAP. Patient was found to have elevated bilirubin level, AST, thrombocytopenia. Alcohol level is 10. The ammonia level was mildly elevated. Patient has borderline hypotension. She remains in ICU. Blood pressure is 97/80, heart rate 91. Patient is alert to verbal stimulus, although she cannot provide review of systems. She appears to be disoriented. Patient received lactulose, enemas, and treatment of hyperammonemia. Patient is on broad-spectrum antibiotics and she received Zosyn for possible aspiration pneumonia. Review of Systems: Unobtainable. Past Medical History: Hepatitis B and C, hypertension, liver cirrhosis, gout, alcohol abuse, cataract surgery bilaterally, tubal ligation, gallbladder removal, liver biopsy. Family History: No kidney disease in the family. Social History: Denies tobacco, alcohol. She has positive history of alcohol dependence. Physical Examination: General: Oriented x1. Patient is slightly confused. HEENT: Eyes, icteric sclerae present. Heart: S1, S2. Abdomen: Soft. Extremities: Slight edema. Neurologic: Moving extremities. Speech is somewhat slower and patient is drowsy and confused. Laboratory Data: Sodium 134, potassium 3.2, BUN 35, creatinine 2.98, glucose 96. Magnesium 2.2. Total bilirubin 6.3, AST 113, ALT 43. Hemoglobin 10.1, WBC 9.0, platelet count is 104,000. Impression And Plan: 1. Patient has multiple medical problems. Currently, patient was found to have acute renal failure due to hepatorenal syndrome, accelerated by possible sepsis, likely underlying acute tubular necrosis. Plan is to continue to monitor urine output. Patient may need dialysis. 2. Hypotension. Recommend to start midodrine, IV pressor. 3. Liver cirrhosis due to multiple causes. Recommend GI consult. Alcohol abuse per primary team. 4. Acute kidney injury. Renal ultrasound was ordered to check kidney size and evaluate echogenicity for possible chronic kidney disease. Plan is to check UA and screen for abnormal urinary sediment. EB/MODL Voice ID: [id number] Report ID: [id number] ROSAMARIA
[2021-11-12 04:53] LABS: Absolute Lymphocytes (CBC) 1.3 K/uL (0.7-4.9); Hematocrit 23.2 % (36.0-45.0); Lymphocytes % 5.5 % (15.3-44.8); MPV 10.6 fL (7.6-11.3); Protime INR 2.38; RBC Red Blood Cell Count 1.98 M/uL (3.86-4.86)
[2021-11-12] MEDS: D5NS KCL 20MEQ 20 MEQ/1,000 ML BAG IV SCH ×3 (04:58→15:58)
[2021-11-12 05:08] LABS: Bilirubin Total 4.5 mg/dL (0.2-1.0); Potassium 3.9 mmol/L (3.5-5.1); Protein, Total 5.7 g/dL (6.4-8.2)
[2021-11-12 05:23] LABS: Basophilic Stippling 1+; Blood Morphology Comment NOTED (NOT SEEN); Macrocytosis 2+; Platelet Estimate ADEQ; Polychromasia 3+
[2021-11-12] MEDS: THIAMINE 200 MG/2 ML INJ IVP SCH (08:20)
[2021-11-12] MEDS: FOLIC ACID IV SCH (08:20)
[2021-11-12] MEDS: NA CHLORIDE 0.9% IV SCH (08:20)
[2021-11-12] MEDS: PIPER TAZO 3.375 GM in NA CHLORIDE 0.9% 100 ML IV SCH ×2 (08:20→21:10)
[2021-11-12] MEDS: NA CHLORIDE 0.9% 250 ML IV PRN ×8 (08:22→11:42)
[2021-11-12] MEDS ORDERED: NA CHLORIDE 0.9% 500 ML ONE ×2 (08:23→11:10)
--- NOTE | 2021-11-12 09:00 | EKG ---
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
[2021-11-12] MEDS: NOREPINEPHRINE 8 MG in Dextrose 5%-Water 500 ML IV SCH ×3 (09:48→19:48)
--- NOTE | 2021-11-12 10:02 | P.PN ---
Subjective Date of Service: 11/12/21 Primary Care Provider: Dr. Vizcarra [facility] Chief Complaint: Hepatic encephalopathy, ARF Subjective: No new changes Review of Systems is unable to be obtained Physical Examination - Vital Signs Temperature: 96.1 F Blood Pressure: 92/46 Pulse: 112 Respirations: 17 Pulse Ox (%): 97 - Physical Exam General: Unresponsive HEENT: Atraumatic, PERRLA, EOMI Neck: Supple, JVD not distended Respiratory: Normal air movement, Crackles/rales Cardiovascular: Regular rate/rhythm, Normal S1 S2 Gastrointestinal: Normal bowel sounds, No tenderness Musculoskeletal: No tenderness Integumentary: No rashes Neurological: Normal speech, Normal tone, Normal affect Lymphatics: No axilla or inguinal lymphadenopathy - Studies Microbiology Data (last 24 hrs): 11/10/21 22:15 Blood - Blood Anaerobic Blood Culture - Final 11/10/21 22:20 Blood - Blood Anaerobic Blood Culture - Final Assessment And Plan - Current Problems (Diagnosis) (1) Septic shock Current Visit: Yes Status: Acute Plan: On Levophed. Will give her 250cc boluses. She has recieved 1 lt this morning. poor urine output. Will add dopamine if the patient is not improving with adequate fluids. (2) Aspiration pneumonia Current Visit: Yes Status: Acute Plan: Patient is maintaining her oxygen on bipap. Will consult Dr. Bernabe Qualifiers: Laterality: unspecified laterality (3) Acute renal failure Current Visit: Yes Status: Acute Plan: Continue fluids. Dr. Naylor is seeing the patient Qualifiers: Acute renal failure type: unspecified Qualified Code(s): N17.9 - Acute kidney failure, unspecified (4) History of cirrhosis of liver Current Visit: No Status: Acute Plan: Will check an ammonia level consider lactulose pr if continuing to elevated Discharge Plan: Home Plan to discharge in: 24 Hours - Code Status/Comfort Care Code Status Assessed: No Critical Care: Yes Time Spent Managing PTS Care (In Minutes): 30
[2021-11-12 10:32] LABS: Arterial Blood Carboxyhemoglob 1.5 % (0-1.5); Blood Gas Oxyhemoglobin 87.2 % (94-97); Blood O2 Saturation 89.5 % (92-98.5)
--- NOTE | 2021-11-12 11:33 | P.CNS ---
Date of Consult: 11/12/21 Reason for Consult: Respiratory failure Primary Care Provider: Dr. Vizcarra [facility] Chief Complaint: Hepatic encephalopathy, ARF Allergies clindamycin Allergy (Verified 01/04/21 12:49) Rash codeine Allergy (Verified 01/05/21 12:14) Itching ondansetron [From Zofran] Allergy (Verified 01/04/21 23:04) Hives vancomycin Allergy (Verified 01/05/21 12:14) Hives Home Medications: Cefdinir [Omnicef] 300 mg PO BID #14 capsule 01/07/21 Hydrocodone 10/APAP 325 [[place] 10/325*] 1 tab PO Q8HP PRN #30 tab 01/07/21 Pantoprazole [Protonix Tab*] 40 mg PO Q12H #60 tab 01/07/21 Tramadol HCl/Acetaminophen [Ultracet Tablet] 1 each PO Q12HP #30 tablet 01/07/21 metroNIDAZOLE [Flagyl] 500 mg PO Q8H #21 tablet 01/07/21 Lactobacillus Acidophilus [Acidophilus Lactobacilli] 1 each PO TID #30 capsule 01/08/21 Bupropion *Xl* [Wellbutrin XL*] 150 mg PO DAILY 90 Days #90 tab 11/05/21 Diclofenac Sodium 50 mg PO BID* PRN 15 Days #30 tablet. 11/05/21 Ensure High Protein 237 ml PO BID can 11/05/21 Levothyroxine [Synthroid*] 0.088 mg PO DAILYAC 90 Days #90 tab 11/05/21 Lipase/Protease/Amylase [Romie Gao 12,000 Unit Capsule] 1 each PO TIDWM 30 Days #300 capsule. 11/05/21 Lipase/Protease/Amylase [Romie Gao 12,000 Units Capsule] 2 cap PO TIDWMHS cap 11/05/21 Magnesium Oxide [Magnesium Oxide 400] 240 mg PO DAILY 30 Days #30 powd.pack 11/05/21 - Past Medical/Surgical History Diabetic: No -: Hep B -: Hep C -: Hypertension -: Cirrhosis -: Gout -: HLD -: Alcohol abuse -: Cataract sx bilateral-May 2020 -: tubal ligation -: Adams in left leg -: left arm plate -: gallbladder removal -: Liver Biopsy Psychosocial/ Personal History: Patient was previously living with family during last admission unsure of her what her living situation is currently as she is altered. - Family History Father History Unknown: Yes - Social History Smoking Status: Unknown if ever smoked Alcohol use: Yes CD- Drugs: No Caffeine use: Yes Place of Residence: Home Physical Examination Temp Pulse Resp BP Pulse Ox 96.1 F L 112 H 17 92/46 L 97 11/12/21 10:02 11/12/21 10:02 11/12/21 10:02 11/12/21 10:02 11/12/21 10:02
--- NOTE | 2021-11-12 11:40 | P.CNS ---
Date of Consult: 11/12/21 Primary Care Provider: Dr. Vizcarra [facility] Chief Complaint: Hepatic encephalopathy, ARF History of Present Illness: Patient is 60 years of age cirrhosis of the liver alcohol abuse presented to the emergency room with altered mental status respiratory failure incontinence of stool had abnormal liver function lites anasarca severe hypotension the patient is alert mild minimally cooperative on BiPAP. She was recently admitted for alcohol withdrawal Allergies clindamycin Allergy (Verified 01/04/21 12:49) Rash codeine Allergy (Verified 01/05/21 12:14) Itching ondansetron [From Zofran] Allergy (Verified 01/04/21 23:04) Hives vancomycin Allergy (Verified 01/05/21 12:14) Hives Home Medications: Cefdinir [Omnicef] 300 mg PO BID #14 capsule 01/07/21 Hydrocodone 10/APAP 325 [[place] 10/325*] 1 tab PO Q8HP PRN #30 tab 01/07/21 Pantoprazole [Protonix Tab*] 40 mg PO Q12H #60 tab 01/07/21 Tramadol HCl/Acetaminophen [Ultracet Tablet] 1 each PO Q12HP #30 tablet 01/07/21 metroNIDAZOLE [Flagyl] 500 mg PO Q8H #21 tablet 01/07/21 Lactobacillus Acidophilus [Acidophilus Lactobacilli] 1 each PO TID #30 capsule 01/08/21 Bupropion *Xl* [Wellbutrin XL*] 150 mg PO DAILY 90 Days #90 tab 11/05/21 Diclofenac Sodium 50 mg PO BID* PRN 15 Days #30 tablet. 11/05/21 Ensure High Protein 237 ml PO BID can 11/05/21 Levothyroxine [Synthroid*] 0.088 mg PO DAILYAC 90 Days #90 tab 11/05/21 Lipase/Protease/Amylase [Romie Gao 12,000 Unit Capsule] 1 each PO TIDWM 30 Days #300 capsule. 11/05/21 Lipase/Protease/Amylase [Romie Gao 12,000 Units Capsule] 2 cap PO TIDWMHS cap 11/05/21 Magnesium Oxide [Magnesium Oxide 400] 240 mg PO DAILY 30 Days #30 powd.pack 11/05/21 - Past Medical/Surgical History Diabetic: No -: Hep B -: Hep C -: Hypertension -: Cirrhosis -: Gout -: HLD -: Alcohol abuse -: Cataract sx bilateral-May 2020 -: tubal ligation -: Adams in left leg -: left arm plate -: gallbladder removal -: Liver Biopsy Psychosocial/ Personal History: Patient was previously living with family during last admission unsure of her what her living situation is currently as she is altered. - Family History Father History Unknown: Yes - Social History Smoking Status: Unknown if ever smoked Alcohol use: Yes CD- Drugs: No Caffeine use: Yes Place of Residence: Home Review of Systems is unable to be obtained Physical Examination Temp Pulse Resp BP Pulse Ox 96.1 F L 112 H 17 92/46 L 97 11/12/21 10:02 11/12/21 10:02 11/12/21 10:02 11/12/21 10:11/12/21 10:02 General: Other (Minimally responsive will open her eyes) HEENT: Atraumatic Neck: Supple Respiratory: Normal air movement, Diminished Cardiovascular: Normal S1 S2, Edema Gastrointestinal: Normal bowel sounds, Distended (Mildly distended) - Problems (1) Respiratory failure Current Visit: Yes Status: Acute Plan: Patient is 60 years of age alcohol abuse cirrhosis of the liver worsening renal function probably has combination of metabolic aspect acidosis and respiratory acidosis White count is elevated bands are very high and mildly anemic currently maxed out on Levophed CT scan possible aspiration chest x-ray shows bilateral airspace disease most likely a pneumonia she is apparently allergic to vancomycin and clindamycin blood cultures are so far negative add steroids and is allergic to vancomycin and clindamycin add Zyvox however for the possibility of MRSA patient is also on Zosyn prognosis poor currently on BiPAP Qualifiers: Chronicity: acute on chronic
[2021-11-12] MEDS ORDERED: ALBUMIN HUMAN 25% 100 ML IV ONE ×4 (11:48→21:20)
--- NOTE | 2021-11-12 12:16 | RAD REPORT ---
EXAM DESCRIPTION: RAD - Chest Single View - 11/12/2021 2:42 am CLINICAL HISTORY: The patient is 60 years old and is Female; S/P PICC insertion TECHNIQUE: Frontal view of the chest. COMPARISON: No relevant prior studies available. FINDINGS: Lungs: Scattered interstitial and airspace opacities bilaterally. Pleural space: Unremarkable. No pneumothorax. Heart: Unremarkable. Mediastinum: Unremarkable. Bones/joints: Unremarkable. Tubes, lines and devices: Right PICC with tip in the SVC. IMPRESSION: 1. Right PICC with tip in the SVC. 2. Scattered interstitial and airspace opacities bilaterally. Electronically signed by: Terence Brandt MD 11/12/2021 3:09 AM CDT Due to temporary technical issues with the PACS/Fluency reporting system, reports are being signed by the in house radiologist without review as a courtesy to ensure prompt reporting. The interpreting r adiologist is fully responsible for the content of the report.
[2021-11-12] MEDS: LINEZOLID 600 MG IVPB 600 MG/300 ML BAG IV SCH ×2 (12:22→21:11)
[2021-11-12] MEDS: HYDROCORTISONE SUC 100 MG INJ IV SCH ×2 (12:23→21:10)
--- NOTE | 2021-11-12 13:02 | RAD REPORT ---
EXAM DESCRIPTION: RAD - Chest Single View - 11/12/2021 12:51 pm CLINICAL HISTORY: aspiration pneumonia Chest pain. COMPARISON: Chest Single View dated 11/12/2021; Chest Single View dated 11/10/2021; Chest Single View da dot 01/16/2021; Chest Single View dated 12/18/2020 FINDINGS: Portable technique limits examination quality. Extensive bilateral pulmonary opacities are present which have moderately worsened since the comparat lina study compatible with worsening pneumonia. The heart is normal in size. Right-sided PICC line has tip in the SVC. IMPRESSION: Moderate worsening in bilateral pulmonary opacities since exam performed earlier same da te.
[2021-11-12] MEDS: PANTOPRAZOLE INJ 80 MG in NA CHLORIDE 0.9% 250 ML IV SCH (14:08)
--- NOTE | 2021-11-12 14:13 | RAD REPORT ---
EXAM DESCRIPTION: RAD - Abdomen 1 View (KUB) - 11/12/2021 2:08 pm CLINICAL HISTORY: Ngt placement Pain COMPARISON: No comparisons FINDINGS: Enteric tube is not visualized on this examination. It may be coiled in the mouth. Recomme nd clinical correlation.
[2021-11-12 14:18] LABS: Hematocrit 22.8 % (36.0-45.0)
[2021-11-12 14:31] LABS: Barbiturates NEGATIVE (NEGATIVE); Benzodiazepines POSITIVE (NEGATIVE); Cocaine NEGATIVE (NEGATIVE); METHAMPHETAM NEGATIVE (NEGATIVE); Methadone NEGATIVE (NEGATIVE); Opiates NEGATIVE (NEGATIVE); Phencyclidine NEGATIVE (NEGATIVE); THC Cannibis NEGATIVE (NEGATIVE)
[2021-11-12 14:32] LABS: Urine Blood 2+ (Negative); Urine Color Yellow (Yellow); Urine Glucose Negative (Negative); Urine Protein 2+ (Negative); Urine Specific Gravity 1.015 (1.005-1.030); Urine pH 5.5 (5.0-7.0)
[2021-11-12 14:43] LABS: Urine Appearance HAZY (Clear); Urine Microscopic Reflex ORDER UMIC
[2021-11-12 14:47] LABS: Urine Bacteria 20-50 /HPF (<20)
[2021-11-12 14:56] LABS: Urine Bilirubin 2+ (Negative)
--- NOTE | 2021-11-12 14:57 | P.PN ---
Date of Service: 11/12/21 Patient's and sister came to the office today. Approx 1pm. They both agreed to dnr/dni. Will switch her to dnr/dni Have discussed the patient with Dr. Dela Cruz as she has blood oral suction. Will put her on ppi drip and a octeritide drip
--- NOTE | 2021-11-12 15:18 | RAD REPORT ---
EXAM DESCRIPTION: RAD - Abdomen 1 View (KUB) - 11/12/2021 2:58 pm CLINICAL HISTORY: NG tube reinsertion Pain COMPARISON: Abdomen 1 View (KUB) dated 11/12/2021 FINDINGS: Enteric tube tip is in the distal stomach.
[2021-11-12] MEDS: OCTREOTIDE 500 MCG in NA CHLORIDE 0.9% 500 ML IV SCH (15:59)
[2021-11-12] MEDS ORDERED: FUROSEMIDE 40 MG/4 ML VIAL IV ONE (17:31)
[2021-11-12] MEDS ORDERED: D5W 1,000 ML with NA BICARB 8.4% 150 MEQ IV SCH ×2 (21:00)
[2021-11-12 21:01] LABS: Hematocrit 23.6 % (36.0-45.0)
--- NOTE | 2021-11-12 21:14 | PN ---
Date of Progress Note: 11/12/2021 Chief Complaint: Severe kidney injury, hepatic encephalopathy, hypotension, sepsis, septic shock. Subjective: Patient is on norepinephrine drip. She remains in ICU. She received IV fluids with boluses and maintenance infusion. The patient is somewhat somnolent. She was treated for hepatic encephalopathy. She has history of hepatitis B and C related liver cirrhosis as well as she is alcohol dependent and has a history of alcohol dependence. The patient is somewhat alert today, systolic blood pressure is in 90s. The patient is on norepinephrine drip. Patient is on broad-spectrum antibiotics for aspiration pneumonia. Renal function has not improved. Urine output is borderline oliguric and patient will continue IV fluids for acute kidney injury and sepsis and septic shock. Review of Systems: Unobtainable. Objective: Lungs: Few rhonchi. Heart: S1, S2. Abdomen: Soft. Extremities: Slight edema. Laboratory Work: Hemoglobin 7.2, WBC 24.3, platelet counts are 99,000 and 119,000. Chemistry showed sodium 142, potassium 3.9, chloride 112, CO2 18, anion gap 15.9, BUN 38, creatinine 3.36, glucose 121. Total bilirubin 4.5, calcium 7.8, ammonia is 56, albumin is 3.0. Impression And Plan: Acute kidney injury, nonoliguric. Continue IV fluids. Continue antibiotics broad spectrum for sepsis and septic shock. Patient had renal ultrasound done, did not show obstructive uropathy. Patient is critically ill in ICU. Critical care as per Pulmonary therapy. The patient previously was taking diclofenac sodium, which is likely contributory to acute kidney injury. At this point, patient likely has acute tubular necrosis and she may need dialysis if renal function does not improve. Continue IV fluids. Continue Zosyn for possible methicillin-resistant Staphylococcus aureus infection. EB/MODL Voice ID: [id number] Report ID: [id number] ROSAMARIA
[2021-11-12 21:15] LABS: Potassium 4.8 mmol/L (3.5-5.1)
[2021-11-13] MEDS: PANTOPRAZOLE INJ 80 MG in NA CHLORIDE 0.9% 250 ML IV SCH ×2 (00:46→11:36)
[2021-11-13] MEDS: NOREPINEPHRINE 8 MG in Dextrose 5%-Water 500 ML IV SCH ×4 (01:10→21:58)
[2021-11-13] MEDS: OCTREOTIDE 500 MCG in NA CHLORIDE 0.9% 500 ML IV SCH (02:48)
[2021-11-13 05:08] LABS: Absolute Lymphocytes (CBC) 1.4 K/uL (0.7-4.9); Hematocrit 23.1 % (36.0-45.0); Lymphocytes % 3.5 % (15.3-44.8); RBC Red Blood Cell Count 1.95 M/uL (3.86-4.86)
[2021-11-13 05:27] LABS: Albumin 2.8 g/dL (3.4-5.0); Bilirubin Total 4.5 mg/dL (0.2-1.0); Potassium 4.5 mmol/L (3.5-5.1); Protein, Total 5.3 g/dL (6.4-8.2)
[2021-11-13 05:38] LABS: Blood Morphology Comment NOTED (NOT SEEN); Macrocytosis 2+; Platelet Estimate ADEQ
[2021-11-13 05:39] LABS: Burr Cells 1+
[2021-11-13 05:52] VITALS: BMI 29.8
--- NOTE | 2021-11-13 08:18 | P.PN ---
Subjective Date of Service: 11/13/21 Primary Care Provider: Dr. Vizcarra [facility] Chief Complaint: Hepatic encephalopathy, ARF Subjective: Worsening (Patient's condition is worsening unresponsive Shock) Review of Systems is unable to be obtained Physical Examination - Vital Signs Temperature: 97.9 F Blood Pressure: 107/63 Pulse: 103 Respirations: 19 Pulse Ox (%): 96 - Physical Exam General: Comatose Respiratory: Clear to auscultation bilaterally, Diminished Cardiovascular: Edema Assessment And Plan - Current Problems (Diagnosis) (1) Respiratory failure Current Visit: Yes Status: Acute Plan: Recent GI bleed patient is in shock possible hepatorenal syndrome renal function worsening white count is elevated bands elevated blood cultures so far negative DC Zyvox blood cultures negative continue with Zosyn chest x-ray very abnormal lateral infiltrates most likely ARDS prognosis poor consider withdrawal and comfort care measures on hydrocortisone Qualifiers: Chronicity: acute on chronic
[2021-11-13] MEDS: PIPER TAZO 3.375 GM in NA CHLORIDE 0.9% 100 ML IV SCH ×2 (08:39→20:48)
[2021-11-13] MEDS: LINEZOLID 600 MG IVPB 600 MG/300 ML BAG IV SCH ×2 (08:39→20:48)
[2021-11-13] MEDS: THIAMINE 200 MG/2 ML INJ IVP SCH (08:39)
[2021-11-13] MEDS: HYDROCORTISONE SUC 100 MG INJ IV SCH (08:39)
[2021-11-13] MEDS: NA CHLORIDE 0.9% IV SCH (08:56)
[2021-11-13] MEDS: FOLIC ACID IV SCH (08:56)
[2021-11-13] MEDS ORDERED: OCTREOTIDE 500 MCG in NA CHLORIDE 0.9% 500 ML IV SCH (09:00)
[2021-11-13] MEDS ORDERED: D5W 1,000 ML with NA BICARB 8.4% 150 MEQ IV SCH ×2 (09:00)
[2021-11-13] MEDS ORDERED: CALCIUM GLUCONATE 1 GM IVPB 2 GM/100 ML BAG IV ONE (09:00)
[2021-11-13] MEDS ORDERED: CALCIUM GLUC 10% INJ 9.3 MEQ in NA CHLORIDE 0.9% 100 ML IV ONE (10:00)
[2021-11-13 10:49] LABS: Protime INR 3.14
[2021-11-13] MEDS ORDERED: LACTULOSE 20 GM/30 ML UCUP NG ONE (11:03)
[2021-11-13 12:32] LABS: Hematocrit 23.3 % (36.0-45.0)
[2021-11-13] MEDS: ALBUMIN HUMAN 25% 100 ML IV SCH ×2 (14:42→22:16)
[2021-11-13] MEDS: CALCIUM GLUCONATE 1 GM IVPB 1 GM/50 ML BAG IV SCH ×2 (15:00→18:17)
[2021-11-13] MEDS ORDERED: HYDROCORTISONE SUC 100 MG INJ IV SCH (17:00)
[2021-11-13] MEDS ORDERED: VITAMIN K (ADULT) 10 MG/ML SQ SCH ×2 (17:00→18:00)
--- NOTE | 2021-11-13 17:30 | P.PN ---
Subjective Date of Service: 11/13/21 Primary Care Provider: Dr. Vizcarra [facility] Chief Complaint: Hepatic encephalopathy, ARF Subjective: Worsening (patient is only opening eyes) no stool or urine output Review of Systems is unable to be obtained Physical Examination - Vital Signs Temperature: 96.8 F Blood Pressure: 83/56 Pulse: 94 Respirations: 9 Pulse Ox (%): 89 - Physical Exam General: Unresponsive HEENT: Atraumatic, PERRLA, EOMI Neck: Supple, JVD not distended Respiratory: Diminished Cardiovascular: Regular rate/rhythm, Normal S1 S2 Gastrointestinal: Normal bowel sounds, No tenderness Musculoskeletal: No tenderness Integumentary: No rashes Neurological: Normal speech, Normal tone, Normal affect Lymphatics: No axilla or inguinal lymphadenopathy Assessment And Plan - Current Problems (Diagnosis) (1) Septic shock Current Visit: Yes Status: Acute Plan: On Levophed. Will give her 250cc boluses. She has recieved 1 lt this morning. poor urine output. Will add dopamine if the patient is not improving with adequate fluids. (2) Aspiration pneumonia Current Visit: Yes Status: Acute Plan: Patient is maintaining her oxygen on bipap. Will consult Dr. Bernabe Qualifiers: Laterality: unspecified laterality (3) Acute renal failure Current Visit: Yes Status: Acute Plan: Continue fluids. Dr. Naylor is seeing the patient We could possible transfer the patient to be on continous dialysis. However consider her prognosis I don't feel this would improve mortality. I do not believe she is stable enough to survive transfer. I have told this to her daughter and sister and they are in agreement. Awaiting to discuss this with the . Qualifiers: Acute renal failure type: unspecified Qualified Code(s): N17.9 - Acute kidney failure, unspecified (4) History of cirrhosis of liver Current Visit: No Status: Acute Plan: Will check an ammonia level consider lactulose pr if continuing to elevated have discussed the patient with Dr. Dela Cruz. He states this is stage 4 liver failure based on her labs. Very poor prognosis. 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 gi Bleed, stage 4 hepatic failure (GI system) 5. renal failure. so 5 organ systems. Her mortality is approx 95% per some data. have discussed with Dr. Dela Cruz and Dr. Bernabe. Both feel the patient is terminal. have disscussed this twice with Her sister Mrs Bateman and the patients daughter. They are aware of the patient poor prognosis. However not been able to discuss with her next of kin the spouse. Mrs Bateman stated he was drunk when she spoke to him yesterday. He does have a history of alcohol abuse. Will continue to try to get in touch with him and discuss withdrawal of care. Discharge Plan: Home Plan to discharge in: Greater than 2 days - Code Status/Comfort Care Code Status Assessed: No Physician Review: Patient Assessed, Agree with Above Assessment and Plan Critical Care: Yes Time Spent Managing PTS Care (In Minutes): 90
[2021-11-13] MEDS ORDERED: CALCIUM GLUCONATE 1 GM IVPB 1 GM/50 ML BAG IV SCH (18:00)
--- NOTE | 2021-11-13 20:04 | PN ---
Date of Progress Note: 11/13/2021 Additional Consulting Physician: Mio Tapia MD Subjective: The patient was admitted with hepatic failure, hepatorenal syndrome. The patient had acute kidney injury. The patient is oliguric/anuric. The patient on Levophed. The patient received fluid resuscitation. Blood pressure still on the lower side. Again, the patient oliguric. She has low blood count and she has respiratory distress. Physical Examination: Vital Signs: When I saw the patient; blood pressure 96/67, pulse of 97, afebrile. The patient had urine output of only 140. Chest: Crackles bilateral. Heart: S1, S2. Systolic murmur. Abdomen: Soft, nontender. Extremities: +3 edema. Neuro: The patient sleepy, flaccid, moving extremities without any focality. Laboratory Data: Sodium 135, potassium 4.5, bicarb 19, BUN 38, creatinine 3.4, GFR of 15, calcium 6.9. Albumin 2.8. Corrected calcium is 7.7. WBC 40.7, H and H 7.1/23.1. Current Medications: The patient on include; 1. Levophed. 2. Linezolid. 3. Zosyn 3.375. 4. Lasix. 5. Pantoprazole. 6. Hydrocortisone. 7. Octreotide drip. 8. Bicarb drip. Assessment And Plan: 1. Acute kidney injury secondary to hepatorenal/toxic ATN secondary to poor perfusion, ATN secondary to septic shock. Oliguric, over volume with acidosis. The patient needing renal replacement therapy, apparently a discussion about CRRT given the instability of the patient has been brought up and because of the poor prognosis of the patient that option has been denied by other rn team leader and by family. The patient is still needing renal replacement therapy, possible poor outcome for this patient given the hepatorenal syndrome. We will discuss with the family either the patient is going to need CRRT or take the rest and try sled in our facility. We will follow up. 2. Hypocalcemia. I am going to send for vitamin D and PTH. We will start the patient on calcium gluconate. 3. Hepatorenal syndrome. The patient on octreotide and Levophed. I am going to continue IV fluid and I will start the patient on albumin to complete the fluid expansion. The patient had upper GI bleed. I cannot start the patient on any midodrine for the time being. 4. Septic shock with severe leukocytosis. Continue current antibiotic dose appropriate. 5. Multiorgan failure, liver failure, respiratory failure, and renal failure. I am going to go ahead and increase the hydrocortisone to every 8 hours. Continue current antibiotic. Continue Levophed. The patient has overall poor prognosis. 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
[2021-11-13 20:12] VITALS: O2SAT 88
[2021-11-13 20:35] VITALS: TEMP 97.8
[2021-11-14 00:58] VITALS: BP 98/48
--- NOTE | 2021-11-14 15:43 | P.DS ---
Admission Date: 11/11/21 Discharge Date: 11/14/21 Primary Care Provider: Dr. Vizcarra [facility] Disposition: Discharge Condition: Reason for Admission: Hepatic encephalopathy, ARF - Problems (1) Septic shock Status: Acute (2) Aspiration pneumonia Status: Acute Qualifiers: Laterality: unspecified laterality (3) Acute renal failure Status: Acute Qualifiers: Acute renal failure type: unspecified Qualified Code(s): N17.9 - Acute kidney failure, unspecified (4) History of cirrhosis of liver Status: Acute (5) Multi-organ failure with liver failure Status: Acute Brief History of Present Illness: Patient admitted for aspiration pneumonia by the hospitalist. She was started on fluids, levophed and a bipap Hospital Course: Patient was admitted to the icu. Was on levophed. The patient had a gi bleed. Her family made her a dnr. She had worsening hepatorenal syndrome. Was seen by Srinivasa Sherwood and Dr. Dela Cruz. The patient continued to worsen. Unfortunately she at 2230 last night. I wish the family the best. Thank you for allowing me to take part in the patients care. Vital Signs/Physical Exam: Temp Pulse Resp BP Pulse Ox 97.8 F 95 H 28 H 98/48 L 48 L 11/13/21 20:00 11/13/21 23:00 11/13/21 23:00 11/13/21 23:00 11/13/21 23:00 General: Alert, In no apparent distress HEENT: Atraumatic, PERRLA, EOMI Neck: Supple, JVD not distended Respiratory: Clear to auscultation bilaterally, Normal air movement Cardiovascular: Regular rate/rhythm, Normal S1 S2 Gastrointestinal: Normal bowel sounds, No tenderness Musculoskeletal: No tenderness Integumentary: No rashes Neurological: Normal speech, Normal tone, Normal affect Lymphatics: No axilla or inguinal lymphadenopathy Laboratory Data at Discharge: WBC Cancelled 11/14/21 05:00 Hgb Cancelled 11/14/21 05:00 Hct Cancelled 11/14/21 05:00 Plt Count Cancelled 11/14/21 05:00 PT Cancelled 11/14/21 05:00 INR Cancelled 11/14/21 05:00 APTT 34.9 SECONDS (24.3-36.9) 11/10/21 22:20 Sodium Cancelled 11/14/21 05:00 Potassium Cancelled 11/14/21 05:00 BUN Cancelled 11/14/21 05:00 Creatinine Cancelled 11/14/21 05:00 Glucose Cancelled 11/14/21 05:00 Uric Acid 11.1 mg/dL (2.6-6.0) H 11/11/21 20:28 Phosphorus Cancelled 11/14/21 05:00 Magnesium 2.2 mg/dL (1.8-2.4) 11/10/21 22:20 Total Bilirubin Cancelled 11/14/21 05:00 AST Cancelled 11/14/21 05:00 ALT Cancelled 11/14/21 05:00 Alkaline Phosphatase Cancelled 11/14/21 05:00 Home Medications: Pantoprazole [Protonix Tab*] 40 mg PO Q12H #60 tab 01/07/21 Bupropion *Xl* [Wellbutrin XL*] 150 mg PO DAILY 90 Days #90 tab 11/05/21 Diclofenac Sodium 50 mg PO BID* PRN 15 Days #30 tablet. 11/05/21 Levothyroxine [Synthroid*] 0.088 mg PO DAILYAC 90 Days #90 tab 11/05/21 Lipase/Protease/Amylase [Romie Gao 12,000 Unit Capsule] 1 each PO TIDWM 30 Days #300 capsule. 11/05/21 Buprenorphine HCl/Naloxone HCl [Buprenorphine-Nalox 8-2Mg Film] 1 each SL DAILY 11/12/21 Furosemide [Lasix] 40 mg PO DAILY 11/12/21 Magnesium Oxide 400 mg PO DAILY 11/12/21 clonazePAM [Clonazepam] 1 mg PO BID* 11/12/21 Folic Acid 1 mg PO DAILY 11/13/21 Spironolactone [Aldactone] 100 mg PO DAILY 11/13/21 Followup: Unknown,U [Primary Care Provider] - Time spent managing pt's care (in minutes): 30
[2021-11-14 17:48] LABS: Albumin, (SPE) 2.7 g/dL (3.8-4.8); Alpha-1-Globulins 0.3 g/dL (0.2-0.3); Alpha-2-Globulins 0.5 g/dL (0.5-0.9); INTERPRETATION REPORT
== END 2021-11-13 23:20 | disposition expired | DRG 871 ==
LOC: ER 20:04 → ERHOLD 11-11 00:31 → 3RD-ICU 11-11 20:13
PROVIDERS: ADMIT Internal Medicine; ATTEND Internal Medicine
PROC: 0T9B70Z Drainage of Bladder with Drainage Device, Via Natural or Artificial Opening (ICD-10-PCS; principal; 2021-11-10)
PROC: 5A09457 Assistance with Respiratory Ventilation, 24-96 Consecutive Hours, Continuous Positive Airway Pressure (ICD-10-PCS; 2021-11-11)
PROC: 02HV33Z Insertion of Infusion Device into Superior Vena Cava, Percutaneous Approach (ICD-10-PCS; 2021-11-12)
PROC: 3E043XZ Introduction of Vasopressor into Central Vein, Percutaneous Approach (ICD-10-PCS; 2021-11-12)
PROC: 5A0935A Assistance with Respiratory Ventilation, Less than 24 Consecutive Hours, High Flow/Velocity Cannula (ICD-10-PCS; 2021-11-13)
DX: A41.9 Sepsis, unspecified organism (principal); J69.0 Pneumonitis due to inhalation of food and vomit; K76.7 Hepatorenal syndrome; N17.0 Acute kidney failure with tubular necrosis; R65.21 Severe sepsis with septic shock; J96.20 Acute and chronic respiratory failure, unspecified whether with hypoxia or hypercapnia; B19.10 Unspecified viral hepatitis B without hepatic coma; F10.288 Alcohol dependence with other alcohol-induced disorder; E87.4 Mixed disorder of acid-base balance; E44.0 Moderate protein-calorie malnutrition; R15.9 Full incontinence of feces; M10.9 Gout, unspecified; K72.90 Hepatic failure, unspecified without coma; B19.20 Unspecified viral hepatitis C without hepatic coma; E86.0 Dehydration; K70.30 Alcoholic cirrhosis of liver without ascites; D69.6 Thrombocytopenia, unspecified; E83.51 Hypocalcemia; E78.5 Hyperlipidemia, unspecified; Z66 Do not resuscitate; Z68.29 Body mass index [BMI] 29.0-29.9, adult; Z20.822 Contact with and (suspected) exposure to COVID-19
CPT/HCPCS: 36415; 36569; 51702; 70450; 71045; 71250; 72125; 74018; 76770; 80048; 80053; 80076; 80307; 80320; 81003; 81015; 82140; 82274; 82550; 82805; 82947; 83605; 83735; 83880; 84145; 84165; 84484; 84550; 85014; 85018; 85025; 85610; 85730; 86021; 86850; 86900; 86901; 87040; 87086; 87088; 93005; 94002; 94003; 94660; 96374; 96375; 99285; C9113; J0610; J1720; J1940; J2020; J2354; J2543; J3411; J3430; J3480; J7030; J7040; J7050; J7060; P9047; U0003